=== PATIENT | female | born 1945 | race Caucasian/White ===

== ENCOUNTER 2020-08-03 08:43 | Outpatient (CLI) | payer OTHER, SELFPAY ==
--- NOTE | ~2020-08-03 | US_ITS ---
EXAMINATION: US art doppler w press MICHELL VICENTE EXAM DATE: 08/03/2020 12:38 INDICATION: Peripheral vascular disease. Nonhealing toe wound right foot. High blood pressure. TECHNIQUE: Segmental pressures and plethysmographic and Doppler waveforms of the brachial and lower e xtremity arteries were obtained. There is no prior study for comparison. FINDINGS: Right and left brachial artery pressures of 165 mm Hg and 178 mm Hg, respectively, are concordant (no rmal difference <= 30 mmHg). The right and left thigh-brachial pressure indices are 0.54, 0.52, resp ectively (normal > 1.2). RIGHT LEG: The ankle-brachial index (SRAVANTHI) is 0.35 (normal >= 0.9-1). The great toe-brachial index (TBI) is could not obtain (normal >= 0.65). The lower extremity ratios, segmental pressure gradients as follows; Proximal superficial femoral artery:- 0.54 (96 mmHg). Distal superficial femoral artery: ----- 0.52 (92 mmHg). Popliteal: 0.39 (69 mmHg). Dorsalis pedis: 0.26 (47 mmHg). Posterior tibial: 0.35 (63 mmHg). (Normal gradients <= 20-30 mmHg between adjacent levels on the same leg or the same levels on the two legs). Arterial waveforms are monophasic. LEFT LEG: The ankle-brachial index (SRAVANTHI) is 0.39 (normal >= 0.9-1). The great toe-brachial index (TBI) is could not obtain (normal >= 0.65). The lower extremity ratios, segmental pressure gradients as follows; Proximal superficial femoral artery:- 0.52 (93 mmHg). Distal superficial femoral artery: ----- 0.25 (44 mmHg). Popliteal: 0.33 (58 mmHg). Dorsalis pedis: 0.39 (69 mmHg). Posterior tibial: 0.39 (69 mmHg). (Normal gradients <= 20-30 mmHg between adjacent levels on the same leg or the same levels on the two legs). Arterial waveforms are monophasic. IMPRESSION: 1. Right ankle-brachial index 0.35, severely decreased. 2. Left ankle-brachial index 0.39, severely decreased. 3. Monophasic waveforms with poor inflow suspected probably from iliac arterial sclerosis, stenosis. Reviewed, dictated and finalized at location A. IMPRESSION: 1. Right ankle-brachial index 0.35, severely decreased. 2. Left ankle-brachial index 0.39, severely decreased. 3. Monophasic waveforms with poor inflow suspected probably from iliac arteria l sclerosis, stenosis.
== END 2020-08-03 08:44 | disposition home or self-care (01) ==
PROVIDERS: PCP Family Medicine; Visit Provider Podiatrist Foot & Ankle Surgery
DX: I73.9 Peripheral vascular disease, unspecified (principal)
CPT/HCPCS: 93923

== ENCOUNTER 2020-10-15 11:38 | Inpatient (IN) | payer OTHER, SELFPAY ==
[2020-10-15] VITALS (9 sets, daily range): BP systolic 109–129; BP diastolic 40–68; PULSE 98–112; RESP 17–22; TEMP 36.4–37; O2SAT 90–95; BMI 19.5
--- NOTE | ~2020-10-15 | CT_ITS ---
EXAMINATION: CT abdomen pelvis wo con DATE: 10/23/2020 15:08 INDICATION: Worsening abdominal pain. TECHNIQUE: Computed tomography (CT) of the abdomen and pelvis was performed without intravenous contr ast. Automated exposure control and iterative reconstruction technique were employed. The dose-length product was 500.04 mGy-cm. COMPARISON: CT abdomen and pelvis 10/15/2020 FINDINGS: The visualized portions of the lung bases demonstrate mucous plugging in right lower lobe. There are small pleural effusions, right worse than left. There are airspace opacities in right lower lobe, likely atelectasis. The heart size is normal. There are coronary artery calcifications. No per icardial effusion. The liver, gallbladder, spleen, pancreas, and adrenal glands are normal. Calcifica tions at the hilum of the kidneys are likely at least predominantly vascular. There is calcified athe rosclerosis of the aorta and many of the other arteries. Partially visualized are a right-sided axial -femoral bypass graft and a femorofemoral bypass graft. There is diffuse wall thickening of the colon , consistent with colitis. There are no dilated loops of bowel. There is trace pelvic ascites. There are no pathologically enlarged lymph nodes. There is internal fixation of proximal left femur. There are chronic burst fractures of the T10-L5 vertebral bodies. There is moderate lumbar spondylosis. IMPRESSION: 1. Pancolitis. 2. Small pleural effusions, left worse than right. 3. Mucous plugging in right lung lower lobe. Reviewed, dictated and finalized at location A. TY PATROL OFFICER
--- NOTE | ~2020-10-15 | XR_ITS ---
EXAMINATION: XR chest 1V portable EXAM DATE: 10/15/2020 12:07 INDICATION: Cough, nausea, diarrhea. TECHNIQUE: Portable AP frontal chest x-ray was obtained. Comparison is made to prior examination from 04/21/2016. FINDINGS: The lungs are clear. There are no pleural effusions. Cardiac silhouette is prominent but magnified on this AP technique. There is no pneumothorax suspected. The bones and soft tissues are unremarkable. IMPRESSION: No acute cardiopulmonary findings. Reviewed, dictated and finalized at location A. LOPMENT WRITER
--- NOTE | ~2020-10-15 | XR_ITS ---
XR abdomen obstructive series DATE: 10/19/2020 09:29 INDICATION: Generalized abdominal tenderness TECHNIQUE: Portable supine and upright AP views on 10/19/2020 at 0925 hours COMPARISON: 10/15/2020 CT abdomen pelvis FINDINGS: There are biconcave compression fracture deformities throughout the lower thoracic and lumb ar spine. Diffuse osteopenia. Compression screw and nail of proximal left femur. There is extensive atherosclerotic calcification of the abdominal aorta and iliac and femoral arterie s. Nonspecific bowel gas pattern without evidence of obstruction. No intraperitoneal free air is detecte d. IMPRESSION: Nonspecific bowel gas pattern; no evidence of obstruction or intraperitoneal free air Reviewed, dictated and finalized at Location A. Reviewed, dictated and finalized at location A. IQUER ZIGZAG IMPRESSION: Nonspecific bowel gas pattern; no evidence of obstruction or intrap eritoneal free air
--- NOTE | ~2020-10-15 | XR_ITS ---
XR chest 2V 10/16/2020 13:28 Indication: Hypoxia Procedure: AP and lateral views of the chest Comparison: Comparison to multiple prior studies sequentially, with oldest reviewed study dated 12/04/2013. Findings: Cardiomegaly. The lungs are hyperinflated which is consistent with, but not diagnostic of c hronic obstructive pulmonary disease. Right basilar infiltrates may represent atelectasis and/or pneu monia. There are multiple chronic thoracic compression fractures. No significant pleural effusion, ed wu or pneumothorax. No acute osseous abnormality. Impression: 1: Right basilar infiltrates may represent atelectasis and/or developing pneumonia. Reviewed, dictated and finalized at location A. CIATE MEDIA DIRECTOR Impression: 1: Right basilar infiltrates may represent atelectasis and/or developing pneumo eduarda.
--- NOTE | ~2020-10-15 | CT_ITS ---
EXAMINATION: CTA chest PE protocol DATE: 10/17/2020 13:38 INDICATION: Hypoxia. Tachycardia. TECHNIQUE: Computed tomography angiography (CTA) of the chest was performed with 100 mL Omnipaque-350 intravenous contrast timed to evaluate the pulmonary arteries. Coronal maximum intensity projection 3D-reconstructions were created by the technologist. Automated exposure control and iterative reconst ruction technique were employed. The dose-length product was 168.29 mGy-cm. COMPARISON: Chest 2 views 10/16/2020, CT abdomen and pelvis 10/15/2020 FINDINGS: Motion artifact is noted. There is mild scarring at the lung apices. There is mild emphysem a. There are small pleural effusions. There is mild atelectasis bilaterally. The heart size is normal . There are coronary artery calcifications. No pericardial effusion. There is no pulmonary embolus. T here is a patent right-sided axillofemoral bypass graft. There are calcifications at the linda of the kidneys, at least some of which are vascular. There are chronic fractures of most vertebral bodies. IMPRESSION: 1. No pulmonary embolus. 2. Small pleural effusions. 3. Mild emphysema. Reviewed, dictated and finalized at location A. T SPECIALIST
--- NOTE | ~2020-10-15 | US_ITS ---
EXAMINATION: US renal BI EXAM DATE: 10/16/2020 10:00 INDICATION: Left renal lesion on CT abd/pelvis. Bilateral nephrolithiasis. TECHNIQUE: Multiple grayscale and Doppler images of the kidneys were obtained (by a technologist who performed the scan) and subsequently reviewed. Correlation is made to CT from yesterday. FINDINGS: Right kidney: There is normal contour and echogenicity. It measures 9.4 x 5.2 x 4.9 centimeters. Th ere are no focal renal lesions identified. There is no hydronephrosis. Can't identify the kidney st ones. Left kidney: There is normal contour and echogenicity. It measures 12.0 x 4.9 x 4.9 centimeters. Th ere are no focal renal lesions identified. There is no hydronephrosis. Can't identify the kidney st ones. Bladder unremarkable. IMPRESSION: 1. Sonographically unremarkable kidneys, without evidence of underlying mass. Reviewed, dictated and finalized at location B. RMATION TECHNOLOGY MANAGER
--- NOTE | ~2020-10-15 | CT_ITS ---
EXAMINATION: CT abdomen pelvis w con EXAM DATE: 10/15/2020 13:13 INDICATION: Abdominal pain. TECHNIQUE: Spiral CT of the abdomen and pelvis was performed following intravenous injection of 100 m L Omnipaque 350. Axial, coronal and sagittal images were reviewed. The dose-length product (DLP) fo r this examination was 270.40 mGy-cm. The exposure was tailored according to patient size (auto mA e xposure control), and iterative reconstruction (ASIR) was used as additional dose reduction technique . There is no prior study for comparison. FINDINGS: There is severe scattered arteriosclerotic disease. There is a graft extending down the rig ht side of the thorax and abdomen to both common femoral arteries. The liver, spleen, adrenal glands and pancreas are unremarkable. Gallbladder is unremarkable. No biliary obstruction. Bilateral calyceal stones. There is small region of decreased enhancement in the left kidney superior pole, could be hemorrhagic cyst, pyelonephritis or less likely mass. Probable atrophic uterus. The bladder is unremarkable. There is no retroperitoneal or pelvic lymphadenopathy. The stomach and small bowel are unremarkable. Moderately edematous colonic wall throughout with flui d inside, appearance consistent with colitis. No pneumatosis or portal venous gas. Probable identific ation of a normal appendix. No free intraperitoneal gas. The heart is normal in size. There are no pericardial or pleural effusions. The lung bases are unremarkable. There are no osteoblastic or osteolytic lesions identified. Moderate chronic compression of all thoracolumbar vertebral bodies im aged. Left hip gamma nails. IMPRESSION: 1. Pancolitis. Probably infectious but given the extensive arteriosclerosis check lactate levels. 2. Small regions of decreased enhancement superior pole left kidney, differential diagnosis includin g hemorrhagic cyst, pyelonephritis, renal mass. Urinalysis. 3. Bilateral nephrolithiasis. 4. Moderate chronic compression fractures. Reviewed, dictated and finalized at location A. CONTROLLER IMPRESSION: 1. Pancolitis. Probably infectious but given the extensive arteriosclerosis ch ivanna lactate levels. 2. Small regions of decreased enhancement superior pole left kidney, different ial diagnosis including hemorrhagic cyst, pyelonephritis, renal mass. Urinalysi s. 3. Bilateral nephrolithiasis. 4. Moderate chronic compression fractures.
--- NOTE | ~2020-10-15 | XR_ITS ---
EXAMINATION: XR abdomen/kub 1V EXAM DATE: 10/22/2020 22:49 INDICATION: worsening stomach cramping TECHNIQUE: Frontal projection(s) of the abdomen for interpretation. Comparison is made to prior exami nation from 10/18/2020. FINDINGS: There is expected amount of colonic stool and gas. No small bowel dilation, nonobstructiv e bowel gas pattern. There are no suspicious calcifications identified. There is no organomegaly suspected. The bones are osteopenic. There are bony degenerative changes. Multiple chronic appearin g thoracolumbar compression fractures. There is left hip gamma nail. IMPRESSION: Unremarkable abdomen x-ray exam. Reviewed, dictated and finalized at location A. AD CUTTER
--- NOTE | 2020-10-15 12:00 | PC.NURSE ---
INFORMED PT OF NEED FOR URINE SPECIMEN. PT REFUSES. REFUSES STRAIGHT CATH AT THIS TIME.
[2020-10-15 12:06] LABS: Hematocrit 35.9 % (37.0-47.0); Hemoglobin 12.3 g/dL (12.0-15.0); Mean Corpuscular HGB Conc 34.3 g/dl (32-36); Mean Corpuscular Hemoglobin 32.5 pg (26-34); Mean Platelet Volume 10.8 fl (7.4-10.4); Platelet Count Result 219 k/mm3 (150-375); Red Blood Count 3.78 M/mm3 (4.2-5.4); Red Cell Distribution Width 13.6 % (11.5-14.5); White Blood Count 25.3 K/mm3 (4.5-10.0)
[2020-10-15 12:24] LABS: Sodium 133 mmol/L (137-145)
[2020-10-15 12:25] LABS: Anion Gap 9 mmol/L (8-16); Blood Urea Nitrogen 13 mg/dL (7-17); Calcium 8.4 mg/dL (8.4-10.2); Carbon Dioxide 32 mmol/L (22-30); Chloride 92 mmol/L (98-107); Estimated CRCL calculation 53 ml/min; Estimated Glomerular Filt Rate > 60; Glucose 123 mg/dL (65-105); Potassium 3.5 mmol/L (3.4-5.0)
[2020-10-15 12:26] LABS: Alanine Aminotransferase 18 U/L (4-35); Albumin Level 3.4 g/dL (3.5-5.1); Alkaline Phosphatase 149 U/L (38-126); Aspartate Amino Transferase 25 U/L (14-36); Bilirubin,Total 0.8 mg/dL (0.2-1.3)
[2020-10-15 12:27] LABS: Lactic Acid Reflex 1.7 mmol/L (0.7-2.1); Lipase 16 U/L (23-300)
--- NOTE | 2020-10-15 12:31 | ED.GENADULT ---
HPI - General Adult General Chief complaint: Nausea/Vomiting/Diarrhea Stated complaint: diarrhea for a couple weeks Time Seen by Provider: 10/15/20 12:15 Source: patient Mode of arrival: ambulatory Limitations: no limitations History of Present Illness HPI narrative: 75 years old white female who lives alone presents with diarrhea for the last 2 weeks associated with abdominal cramps. Patient reports watery stool 2-3 times a day. Patient denies any fever, chills, nausea, vomiting, similar symptoms, exposure to anybody known having COVID-19. Related Data Home Medications Medication Instructions Recorded Confirmed alendronate mg PO 10/15/20 amlodipine 10/15/20 hydrocodone-acetaminophen 10/15/20 10/15/20 rosuvastatin mg 10/15/20 Allergies Allergy/AdvReac Type Severity Reaction Status Date / Time diphenhydramine Allergy Intermediate SEVERE Verified 10/15/20 11:53 ITCHING codeine Allergy Unknown Unknown Verified 10/15/20 11:53 Penicillins Allergy Unknown Confusion Verified 10/15/20 11:53 Review of Systems Review of Systems: Narrative: CONSTITUTIONAL: Denies fever, chills, or sweats. EYES: Denies visual changes, redness, or discharge. ENT: Denies rhinorrhea, congestion, sore throat, or otalgia. CARDIOVASCULAR: Denies chest pain, palpitations, or edema. RESPIRATORY: Denies cough or dyspnea. GASTROINTESTINAL: Abdominal cramps with diarrhea GENITOURINARY: Denies dysuria or hematuria. SKIN: Denies rash or itching. MUSCULOSKELETAL: Denies back pain, joint pain, or myalgia. NEUROLOGIC: Denies headache, numbness, or weakness. PSYCHIATRIC: Denies anxiety or depression. PMFSH Family History Family History Other Family history of cardiovascular disease Social History Social History Smoking status: Never smoker Alcohol intake: current Gender identity (if verbalized by the patient): Female Exam Narrative: Exam Narrative: General appearance: Well-developed, well-nourished Skin: Normal color Head: Normocephalic, nontraumatic Eyes: Clear conjunctiva ENT: Oropharynx normal, ears normal, nose normal Neck: Supple, nontender Chest and respiratory: Airway patent, no respiratory distress, no accessory muscle use Heart: Regular rate/rhythm Abdomen: Diffusely tender, guarding, no rebound, quiet bowel sounds Vascular: Normal peripheral pulses, normal capillary refill. Musculoskeletal: Normal range of motion, nontender back Neurologic: Alert and oriented ?3, PROGRAMMER NUMERICAL CONTROL is normal as tested, no gross motor deficit Course Course Emergency Course: Stable Consultations Consultation #1: NANDINI Date: 10/15/20 Time: 13:57 Vital Signs Vital signs: Vital Signs Temperature 36.9 C 10/15/20 11:48 Pulse Rate 112 H 10/15/20 11:48 Respiratory Rate 17 10/15/20 11:48 Blood Pressure 127/60 10/15/20 11:48 Pulse Oximetry 95 10/15/20 11:48 Temperature 36.9 C 10/15/20 11:48 Pulse Rate 105 H 10/15/20 13:00 Respiratory Rate 20 10/15/20 13:00 Blood Pressure 124/50 L 10/15/20 13:00 Pulse Oximetry 95 10/15/20 13:00 Medical Decision Making [facility] Narrative Medical decision making narrative: Patient presents with diarrhea and abdominal cramps. Labs, IV fluids, CT abdomen and pelvis with IV contrast ordered. Further plan to follow Vital Signs Vital Signs: Vital Signs Temperature 36.9 C 10/15/20 11:48 Pulse Rate 112 H 10/15/20 11:48 Respiratory Rate 17 10/15/20 11:48 Blood Pressure 127/60 10/15/20 11:48 Pulse Oximetry 95 10/15/20 11:48 Temperature 36.9 C 10/15/20 11:48 Pulse Rate 105 H 10/15/20 13:0
[2020-10-15 12:42] LABS: Band Neutrophils Percent 6 % (0-6); Lymphocytes Absolute Manual 1.51 K/mm3 (1.1-4.5); Monocytes Absolute Manual 1.01 K/mm3 (0.1-0.90); Monocytes Percent Manual 4 % (3-9); Neutrophils Absolute Manual 22.77 K/mm3 (1.7-7.2); Neutrophils Percent Manual 84 % (46-73); Platelet Estimate Adequate (Adequate); Total Cells Counted 100
[2020-10-15] MEDS: SODIUM CHLORIDE 0.9% IV 1,000 ML 999 ML IV CONT (12:58)
--- NOTE | 2020-10-15 13:16 | PC.NURSE ---
PT STATES STILL UNABLE TO URINATE AT THIS TIME
[2020-10-15] MEDS: metroNIDAZOLE 500 MG/ISO 100ML 500 MG/100 ML BAG 100 MG IVPB (13:58)
--- NOTE | 2020-10-15 15:30 | PM.IMHP ---
H&P: HPI History of Present Illness Date/Time: 10/15/20 15:30 Chief complaint: Pancolitis, Diarrhea Narrative: Gregoria Vuong is a 75 year old female smoker with a history of hyperlipidemia was in her usual state of health until 2 weeks ago. She began having loose stools 2 to 3 times a day associated with abdominal cramping. This gradually worsened over the last couple of weeks. Today she had severe cramping and was incontinent of stool had to change her clothes and wash herself before she came to the emergency room. Her cramps or mainly upper abdominal without associated nausea or vomiting. There partially relieved by bowel movements. Initially were completely relieved by bowel movements. She has had decreased appetite eating only some eggs in gel over the past couple of weeks. Decreased fluid intake. Dizzy and lightheaded with the cramps prior to bowel movements. She denied recent travel or antibiotic use. No exposure to ill individuals. No nausea or emesis. No melena or hematochezia. She smokes about 6 cigarettes per day. She does not drink or use recreational drugs. No prior history of gastrointestinal issues. No recent intake of old or undercooked foods. Denied chest pain, shortness of breath, back pain, focal weakness or numbness, palpitations, rash, abnormal bleeding, dysuria or frequency. Review of Systems Review of Systems: All systems reviewed & are unremarkable except as noted in HPI and below PMFSH Past Medical History Medical History (Updated 10/15/20 @ 15:40 by Terry Woodward MD) H/O compression fracture of spine Hyperlipidemia Osteoporosis Peripheral arterial disease with history of revascularization Surgical History Surgical History (Updated 10/15/20 @ 15:51 by Terry Woodward MD) H/O carpal tunnel repair Right Hand History of open reduction and internal fixation (ORIF) procedure Left Tibia S/P vascular bypass LLE 08/2020 Family History Family History (Updated 10/15/20 @ 16:05 by Amaya Cai RN) Mother Heart attack Other Family history of cardiovascular disease Social History Social History (Updated 10/15/20 @ 15:52 by Terry Woodward MD) Years smoked: 55 Smoking status: Current every day smoker Tobacco type: cigarettes Additional smoking assessment comments: smoked 1/2 ppd for over 50 years Alcohol intake: former Alcohol use details: Does not currently drink Substance use: never Substance use type: does not use Living arrangements: alone Additional living arrangements comments: who resides in her own home with her cat Occupation/Education: retired Gender identity (if verbalized by the patient): Female Spiritual care concerns: No Meds Home Medications and Allergies Home Medications Medication Instructions Recorded Confirmed Type alendronate mg PO 10/15/20 History amlodipine 10/15/20 History hydrocodone-acetaminophen 10/15/20 10/15/20 History rosuvastatin mg 10/15/20 History Allergies Allergy/AdvReac Type Severity Reaction Status Date / Time diphenhydramine Allergy Intermediate SEVERE Verified 10/15/20 15:42 ITCHING codeine Allergy Unknown Confusion Verified 10/15/20 15:42 Penicillins Allergy Unknown Confusion Verified 10/15/20 15:42 Vital Signs Vital Signs - 24 hr 10/15/20 11:48 10/15/20 13:00 10/15/20 14:02 Temperature 98.4 F Pulse Rate 112 H 105 H 107 H Respiratory Rate 17 20 20 Blood Pressure 127/60 124/50 L 113/68 Pulse Oximetry 95 95 95 10/15/20 15:14 10/15/20 15:26 Temperature Pulse Rate 105 H 105 H Respiratory Rate 22 H 22 H Blood Pressure 119/60 119/60 Pulse Oximetry 92 93 Exam Narrative: Exam Narrative: HEENT: PERRL, sclerae nonicteric, pharyngeal mucosa pink and intact NECK: No JVD, adenopathy, or thyromegaly CHEST: Clear to auscultation. Normal effort. HEART: NL S1/S2, regular, no murmur ABDOMEN: BS+, soft, no mass, no bruits, DIFFUSE TEN
--- NOTE | 2020-10-15 15:49 | ADMGEN ---
This patient, Gregoria Vuong, was admitted to Medical Room 252-01. Patient/family oriented to hospital policies and general routines including ID bracelet, bed and alarms, visiting hours, pain management, procedures, bathroom and other care routines, personal items, smoking policy, room service/diet, and visiting hours. Information on how to activate the Rapid Response Team has been discussed. Patient/Family are encouraged to report perceived risks to care and to ask questions if they do not understand what they are told or what they should do. Report received from DIONNE Hyde.
[2020-10-15] MEDS: KCL 20 MEQ/D5/0.9% SOD CHL 1,000 ML 100 ML IV CONT (16:13)
[2020-10-15] MEDS: PROMETHAZINE HCL 25 MG/ML AMPUL 12.5 MG IV PUSH (18:42)
[2020-10-15] MEDS: metroNIDAZOLE 250MG/ISO 50 ML 250 MG/50 ML BAG 50 MG IVPB (18:43)
[2020-10-15] MEDS: metroNIDAZOLE 250MG/ISO 50 ML 250 MG/50 ML BAG 100 MG IVPB (23:45)
[2020-10-16] VITALS (9 sets, daily range): BP systolic 116–140; BP diastolic 43–60; PULSE 100–114; RESP 18–22; TEMP 36.4–37.3; O2SAT 85–98
[2020-10-16] MEDS: PROMETHAZINE HCL 25 MG/ML AMPUL 12.5 MG IV PUSH (02:30)
[2020-10-16 05:10] LABS: Basophils Absolute Auto 0.1 K/mm3 (0.0-0.1); Basophils Percent Auto 0.4 % (0.2-1.2); Eosinophils Absolute Auto 0.1 K/mm3 (0-0.3); Eosinophils Percent Auto 0.2 % (0-4.4); Hemoglobin 10.6 g/dL (12.0-15.0); Immature Granulocyte Absolute 0.17 K/mm3 (0.00-0.031); Immature Granulocyte Percent A 0.7 % (0-0.5); Lymphocytes Absolute Auto 0.45 K/mm3 (0.9-3.2); Lymphocytes Percent Auto 1.8 % (18.3-44.2); Mean Corpuscular HGB Conc 33.1 g/dl (32-36); Mean Corpuscular Hemoglobin 30.8 pg (26-34); Mean Platelet Volume 11.1 fl (7.4-10.4); Monocytes Absolute Auto 2.2 K/mm3 (0.1-0.6); Monocytes Percent Auto 8.8 % (2.6-8.5); Neutrophils Absolute Auto 22.1 K/mm3 (1.3-6.7); Neutrophils Percent Auto 88.1 % (45.5-73.1); Platelet Count Result 201 k/mm3 (150-375); Red Blood Count 3.44 M/mm3 (4.2-5.4); Red Cell Distribution Width 13.5 % (11.5-14.5)
[2020-10-16 05:13] LABS: Alanine Aminotransferase 12 U/L (4-35); Albumin Level 2.5 g/dL (3.5-5.1); Alkaline Phosphatase 114 U/L (38-126); Anion Gap 5 mmol/L (8-16); Aspartate Amino Transferase 17 U/L (14-36); Bilirubin,Total 0.6 mg/dL (0.2-1.3); Blood Urea Nitrogen 8 mg/dL (7-17); Calcium 7.4 mg/dL (8.4-10.2); Carbon Dioxide 29 mmol/L (22-30); Chloride 100 mmol/L (98-107); Estimated CRCL calculation 82 ml/min; Estimated Glomerular Filt Rate > 60; Glucose 153 mg/dL (65-105); Potassium 3.5 mmol/L (3.4-5.0); Sodium 134 mmol/L (137-145)
[2020-10-16] MEDS: KCL 20 MEQ/D5/0.9% SOD CHL 1,000 ML 100 ML IV CONT (05:52)
[2020-10-16] MEDS: metroNIDAZOLE 250MG/ISO 50 ML 250 MG/50 ML BAG 50 MG IVPB ×3 (05:52→17:15)
[2020-10-16 06:14] LABS: Large Platelets Present; Platelet Estimate Adequate (Adequate)
[2020-10-16 06:15] LABS: Atypical Lymphocytes Present
[2020-10-16] MEDS: CYANOCOBALAMIN 1,000 MCG TABLET 1000 MCG PO (08:28)
[2020-10-16] MEDS: ASCORBIC ACID 500 MG TABLET 1000 MG PO (08:28)
[2020-10-16] MEDS: ASPIRIN 81 MG CHEWABLE TABLET PO (08:28)
--- NOTE | 2020-10-16 10:22 | WPDGICN ---
Assessment and Plan Assessment and plan (1) Pancolitis: Code(s): K51.00 - Ulcerative (chronic) pancolitis without complications Status: Acute Assessment and Plan: Pancolitis identified by CT scan correlates with her diarrhea most likely infectious etiology. Plan is for stool cultures broad-spectrum antibiotic coverage if this fails to alleviate her symptoms a colonoscopy can be considered electively. We will follow with you. (2) Diarrhea: Qualifiers: Diarrhea type: unspecified type Qualified Code(s): R19.7 - Diarrhea, unspecified Code(s): R19.7 - Diarrhea, unspecified Status: Acute (3) Peripheral arterial disease with history of revascularization: Code(s): I73.9 - Peripheral vascular disease, unspecified; Z98.890 - Other specified postprocedural states Status: Acute GI Consult Note Consult date/time: 10/16/20 10:22 HPI: Gregoria Vuong is a 75 year old female Seen in evaluation at the request of the hospitalist service. Patient reports 1-2 week history of diarrhea stools. She reports loose stools 2 to 3 times a day that has persisted during this period of time. Because of abdominal cramping and incontinence of stool she present to the emergency room. A CT scan in the emergency room suggested pancolitis. For this reason she was admitted for IV fluids and further evaluation. Patient denies a known fever. She has had no bleeding. She denies weight loss. Patient denies any recent travel. She has not no known exposure to ill associates. Patient reports having had a a peripheral vascular surgery done on her right lower extremity several months ago. Review of Systems Review of Systems: All systems reviewed & are unremarkable except as noted in HPI and below PMFSH Past Medical History Medical History (Updated 10/15/20 @ 15:40 by Terry Woodward MD) H/O compression fracture of spine Hyperlipidemia Osteoporosis Peripheral arterial disease with history of revascularization Surgical History Surgical History (Updated 10/15/20 @ 15:51 by Terry Woodward MD) H/O carpal tunnel repair Right Hand History of open reduction and internal fixation (ORIF) procedure Left Tibia S/P vascular bypass LLE 08/2020 Family History Family History (Updated 10/15/20 @ 16:05 by Amaya Cai RN) Mother Heart attack Other Family history of cardiovascular disease Social History Social History (Updated 10/15/20 @ 15:52 by Terry Woodward MD) Years smoked: 55 Smoking status: Current every day smoker Tobacco type: cigarettes Additional smoking assessment comments: smoked 1/2 ppd for over 50 years Alcohol intake: former Alcohol use details: Does not currently drink Substance use: never Substance use type: does not use Living arrangements: alone Additional living arrangements comments: who resides in her own home with her cat Occupation/Education: retired Gender identity (if verbalized by the patient): Female Spiritual care concerns: No Meds Home Medications and Allergies Home Medications Medication Instructions Recorded Confirmed Type Aleve 220 mg PO BID 10/15/20 10/15/20 History Aspirin Childrens 81 mg PO DAILY 10/15/20 10/15/20 History Glucosamine 2,000 mg PO BID 10/15/20 10/15/20 History alendronate 70 mg PO WEEKLY 10/15/20 10/15/20 History amlodipine 10 mg PO DAILY 10/15/20 10/15/20 History ascorbate calcium (vitamin C) 1,200 mg PO DAILY 10/15/20 10/15/20 History ascorbic acid (vitamin C) 1 g PO DAILY 10/15/20 10/15/20 History estefania-mag-vit [id number] See Rx Instructions .ROUTE .COMPLEX 10/15/20 10/15/20 History [Estefania-Mag Zinc III] cetirizine 10 mg PO DAILY 10/15/20 10/15/20 History cyanocobalamin (vitamin B-12) 1,000 mcg PO DAILY 10/15/20 10/15/20 History [Vitamin B-12] guaifenesin 400 mg PO DAILY 10/15/20 10/15/20 History hydrocodone-acetaminophen 2 tablet PO Q4H PRN 10/15/20 10/15/20 Histor
--- NOTE | 2020-10-16 10:32 | PM.IMPN ---
Progress Note: A&P Assessment and Plan (1) Sepsis: Code(s): A41.9 - Sepsis, unspecified organism Status: Acute Assessment and Plan: Supported by leukocytosis, tachycardia, and tachypnea. The suspected source is pancolitis. Continue IV antibiotics. Blood cultures were obtained and are pending. Lactic acid is normal. Continue to monitor CBC daily, hemodynamics, and urine output. (2) Pancolitis: Code(s): K51.00 - Ulcerative (chronic) pancolitis without complications Status: Acute Assessment and Plan: She reports diarrhea, nausea, and vomiting for 4 weeks, worse in the past 4 days. Differential diagnosis includes infectious, ischemic, and inflammatory bowel disease. She did take clindamycin and cephalexin 06/2020 and 07/2020. Lactic acid is normal. She has no hx of similar episodes and no hx of IBD. Stool cultures were ordered and are pending. Nausea and vomiting have resolved. She has not had any further episodes of diarrhea today. Advance diet slowly as tolerated. Continue empiric broad-spectrum antibiotic therapy with IV levaquin and metronidazole. Stop IV fluids as she is tolerating PO intake well. Appreciate GI input. Colonoscopy may be considered outpatient should sx persist. WBC has improved minimally today but is still markedly elevated. She is afebrile. Await stool cultures. (3) Acute respiratory failure with hypoxia: Code(s): J96.01 - Acute respiratory failure with hypoxia Status: Acute Assessment and Plan: Etiology unclear. CXR was ordered last night as oxygen saturation dropped while sleeping and 1 liter pre nasal cannula applied. She was increased to 2 liters per nasal cannula today. CXR showed no acute process. Will check apnea link. Stop IV fluids. She reports a hx of chronic congestion, cough for 2 years. She also has pursed lip breathing at times. Expiration is prolonged with some rhonchi at the bases. She will benefit from outpatient pulmonary function testing. Will add albuterol PRN. Repeat CXR for today. Continue supplemental oxygen as needed to maintain oxygen saturation >90%. Wean as tolerated. I was able to wean her to room air during my visit. Monitor closely. (4) Peripheral arterial disease with history of revascularization: Code(s): I73.9 - Peripheral vascular disease, unspecified; Z98.890 - Other specified postprocedural states Status: Acute Assessment and Plan: Continue ASA and rosuvastatin. Continue outpatient follow-up with vascular surgery. (5) Dry mouth: Code(s): R68.2 - Dry mouth, unspecified Status: Acute Assessment and Plan: Continue biotene. (6) Hypertension: Code(s): I10 - Essential (primary) hypertension Status: Acute Assessment and Plan: Blood pressures are reasonable. Amlodipine is on hold for now. Resume when clinically appropriate. (7) Tobacco dependence: Code(s): F17.200 - Nicotine dependence, unspecified, uncomplicated Status: Acute Assessment and Plan: Continue to encourage smoking cessation. I spent 5 minutes counseling the patient on smoking cessation today including adverse cardiovascular outcomes and cancer. She declines the need for a nicotine patch. She is currently smoking 6 cigarettes per day. Additional Plan Wound care will be consulted for her right great toe wound. Subjective Date/time seen: 10/16/20 10:32 Mrs. Vuong is a 75 y.o. female with PMH significant for hyperlipidemia, osteoporosis, hypertension, and peripheral arterial disease s/p femoral to femoral bypass with vein graft 09/04/20 who is seen in follow-up for pancolitis. She reports no further nausea or vomiting today. She has not had any diarrhea yet. She is tolerating clear liquids. She reports chronic dry mouth and uses biotene at home. She denies chest pain and dyspnea. She denies calf pain and swelling. She reports no significant abdominal pain at this ti
[2020-10-16] MEDS: ROSUVASTATIN 10 MG TABLET PO (11:23)
[2020-10-16] MEDS: SALIVA SUBSTITUTE COMBO RINSE 237 ML BOTTLE 15 ML PO ×3 (11:23→21:28)
[2020-10-16] MEDS: NEOMYCIN/POLYMYXIN/BACITRACIN OINTMENT 15 GM TUBE 1 APPLIC TOPICAL (14:46)
[2020-10-16] MEDS: levoFLOXacin 500 MG/D5W 100 ML 500 MG/100 ML BAG 100 MG IVPB (14:46)
[2020-10-16] MEDS: ENOXAPARIN 40 MG/0.4 ML SYRINGE SUB-Q (21:28)
[2020-10-17] VITALS (8 sets, daily range): BP systolic 98–130; BP diastolic 42–64; PULSE 72–106; RESP 16–22; TEMP 35.9–37; O2SAT 93–97
[2020-10-17] MEDS: metroNIDAZOLE 250MG/ISO 50 ML 250 MG/50 ML BAG 100 MG IVPB ×2 (00:08→06:24)
[2020-10-17 05:55] LABS: Basophils Absolute Auto 0.1 K/mm3 (0.0-0.1); Basophils Percent Auto 0.4 % (0.2-1.2); Eosinophils Absolute Auto 0.1 K/mm3 (0-0.3); Eosinophils Percent Auto 0.6 % (0-4.4); Hematocrit 31.3 % (37.0-47.0); Hemoglobin 10.5 g/dL (12.0-15.0); Immature Granulocyte Absolute 0.11 K/mm3 (0.00-0.031); Immature Granulocyte Percent A 0.7 % (0-0.5); Lymphocytes Absolute Auto 0.62 K/mm3 (0.9-3.2); Lymphocytes Percent Auto 3.9 % (18.3-44.2); Mean Corpuscular HGB Conc 33.5 g/dl (32-36); Mean Corpuscular Hemoglobin 31.7 pg (26-34); Mean Corpuscular Volume 94.6 fl (80-100); Mean Platelet Volume 10.7 fl (7.4-10.4); Monocytes Absolute Auto 1.7 K/mm3 (0.1-0.6); Monocytes Percent Auto 10.6 % (2.6-8.5); Neutrophils Absolute Auto 13.5 K/mm3 (1.3-6.7); Neutrophils Percent Auto 83.8 % (45.5-73.1); Platelet Count Result 210 k/mm3 (150-375); Red Blood Count 3.31 M/mm3 (4.2-5.4); Red Cell Distribution Width 13.9 % (11.5-14.5); White Blood Count 16.1 K/mm3 (4.5-10.0)
[2020-10-17 06:18] LABS: Anion Gap 4 mmol/L (8-16); Blood Urea Nitrogen 7 mg/dL (7-17); Calcium 7.3 mg/dL (8.4-10.2); Carbon Dioxide 30 mmol/L (22-30); Chloride 99 mmol/L (98-107); Estimated CRCL calculation 67 ml/min; Estimated Glomerular Filt Rate > 60; Glucose 111 mg/dL (65-105); Potassium 3.4 mmol/L (3.4-5.0); Sodium 133 mmol/L (137-145)
[2020-10-17 07:40] LABS: CRP 31.1 mg/dL (<1.0)
[2020-10-17] MEDS: ASPIRIN 81 MG CHEWABLE TABLET PO (08:14)
[2020-10-17] MEDS: POTASSIUM CHLORIDE 20 MEQ TABLET PO (08:14)
[2020-10-17] MEDS: ASCORBIC ACID 500 MG TABLET 1000 MG PO (08:14)
[2020-10-17] MEDS: ROSUVASTATIN 10 MG TABLET PO (08:14)
[2020-10-17] MEDS: NEOMYCIN/POLYMYXIN/BACITRACIN OINTMENT 15 GM TUBE 1 APPLIC TOPICAL (08:15)
[2020-10-17] MEDS: SALIVA SUBSTITUTE COMBO RINSE 237 ML BOTTLE 15 ML PO ×4 (08:15→20:43)
[2020-10-17] MEDS: CYANOCOBALAMIN 1,000 MCG TABLET 1000 MCG PO (08:15)
--- NOTE | 2020-10-17 09:46 | PM.IMPN ---
Progress Note: A&P Assessment and Plan (1) Sepsis: Code(s): A41.9 - Sepsis, unspecified organism Status: Acute Assessment and Plan: Supported by leukocytosis, tachycardia, and tachypnea on admission -CT showing pancolitis and pt is having diarrhea which appears to be the cause -Suspect infx and/or Cdiff with her leukocytosis and does have abx hx -await cx but for now continue Levaquin, flagyl and oral vanc. Will narrow down depending on cultures -Blood cultures neg so far (2) Pancolitis: Code(s): K51.00 - Ulcerative (chronic) pancolitis without complications Status: Acute Assessment and Plan: As above -Will need colonoscopy outpt at least -await cultures -Differential diagnosis includes infectious, ischemic, and inflammatory bowel disease. -WBC and symptoms improving. (3) Acute respiratory failure with hypoxia: Code(s): J96.01 - Acute respiratory failure with hypoxia Status: Acute Assessment and Plan: Pt continues to require o2 -She is a long time smoker and could have chronic o2 needs which went undiagnosed -She is on abx which cover PNA -CXR shows atelectasis or developing PNA -Since pt had recent sx and has been tachycardic at times, will order CTA to assess for PE -Wean o2 as tolerated (4) Peripheral arterial disease with history of revascularization: Code(s): I73.9 - Peripheral vascular disease, unspecified; Z98.890 - Other specified postprocedural states Status: Acute Assessment and Plan: Continue ASA and rosuvastatin -Continue outpatient follow-up with vascular surgery (5) Dry mouth: Code(s): R68.2 - Dry mouth, unspecified Status: Acute Assessment and Plan: Continue biotene. (6) Hypertension: Code(s): I10 - Essential (primary) hypertension Status: Acute Assessment and Plan: Last bp 114/64 -Continue to hold norvasc since pt continues to run soft and is still having diarrhea (7) Tobacco dependence: Code(s): F17.200 - Nicotine dependence, unspecified, uncomplicated Status: Acute Assessment and Plan: Continue to encourage smoking cessation. I spent 5 minutes counseling the patient on smoking cessation today including adverse cardiovascular outcomes and cancer. She declines the need for a nicotine patch. She is currently smoking 6 cigarettes per day. Additional Plan Time Spent With Patient Time with patient: 25 - 35 minutes Subjective Date/time seen: 10/17/20 09:46 Interval history: Pt is a 75-year-old female here for colitis. Patient was seen today and states her diarrhea is better. She had to straight liquid bowel movements today but that has improved since admission. Her abdominal pain has improved but she still has pain on palpation. Right now she feels thirsty and a little nauseous. She has chronic back pain that was bothering her during physical therapy. She also has a chronic cough that has been unchanged for 2+ years that she attributes to smoking. She denies chest pain, shortness of breath, dyspnea on exertion or leg swelling Review of Systems Review of Systems: All systems reviewed & are unremarkable except as noted in HPI and below Exam Narrative: Exam Narrative: General: Well developed well nourished patient in NAD HEENT: normocephalic Neck: supple Neuro: Alert and oriented x4 CV:RRR Resp: Decreased breath sounds, bilaterally. No conversational dyspnea and wet cough noted on exam Abd: Soft, non distended. Pain to palpation in all areas. Positive bowel sounds Extremities: No swelling, erythema, or pain to palpation. Ulcer on the dorsal aspect of the right great toe which appears superficial and no infection suspected Skin: Groin incisions which are healing well without dehiscence, discharge or bleeding Objective Data Vital Signs Vital Signs: Vital Signs - 24 hr 10/16/20 11:42 10/16/20 12:00 10/16/20 15:5
--- NOTE | 2020-10-17 11:00 | WPDGIPROGNO ---
Progress Note: A&P Assessment and Plan (1) Pancolitis: Code(s): K51.00 - Ulcerative (chronic) pancolitis without complications Status: Acute (2) C. difficile colitis: Code(s): A04.72 - Enterocolitis due to Clostridium difficile, not specified as recurrent Status: Acute Assessment and Plan: Stool is positive for C difficile toxin. This is likely etiology for her pancolitis. Agree with oral vancomycin supplement this with intravenous metronidazole. Continue supportive care she will need IV fluids until diet as tolerated. Subjective Date/time seen: 10/17/20 11:00 Patient continues to have diarrhea. Review of Systems Review of Systems: All systems reviewed & are unremarkable except as noted in HPI and below Exam Narrative: Exam Narrative: Abdomen soft with mild diffuse tenderness. Bowel sounds are present. Objective Data Vital Signs Vital Signs: Vital Signs - 24 hr 10/16/20 11:42 10/16/20 12:00 10/16/20 15:58 Temperature 99.2 F Pulse Rate 108 H Respiratory Rate 18 Blood Pressure 129/60 Pulse Oximetry 85 L 94 94 10/16/20 16:00 10/16/20 21:39 10/17/20 02:00 Temperature 99 F 98.0 F 96.6 F L Pulse Rate 114 H 114 H 106 H Respiratory Rate 20 22 H 16 Blood Pressure 119/43 L 130/44 L 103/47 L Pulse Oximetry 97 97 97 10/17/20 05:45 10/17/20 08:27 10/17/20 10:00 Temperature 97.3 F L 98.0 F Pulse Rate 72 104 H Respiratory Rate 22 H 22 H Blood Pressure 114/64 130/53 L Pulse Oximetry 95 95 95 Intake/Output Intake/Output: Intake & Output 10/14/20 10/15/20 10/16/20 10/17/20 23:59 23:59 23:59 23:59 Intake Total 1670 2910 320 Output Total 800 100 Balance 1670 2110 220 Meds/Results Medications: Active Medications Generic Name Dose Route Start Last Admin Trade Name Freq PRN Reason Stop Dose Admin Albuterol 2.5 mg 10/16/20 11:06 Albuterol Sulfate Neb 2.5 Mg/0.5 Ml Inh INHALATION Q6HRT PRN Shortness Of Breath Alendronate Sodium 70 mg 10/21/20 06:30 Alendronate Sodium 70 Mg Tablet PO Sa@0630 [facility] Ascorbic Acid 1,000 mg 10/16/20 09:00 10/17/20 08:14 Ascorbic Acid 500 Mg Tablet PO 1,000 mg DAILY [facility] Administration Aspirin 81 mg 10/16/20 08:00 10/17/20 08:14 Aspirin 81 Mg Chewable Tablet PO 81 mg DAILY@0800 [facility] Administration Cyanocobalamin 1,000 mcg 10/16/20 09:00 10/17/20 08:15 Cyanocobalamin 1,000 Mcg Tablet PO 1,000 mcg DAILY [facility] Administration Enoxaparin Sodium 40 mg 10/16/20 21:00 10/16/20 21:28 Enoxaparin 40 Mg/0.4 Ml Syringe SUB-Q 40 mg HS [facility] Administration Miconazole Nitrate 1 applic 10/17/20 09:00 10/17/20 08:15 Miconazole 2% Antifungal Ointment 56 Gm TOPICAL 1 applic Q12HR [facility] Administration Neomycin/Polymyxin/Bacitracin 1 applic 10/16/20 09:00 10/17/20 08:15 Neomycin/Polymyxin/Bacitracin Ointment 15 Gm Tube TOPICAL 1 applic QAM [facility] Administration Promethazine HCl 12.5 mg 10/15/20 17:26 10/16/20 02:30 Promethazine Hcl 25 Mg/Ml Ampul IV PUSH 12.5 mg Q6H PRN Administration Nausea And Vomiting Rosuvastatin Calcium 10 mg 10/16/20 09:00 10/17/20 08:14 Rosuvastatin 10 Mg Tablet PO 10 mg QAM [facility] Administration Saliva Substitute 15 ml 10/16/20 13:00 10/17/20 08:15 Saliva Substitute Combo Rinse 237 Ml Bottle PO 15 ml QID [facility] Administration Vancomycin HCl 125 mg 10/17/20 12:00 Vancomycin Oral 125 Mg/2.5 Ml Syrup PO Q6HR [facility] Radiology Results: ITS Impressions Abdomen/Pelvis CT 10/15/20 13:17 IMPRESSION: 1. Pancolitis. Probably infectious but given the extensive arteriosclerosis check lactate levels. 2. Small regions of decreased enhancement superior pole left kidney, differential diagnosis including hemorrhagic cyst, pyelonephritis, renal mass. Urinalysis. 3. Bilateral nephrolithiasis. 4. Moderate chronic compression fractures. Renal Ultrasound 10/16/20 10:02 IMPRESSION: 1. S
[2020-10-17] MEDS: VANCOMYCIN ORAL 125 MG/2.5 ML SYRUP PO ×3 (12:38→23:59)
[2020-10-17] MEDS: ENOXAPARIN 40 MG/0.4 ML SYRINGE SUB-Q (20:42)
[2020-10-18] VITALS (7 sets, daily range): BP systolic 108–122; BP diastolic 45–53; PULSE 90–101; RESP 16–24; TEMP 36.1–38.2; O2SAT 91–96
[2020-10-18 05:38] LABS: Basophils Absolute Auto 0.1 K/mm3 (0.0-0.1); Basophils Percent Auto 0.5 % (0.2-1.2); Eosinophils Absolute Auto 0.1 K/mm3 (0-0.3); Eosinophils Percent Auto 1.4 % (0-4.4); Hematocrit 31.4 % (37.0-47.0); Hemoglobin 10.5 g/dL (12.0-15.0); Lymphocytes Absolute Auto 0.63 K/mm3 (0.9-3.2); Lymphocytes Percent Auto 6.3 % (18.3-44.2); Mean Corpuscular HGB Conc 33.4 g/dl (32-36); Mean Corpuscular Hemoglobin 31.3 pg (26-34); Mean Corpuscular Volume 93.7 fl (80-100); Mean Platelet Volume 10.3 fl (7.4-10.4); Monocytes Absolute Auto 1.6 K/mm3 (0.1-0.6); Monocytes Percent Auto 15.9 % (2.6-8.5); Neutrophils Absolute Auto 7.5 K/mm3 (1.3-6.7); Neutrophils Percent Auto 74.9 % (45.5-73.1); Platelet Count Result 217 k/mm3 (150-375); Red Blood Count 3.35 M/mm3 (4.2-5.4); Red Cell Distribution Width 14.2 % (11.5-14.5)
[2020-10-18] MEDS: VANCOMYCIN ORAL 125 MG/2.5 ML SYRUP PO ×3 (05:50→17:18)
[2020-10-18 05:53] LABS: Potassium 3.4 mmol/L (3.4-5.0)
[2020-10-18 05:59] LABS: Blood Urea Nitrogen 6 mg/dL (7-17)
[2020-10-18 06:00] LABS: Anion Gap 6 mmol/L (8-16); Calcium 7.3 mg/dL (8.4-10.2); Carbon Dioxide 29 mmol/L (22-30); Chloride 95 mmol/L (98-107); Estimated CRCL calculation 82 ml/min; Estimated Glomerular Filt Rate > 60; Glucose 112 mg/dL (65-105); Sodium 130 mmol/L (137-145)
[2020-10-18 06:12] LABS: CRP 25.8 mg/dL (<1.0)
[2020-10-18] MEDS: ROSUVASTATIN 10 MG TABLET PO (08:27)
[2020-10-18] MEDS: CYANOCOBALAMIN 1,000 MCG TABLET 1000 MCG PO (08:27)
[2020-10-18] MEDS: ASPIRIN 81 MG CHEWABLE TABLET PO (08:28)
[2020-10-18] MEDS: ASCORBIC ACID 500 MG TABLET 1000 MG PO (08:28)
[2020-10-18] MEDS: NEOMYCIN/POLYMYXIN/BACITRACIN OINTMENT 15 GM TUBE 1 APPLIC TOPICAL (08:29)
[2020-10-18] MEDS: SALIVA SUBSTITUTE COMBO RINSE 237 ML BOTTLE 15 ML PO ×4 (08:29→20:42)
--- NOTE | 2020-10-18 09:35 | PM.IMPN ---
Progress Note: A&P Assessment and Plan (1) C. difficile colitis: Code(s): A04.72 - Enterocolitis due to Clostridium difficile, not specified as recurrent Status: Acute Assessment and Plan: C diff culture positive -continue oral vancomycin -white blood cell count now normal -patient continues to have cramping and diarrhea -add bannitrol (2) Sepsis: Code(s): A41.9 - Sepsis, unspecified organism Status: Acute Assessment and Plan: Resolved,supported by leukocytosis, tachycardia, and tachypnea on admission -CT showing pancolitis and pt is having diarrhea which appears to be the cause -C diff positive -Levaquin and Flagyl discontinued. Continue oral vanc -Blood cultures neg so far (3) Pancolitis: Code(s): K51.00 - Ulcerative (chronic) pancolitis without complications Status: Acute Assessment and Plan: As above (4) Acute respiratory failure with hypoxia: Code(s): J96.01 - Acute respiratory failure with hypoxia Status: Acute Assessment and Plan: Pt continues to require o2 -She is a long time smoker and could have chronic o2 needs which went undiagnosed -CTA shows no pneumonia or PE -Wean o2 as tolerated (5) Peripheral arterial disease with history of revascularization: Code(s): I73.9 - Peripheral vascular disease, unspecified; Z98.890 - Other specified postprocedural states Status: Acute Assessment and Plan: Continue ASA and rosuvastatin -Continue outpatient follow-up with vascular surgery (6) Dry mouth: Code(s): R68.2 - Dry mouth, unspecified Status: Acute Assessment and Plan: Continue biotene. (7) Hypertension: Code(s): I10 - Essential (primary) hypertension Status: Acute Assessment and Plan: Last bp 117/49 -Continue to hold norvasc since pt continues to run soft and is still having diarrhea (8) Tobacco dependence: Code(s): F17.200 - Nicotine dependence, unspecified, uncomplicated Status: Acute Assessment and Plan: Continue to encourage smoking cessation. I spent 5 minutes counseling the patient on smoking cessation today including adverse cardiovascular outcomes and cancer. She declines the need for a nicotine patch. She is currently smoking 6 cigarettes per day. I explained to her she continues to smoke she may need oxygen for the rest of her life Additional Plan Subjective Date/time seen: 10/18/20 09:35 Interval history: Pt is a 75-year-old female here for colitis. Patient was seen today and states she is not doing very well today. She continues to have abdominal cramping that she rates an 8/10. She says this has been pretty constant since admission and not getting much better. She continues to have liquid diarrhea and has had about 4 bowel movements today. She feels nauseated and 50% of her meals. She denies cough, shortness of breath, chest pain, fevers, chills, or leg swelling Review of Systems Review of Systems: All systems reviewed & are unremarkable except as noted in HPI and below Exam Narrative: Exam Narrative: General: Well developed well nourished patient in NAD HEENT: normocephalic Neck: supple Neuro: Alert and oriented x4 CV:RRR Resp: Decreased breath sounds, bilaterally. No conversational dyspnea Abd: Soft, non distended. Pain to palpation in all areas. Positive bowel sounds Extremities: No swelling, erythema, or pain to palpation. Ulcer on the dorsal aspect of the right great toe which appears superficial and no infection suspected Skin: Groin incisions which are healing well without dehiscence, discharge or bleeding Objective Data Vital Signs Vital Signs: Vital Signs - 24 hr 10/17/20 10:00 10/17/20 14:00 10/17/20 17:20 Temperature 98.0 F 98.4 F 98.6 F Pulse Rate 104 H 95 96 Respiratory Rate 22 H 22 H 20 Blood Pressure 130/53 L 105/42 L 102/47 L Pulse Oximetry 95 95 93 1
[2020-10-18] MEDS: POTASSIUM CHLORIDE 20 MEQ TABLET PO (10:37)
--- NOTE | 2020-10-18 11:32 | WPDGIPROGNO ---
Progress Note: A&P Assessment and Plan (1) C. difficile colitis: Code(s): A04.72 - Enterocolitis due to Clostridium difficile, not specified as recurrent Status: Acute Assessment and Plan: Stool positive for C difficile toxin. This accounts for her diarrhea, sepsis and pancolitis on CT scan. Because of ongoing diarrhea oral vancomycin should continue for a full course. We will add Questran in hopes to contain the diarrhea. (2) Pancolitis: Code(s): K51.00 - Ulcerative (chronic) pancolitis without complications Status: Acute Subjective Date/time seen: 10/18/20 11:32 Patient continues to complain of ongoing diarrhea. No bleeding reported. Stool confirmed to have C difficile toxin. Review of Systems Review of Systems: All systems reviewed & are unremarkable except as noted in HPI and below Exam Narrative: Exam Narrative: Physical exam reveals abdomen to be soft nontender. No organomegaly. Stools positive for C diff toxin. Objective Data Vital Signs Vital Signs: Vital Signs - 24 hr 10/17/20 14:00 10/17/20 17:20 10/17/20 20:01 Temperature 98.4 F 98.6 F Pulse Rate 95 96 Respiratory Rate 22 H 20 Blood Pressure 105/42 L 102/47 L Pulse Oximetry 95 93 94 10/17/20 21:21 10/18/20 02:00 10/18/20 05:37 Temperature 97.0 F L 96.9 F L 97.7 F Pulse Rate 103 H 101 H 99 Respiratory Rate 20 20 16 Blood Pressure 98/43 L 110/45 L 117/49 L Pulse Oximetry 97 96 96 10/18/20 08:38 10/18/20 10:15 Temperature 99.2 F Pulse Rate 99 Respiratory Rate 24 H Blood Pressure 111/48 L Pulse Oximetry 96 94 Intake/Output Intake/Output: Intake & Output 10/15/20 10/16/20 10/17/20 10/18/20 23:59 23:59 23:59 23:59 Intake Total 1670 2910 1010 740 Output Total 800 250 300 Balance 1670 2110 760 440 Meds/Results Medications: Active Medications Generic Name Dose Route Start Last Admin Trade Name Freq PRN Reason Stop Dose Admin Albuterol 2.5 mg 10/16/20 11:06 Albuterol Sulfate Neb 2.5 Mg/0.5 Ml Inh INHALATION Q6HRT PRN Shortness Of Breath Alendronate Sodium 70 mg 10/21/20 06:30 Alendronate Sodium 70 Mg Tablet PO Sa@0630 [facility] Ascorbic Acid 1,000 mg 10/16/20 09:00 10/18/20 08:28 Ascorbic Acid 500 Mg Tablet PO 1,000 mg DAILY [facility] Administration Aspirin 81 mg 10/16/20 08:00 10/18/20 08:28 Aspirin 81 Mg Chewable Tablet PO 81 mg DAILY@0800 [facility] Administration Cyanocobalamin 1,000 mcg 10/16/20 09:00 10/18/20 08:27 Cyanocobalamin 1,000 Mcg Tablet PO 1,000 mcg DAILY [facility] Administration Enoxaparin Sodium 40 mg 10/16/20 21:00 10/17/20 20:42 Enoxaparin 40 Mg/0.4 Ml Syringe SUB-Q 40 mg HS [facility] Administration Miconazole Nitrate 1 applic 10/17/20 09:00 10/18/20 08:28 Miconazole 2% Antifungal Ointment 56 Gm TOPICAL 1 applic Q12HR [facility] Administration Neomycin/Polymyxin/Bacitracin 1 applic 10/16/20 09:00 10/18/20 08:29 Neomycin/Polymyxin/Bacitracin Ointment 15 Gm Tube TOPICAL 1 applic QAM [facility] Administration Promethazine HCl 12.5 mg 10/15/20 17:26 10/16/20 02:30 Promethazine Hcl 25 Mg/Ml Ampul IV PUSH 12.5 mg Q6H PRN Administration Nausea And Vomiting Rosuvastatin Calcium 10 mg 10/16/20 09:00 10/18/20 08:27 Rosuvastatin 10 Mg Tablet PO 10 mg QAM [facility] Administration Saliva Substitute 15 ml 10/16/20 13:00 10/18/20 08:29 Saliva Substitute Combo Rinse 237 Ml Bottle PO 15 ml QID [facility] Administration Vancomycin HCl 125 mg 10/17/20 12:00 10/18/20 05:50 Vancomycin Oral 125 Mg/2.5 Ml Syrup PO 125 mg Q6HR [facility] Administration Radiology Results: ITS Impressions Abdomen/Pelvis CT 10/15/20 13:17 IMPRESSION: 1. Pancolitis. Probably infectious but given the extensive arteriosclerosis check lactate levels. 2. Small regions of decreased enhancement superior pole left kidney, differential diagnosis including hemorrhagic cyst, pyelonephritis, renal mass. Urinalysis. 3. Bilat
[2020-10-18] MEDS: CHOLESTYRAMINE LIGHT 4 GM POWD.PACK PO (17:18)
[2020-10-18] MEDS: ENOXAPARIN 40 MG/0.4 ML SYRINGE SUB-Q (20:42)
[2020-10-19] VITALS (7 sets, daily range): BP systolic 96–122; BP diastolic 35–48; PULSE 84–99; RESP 15–24; TEMP 36.9–38.2; O2SAT 90–95
[2020-10-19] MEDS: VANCOMYCIN ORAL 125 MG/2.5 ML SYRUP PO ×4 (00:04→17:08)
[2020-10-19 06:06] LABS: Basophils Percent Auto 0.4 % (0.2-1.2); Eosinophils Absolute Auto 0.1 K/mm3 (0-0.3); Eosinophils Percent Auto 1.7 % (0-4.4); Hemoglobin 10.7 g/dL (12.0-15.0); Immature Granulocyte Absolute 0.06 K/mm3 (0.00-0.031); Immature Granulocyte Percent A 0.8 % (0-0.5); Lymphocytes Absolute Auto 0.82 K/mm3 (0.9-3.2); Lymphocytes Percent Auto 10.7 % (18.3-44.2); Mean Corpuscular HGB Conc 33.4 g/dl (32-36); Mean Corpuscular Volume 92.8 fl (80-100); Mean Platelet Volume 10.6 fl (7.4-10.4); Monocytes Absolute Auto 1.7 K/mm3 (0.1-0.6); Monocytes Percent Auto 22.4 % (2.6-8.5); Neutrophils Absolute Auto 4.9 K/mm3 (1.3-6.7); Platelet Count Result 219 k/mm3 (150-375); Red Blood Count 3.45 M/mm3 (4.2-5.4); Red Cell Distribution Width 14.1 % (11.5-14.5); White Blood Count 7.6 K/mm3 (4.5-10.0)
[2020-10-19 06:46] LABS: Hypochromasia 3+ (NORMAL); Platelet Estimate Adequate (Adequate); Stomatocytes 1+ (NORMAL)
[2020-10-19 06:47] LABS: Anion Gap 1 mmol/L (8-16); Blood Urea Nitrogen 5 mg/dL (7-17); CRP 20.7 mg/dL (<1.0); Calcium 7.4 mg/dL (8.4-10.2); Carbon Dioxide 34 mmol/L (22-30); Chloride 94 mmol/L (98-107); Estimated CRCL calculation 82 ml/min; Estimated Glomerular Filt Rate > 60; Glucose 100 mg/dL (65-105); Magnesium 2.2 mg/dL (1.6-2.3); Potassium 3.7 mmol/L (3.4-5.0); Sodium 129 mmol/L (137-145)
[2020-10-19] MEDS: ROSUVASTATIN 10 MG TABLET PO (08:23)
[2020-10-19] MEDS: CYANOCOBALAMIN 1,000 MCG TABLET 1000 MCG PO (08:23)
[2020-10-19] MEDS: metroNIDAZOLE 500 MG/ISO 100ML 500 MG/100 ML BAG 100 MG IVPB ×3 (08:23→17:08)
[2020-10-19] MEDS: ASCORBIC ACID 500 MG TABLET 1000 MG PO (08:23)
[2020-10-19] MEDS: ASPIRIN 81 MG CHEWABLE TABLET PO (08:23)
[2020-10-19] MEDS: SALIVA SUBSTITUTE COMBO RINSE 237 ML BOTTLE 15 ML PO ×4 (08:24→21:39)
[2020-10-19] MEDS: SODIUM CHLORIDE 0.9% IV 1,000 ML 75 ML IV CONT ×2 (08:24→22:14)
[2020-10-19] MEDS: NEOMYCIN/POLYMYXIN/BACITRACIN OINTMENT 15 GM TUBE 1 APPLIC TOPICAL (08:24)
--- NOTE | 2020-10-19 09:00 | PM.IMPN ---
Progress Note: A&P Assessment and Plan (1) C. difficile colitis: Code(s): A04.72 - Enterocolitis due to Clostridium difficile, not specified as recurrent Status: Acute Assessment and Plan: C diff culture positive -continue oral vancomycin and add flagyl due to recent fever -white blood cell count now normal and CRP improving -patient continues to have cramping and diarrhea -bannitrol added (2) Sepsis: Code(s): A41.9 - Sepsis, unspecified organism Status: Acute Assessment and Plan: Resolved,supported by leukocytosis, tachycardia, and tachypnea on admission -Pt had a fever overnight. Will obtain UA, abd xray and blood cx. -Flagyl added -CT showing pancolitis and pt is having diarrhea which appears to be the cause -C diff positive -Levaquin and Flagyl discontinued. Continue oral vanc -Blood cultures neg so far (3) Pancolitis: Code(s): K51.00 - Ulcerative (chronic) pancolitis without complications Status: Acute Assessment and Plan: As above (4) Acute respiratory failure with hypoxia: Code(s): J96.01 - Acute respiratory failure with hypoxia Status: Acute Assessment and Plan: Pt continues to require o2 -She is a long time smoker and could have chronic o2 needs which went undiagnosed -CTA shows no pneumonia or PE, COVID less likely -Wean o2 as tolerated (5) Peripheral arterial disease with history of revascularization: Code(s): I73.9 - Peripheral vascular disease, unspecified; Z98.890 - Other specified postprocedural states Status: Acute Assessment and Plan: Continue ASA and rosuvastatin -Continue outpatient follow-up with vascular surgery (6) Dry mouth: Code(s): R68.2 - Dry mouth, unspecified Status: Acute Assessment and Plan: Continue biotene. (7) Hypertension: Code(s): I10 - Essential (primary) hypertension Status: Acute Assessment and Plan: Last bp 106/43 -Continue to hold norvasc since pt continues to run soft and is still having diarrhea (8) Tobacco dependence: Code(s): F17.200 - Nicotine dependence, unspecified, uncomplicated Status: Acute Assessment and Plan: Continue to encourage smoking cessation. I spent 5 minutes counseling the patient on smoking cessation today including adverse cardiovascular outcomes and cancer. She declines the need for a nicotine patch. She is currently smoking 6 cigarettes per day. I explained to her she continues to smoke she may need oxygen for the rest of her life (9) Hyponatremia: Code(s): E87.1 - Hypo-osmolality and hyponatremia Status: Acute Assessment and Plan: 129 today -Worsening daily -Likely due to diarrhea, will restart fluids Additional Plan Subjective Date/time seen: 10/19/20 09:00 Interval history: Pt is a 75-year-old female here for colitis. Patient was seen today and states she wants to go home. She says she has had about 3 or 4 liquid bowel movements a day although the EMR shows around 7. The patient states her abdomen still hurts when she is having these bowel movements and when it is palpated. She has no blood or mucus in the stools. She denies shortness of breath, chest pain, leg swelling, nausea or vomiting. She states her appetite has decreased Exam Narrative: Exam Narrative: General: Well developed well nourished patient in NAD HEENT: normocephalic Neck: supple Neuro: Alert and oriented x4 CV:RRR Resp: Decreased breath sounds, bilaterally. No conversational dyspnea. 1L applied Abd: Soft, non distended. Pain to palpation in all areas. Positive bowel sounds Extremities: No swelling, erythema, or pain to palpation. Ulcer on the dorsal aspect of the right great toe which appears superficial and no infection suspected Skin: Groin incisions which are healing well without dehiscence, discharge or bleeding Objective Data Vital
[2020-10-19] MEDS: ACETAMINOPHEN 325 MG TABLET 650 MG PO ×2 (09:07→15:44)
[2020-10-19] MEDS: CHOLESTYRAMINE LIGHT 4 GM POWD.PACK PO ×2 (10:29→17:08)
[2020-10-19] MEDS: ENOXAPARIN 40 MG/0.4 ML SYRINGE SUB-Q (21:39)
[2020-10-19] MEDS: SODIUM CHLORIDE 0.9% IV 500 ML 999 ML IV CONT (22:08)
[2020-10-20] VITALS (10 sets, daily range): BP systolic 114–128; BP diastolic 37–80; PULSE 61–95; RESP 16–20; TEMP 36.3–37.6; O2SAT 85–94
[2020-10-20 00:21] LABS: Add Urine Microscopic? YES; Appearance Urine Clear (Clear); Bacteria Urine Trace /hpf; Bilirubin Urine Negative (Negative); Blood Urine Negative (Negative); Color Urine Yellow (Yellow); Glucose Urine UA Negative (Negative); Ketones Urine Negative (Negative); Leukocyte Esterase Ur Negative LEU/UL (Negative); Mucus Urine Rare /lpf; Nitrate Urine Negative (Negative); Protein Urine Negative (Negative); RBC Urine 0-2 /hpf (0-2); Specific Grav Ur 1.011 (1.001-1.035); Squamous Epithelial Cell Urine Few /hpf (Few); Urobilinogen Urine Negative mg/dL (<2.0)
[2020-10-20] MEDS: metroNIDAZOLE 500 MG/ISO 100ML 500 MG/100 ML BAG 100 MG IVPB ×5 (00:41→23:21)
[2020-10-20] MEDS: VANCOMYCIN ORAL 125 MG/2.5 ML SYRUP PO ×5 (00:41→23:21)
[2020-10-20 06:01] LABS: Basophils Absolute Auto 0.1 K/mm3 (0.0-0.1); Basophils Percent Auto 0.6 % (0.2-1.2); Eosinophils Absolute Auto 0.1 K/mm3 (0-0.3); Eosinophils Percent Auto 1.3 % (0-4.4); Hematocrit 32.6 % (37.0-47.0); Hemoglobin 10.8 g/dL (12.0-15.0); Immature Granulocyte Absolute 0.06 K/mm3 (0.00-0.031); Immature Granulocyte Percent A 0.8 % (0-0.5); Lymphocytes Absolute Auto 0.95 K/mm3 (0.9-3.2); Mean Corpuscular HGB Conc 33.1 g/dl (32-36); Mean Corpuscular Hemoglobin 31.2 pg (26-34); Mean Corpuscular Volume 94.2 fl (80-100); Mean Platelet Volume 10.4 fl (7.4-10.4); Monocytes Absolute Auto 1.3 K/mm3 (0.1-0.6); Monocytes Percent Auto 16.5 % (2.6-8.5); Neutrophils Absolute Auto 5.5 K/mm3 (1.3-6.7); Neutrophils Percent Auto 68.8 % (45.5-73.1); Platelet Count Result 200 k/mm3 (150-375); Red Blood Count 3.46 M/mm3 (4.2-5.4); Red Cell Distribution Width 14.1 % (11.5-14.5); White Blood Count 7.9 K/mm3 (4.5-10.0)
[2020-10-20 06:16] LABS: Anion Gap 3 mmol/L (8-16); Blood Urea Nitrogen 4 mg/dL (7-17); Calcium 7.5 mg/dL (8.4-10.2); Carbon Dioxide 33 mmol/L (22-30); Chloride 97 mmol/L (98-107); Estimated CRCL calculation 67 ml/min; Estimated Glomerular Filt Rate > 60; Glucose 94 mg/dL (65-105); Potassium 3.4 mmol/L (3.4-5.0); Sodium 133 mmol/L (137-145)
[2020-10-20 06:35] LABS: CRP 17.9 mg/dL (<1.0)
[2020-10-20] MEDS: ASCORBIC ACID 500 MG TABLET 1000 MG PO (08:24)
[2020-10-20] MEDS: POTASSIUM CHLORIDE 20 MEQ TABLET 40 MEQ PO (08:24)
[2020-10-20] MEDS: ASPIRIN 81 MG CHEWABLE TABLET PO (08:24)
[2020-10-20] MEDS: CYANOCOBALAMIN 1,000 MCG TABLET 1000 MCG PO (08:25)
[2020-10-20] MEDS: ROSUVASTATIN 10 MG TABLET PO (08:25)
[2020-10-20] MEDS: SALIVA SUBSTITUTE COMBO RINSE 237 ML BOTTLE 15 ML PO ×3 (08:25→21:12)
[2020-10-20] MEDS: NEOMYCIN/POLYMYXIN/BACITRACIN OINTMENT 15 GM TUBE 1 APPLIC TOPICAL (08:25)
--- NOTE | 2020-10-20 10:55 | PM.IMPN ---
Progress Note: A&P Assessment and Plan (1) C. difficile colitis: Code(s): A04.72 - Enterocolitis due to Clostridium difficile, not specified as recurrent Status: Acute Assessment and Plan: C diff culture positive -continue oral vancomycin and Flagyl added 10/19 since she had increasing fever. Fevers have been better since -white blood cell count now normal and CRP improving -patient continues to have cramping and diarrhea -continue bannitrol -repeat abd xray shows no obstruction or evidence of perf/megacolon -Other etiologies of fever seem less likely: PNA, COVID, UTI less likely -Await GI recommendations (2) Sepsis: Code(s): A41.9 - Sepsis, unspecified organism Status: Acute Assessment and Plan: Resolved,supported by leukocytosis, tachycardia, and tachypnea on admission -Pt had a fever overnight 10/19 and a mild one today as well -UA neg, repeat abd xray neg for acute pathology -Blood cx pending -CTA prior was negative for PNA, she has been social distancing and has no COVID contacts -Flagyl added 10/19 -CT showing pancolitis on admission -C diff positive -Blood cultures NGTD (3) Pancolitis: Code(s): K51.00 - Ulcerative (chronic) pancolitis without complications Status: Acute Assessment and Plan: As above (4) Acute respiratory failure with hypoxia: Code(s): J96.01 - Acute respiratory failure with hypoxia Status: Acute Assessment and Plan: Pt required o2 during this stay but she is off o2 for a trial this morning -She is a long time smoker and could have chronic o2 needs which went undiagnosed -CTA shows no pneumonia or PE, COVID less likely -may need home o2 eval at discharge (5) Peripheral arterial disease with history of revascularization: Code(s): I73.9 - Peripheral vascular disease, unspecified; Z98.890 - Other specified postprocedural states Status: Acute Assessment and Plan: Continue ASA and rosuvastatin -Continue outpatient follow-up with vascular surgery (6) Dry mouth: Code(s): R68.2 - Dry mouth, unspecified Status: Acute Assessment and Plan: Continue biotene. (7) Hypertension: Code(s): I10 - Essential (primary) hypertension Status: Acute Assessment and Plan: Last bp 120/42 -Continue to hold norvasc since pt continues to run soft and is still having diarrhea (8) Tobacco dependence: Code(s): F17.200 - Nicotine dependence, unspecified, uncomplicated Status: Acute Assessment and Plan: Continue to encourage smoking cessation. I spent 5 minutes counseling the patient on smoking cessation today including adverse cardiovascular outcomes and cancer. She declines the need for a nicotine patch. She is currently smoking 6 cigarettes per day. I explained to her she continues to smoke she may need oxygen for the rest of her life (9) Hyponatremia: Code(s): E87.1 - Hypo-osmolality and hyponatremia Status: Acute Assessment and Plan: improved today 133 -Fluids restarted yesterday with improvement in Na but pts appetite is better -Will d/c fluids at this time and monitor. Additional Plan Subjective Date/time seen: 10/20/20 10:55 Interval history: Pt is a 75-year-old female here for cdiff colits. Patient was seen today after occupational therapy and states she is tired and cold. She continues to have abdominal pain that she has had since her surgery. She has had 3-4 liquid bowel movements today already confirmed by OT. She is eating and drinking okay. She has not felt feverish today. She denies shortness of breath, chest pain, leg swelling, nausea or vomiting. She states her appetite has improved. She has been social distance thing and only been to the grocery store twice since her surgery Exam Narrative: Exam Narrative: General: Well developed well nourished patient in [facility] HEENT: nor
--- NOTE | 2020-10-20 17:53 | PC.NURSE ---
Pt unable to be weaned. At 1420 pt was found to be at 86% on room air. 1L resumed at that time. The pts daughter informed me later on a phone call that she had had a home oxygen eval previously and was advised to use oxygen at home. The patient had refused previously.
[2020-10-20] MEDS: ENOXAPARIN 40 MG/0.4 ML SYRINGE SUB-Q (21:13)
[2020-10-21] VITALS (7 sets, daily range): BP systolic 104–138; BP diastolic 44–66; PULSE 58–96; RESP 16–24; TEMP 36.3–37.2; O2SAT 92–93
[2020-10-21] MEDS: VANCOMYCIN ORAL 125 MG/2.5 ML SYRUP PO ×3 (05:50→17:45)
[2020-10-21] MEDS: metroNIDAZOLE 500 MG/ISO 100ML 500 MG/100 ML BAG 100 MG IVPB ×3 (05:50→17:45)
[2020-10-21] MEDS: ALENDRONATE SODIUM 70 MG TABLET PO (05:51)
[2020-10-21 07:16] LABS: Hematocrit 32.7 % (37.0-47.0); Hemoglobin 11.2 g/dL (12.0-15.0); Mean Corpuscular HGB Conc 34.3 g/dl (32-36); Mean Corpuscular Hemoglobin 31.2 pg (26-34); Mean Corpuscular Volume 91.1 fl (80-100); Mean Platelet Volume 10.2 fl (7.4-10.4); Platelet Count Result 230 k/mm3 (150-375); Red Blood Count 3.59 M/mm3 (4.2-5.4); White Blood Count 5.7 K/mm3 (4.5-10.0)
[2020-10-21] MEDS: CYANOCOBALAMIN 1,000 MCG TABLET 1000 MCG PO (08:59)
[2020-10-21] MEDS: ROSUVASTATIN 10 MG TABLET PO (09:00)
[2020-10-21] MEDS: ASPIRIN 81 MG CHEWABLE TABLET PO (09:00)
[2020-10-21] MEDS: ASCORBIC ACID 500 MG TABLET 1000 MG PO (09:00)
[2020-10-21] MEDS: SALIVA SUBSTITUTE COMBO RINSE 237 ML BOTTLE 15 ML PO ×4 (09:00→20:18)
[2020-10-21] MEDS: NEOMYCIN/POLYMYXIN/BACITRACIN OINTMENT 15 GM TUBE 1 APPLIC TOPICAL (09:00)
[2020-10-21] MEDS: CHOLESTYRAMINE LIGHT 4 GM POWD.PACK PO ×2 (10:46→17:45)
--- NOTE | 2020-10-21 10:59 | PM.IMPN ---
Progress Note: A&P Assessment and Plan (1) C. difficile colitis: Code(s): A04.72 - Enterocolitis due to Clostridium difficile, not specified as recurrent Status: Acute Assessment and Plan: C diff culture positive -continue oral vancomycin and Flagyl added 10/19 since she had increasing fever. Fevers have been better since -white blood cell count now normal and CRP improving -patient continues to have cramping and diarrhea. EMR states she had 6 yesterday and already has had 6 today -May be able to discharge in 1-2 days if diarrhea improves -continue bannitrol -repeat abd xray 10/19 shows no obstruction or evidence of perf/megacolon -Other etiologies of fever seem less likely: PNA, COVID, UTI less likely -Await GI recommendations (2) Sepsis: Code(s): A41.9 - Sepsis, unspecified organism Status: Acute Assessment and Plan: Resolved,supported by leukocytosis, tachycardia, and tachypnea on admission -no fevers since 10/19 -UA neg, repeat abd xray neg for acute pathology -Blood cx NGTD -CTA prior was negative for PNA, she has been social distancing and has no COVID contacts -Flagyl added 10/19 -CT showing pancolitis on admission -C diff positive (3) Pancolitis: Code(s): K51.00 - Ulcerative (chronic) pancolitis without complications Status: Acute Assessment and Plan: As above (4) Acute respiratory failure with hypoxia: Code(s): J96.01 - Acute respiratory failure with hypoxia Status: Acute Assessment and Plan: Pt required o2 during this stay -Pt had hypoxia 10/20 and is back on 1L -She is a long time smoker and could have chronic o2 needs which went undiagnosed -CTA shows no pneumonia or PE, COVID less likely -may need home o2 eval at discharge, will likely need o2 at home (5) Peripheral arterial disease with history of revascularization: Code(s): I73.9 - Peripheral vascular disease, unspecified; Z98.890 - Other specified postprocedural states Status: Acute Assessment and Plan: Continue ASA and rosuvastatin -Continue outpatient follow-up with vascular surgery (6) Dry mouth: Code(s): R68.2 - Dry mouth, unspecified Status: Acute Assessment and Plan: Continue biotene. (7) Hypertension: Code(s): I10 - Essential (primary) hypertension Status: Acute Assessment and Plan: Last bp 117/52 -Continue to hold norvasc since pt continues to run soft and is still having diarrhea (8) Tobacco dependence: Code(s): F17.200 - Nicotine dependence, unspecified, uncomplicated Status: Acute Assessment and Plan: Continue to encourage smoking cessation. I spent 5 minutes counseling the patient on smoking cessation today including adverse cardiovascular outcomes and cancer. She declines the need for a nicotine patch. She is currently smoking 6 cigarettes per day. I explained to her she continues to smoke she may need oxygen for the rest of her life (9) Hyponatremia: Code(s): E87.1 - Hypo-osmolality and hyponatremia Status: Acute Assessment and Plan: improved today 132 -Improved with fluids during this stay Additional Plan Subjective Date/time seen: 10/21/20 10:59 Interval history: Pt is a 75-year-old female here for cdiff colits. Pt seen today and is still having multiple BMs and significant stomach cramps during this time. She had incontinence during my exam of liquid diarrhea. At that time she was having indigestion and coughing up phlegm. She does not feel SOB or having CP. She is eating and drinking okay. Exam Narrative: Exam Narrative: General: Well developed well nourished patient in NAD HEENT: normocephalic Neck: supple Neuro: Alert and oriented x4 CV:RRR Resp: Decreased breath sounds, bilaterally. No conversational dyspnea. Slight crackles at the bases Abd: Soft, non distended. Pain to palpation in
[2020-10-21 11:00] LABS: Alanine Aminotransferase 13 U/L (4-35); Albumin Level 2.3 g/dL (3.5-5.1); Alkaline Phosphatase 111 U/L (38-126); Anion Gap 4 mmol/L (8-16); Aspartate Amino Transferase 22 U/L (14-36); Bilirubin,Total 0.5 mg/dL (0.2-1.3); Blood Urea Nitrogen 3 mg/dL (7-17); CRP 12.9 mg/dL (<1.0); Calcium 7.7 mg/dL (8.4-10.2); Carbon Dioxide 32 mmol/L (22-30); Chloride 96 mmol/L (98-107); Estimated CRCL calculation 82 ml/min; Estimated Glomerular Filt Rate > 60; Glucose 93 mg/dL (65-105); Magnesium 1.9 mg/dL (1.6-2.3); Potassium 3.8 mmol/L (3.4-5.0); Sodium 132 mmol/L (137-145)
--- NOTE | 2020-10-21 11:23 | PCPTNOTE ---
Patient refused treatment this session due to not feeling well enough. Patient refused to do any exercises even just bed exercises this date due to not feeling well.
[2020-10-21] MEDS: CALCIUM CARBONATE (TUMS) 500 MG (200 MG ELEMENTAL) PO (11:24)
[2020-10-21] MEDS: PANTOPRAZOLE SODIUM IV 40 MG VIAL IV PUSH (11:24)
[2020-10-21 12:09] LABS: Lactate Dehydrogenase < 200 U/L (313-618)
[2020-10-21] MEDS: ENOXAPARIN 40 MG/0.4 ML SYRINGE SUB-Q (20:18)
[2020-10-22] VITALS (7 sets, daily range): BP systolic 109–127; BP diastolic 45–58; PULSE 82–92; RESP 16–20; TEMP 36.4–37.2; O2SAT 90–94
[2020-10-22] MEDS: metroNIDAZOLE 500 MG/ISO 100ML 500 MG/100 ML BAG 100 MG IVPB ×4 (00:07→18:11)
[2020-10-22] MEDS: VANCOMYCIN ORAL 125 MG/2.5 ML SYRUP PO ×4 (00:07→18:12)
[2020-10-22] MEDS: ACETAMINOPHEN 325 MG TABLET 650 MG PO ×2 (00:52→11:50)
[2020-10-22 06:07] LABS: Basophils Percent Auto 0.7 % (0.2-1.2); Eosinophils Absolute Auto 0.1 K/mm3 (0-0.3); Eosinophils Percent Auto 2.7 % (0-4.4); Hematocrit 34.4 % (37.0-47.0); Hemoglobin 11.4 g/dL (12.0-15.0); Immature Granulocyte Absolute 0.03 K/mm3 (0.00-0.031); Immature Granulocyte Percent A 0.7 % (0-0.5); Lymphocytes Absolute Auto 0.85 K/mm3 (0.9-3.2); Lymphocytes Percent Auto 19.3 % (18.3-44.2); Mean Corpuscular HGB Conc 33.1 g/dl (32-36); Mean Corpuscular Hemoglobin 30.9 pg (26-34); Mean Corpuscular Volume 93.2 fl (80-100); Mean Platelet Volume 9.8 fl (7.4-10.4); Monocytes Absolute Auto 0.8 K/mm3 (0.1-0.6); Monocytes Percent Auto 18.4 % (2.6-8.5); Neutrophils Absolute Auto 2.6 K/mm3 (1.3-6.7); Neutrophils Percent Auto 58.2 % (45.5-73.1); Platelet Count Result 266 k/mm3 (150-375); Red Blood Count 3.69 M/mm3 (4.2-5.4); White Blood Count 4.4 K/mm3 (4.5-10.0)
[2020-10-22 06:43] LABS: Anion Gap -1 mmol/L (8-16); Blood Urea Nitrogen 5 mg/dL (7-17); CRP 7.6 mg/dL (<1.0); Calcium 7.7 mg/dL (8.4-10.2); Carbon Dioxide 35 mmol/L (22-30); Chloride 97 mmol/L (98-107); Estimated CRCL calculation 82 ml/min; Estimated Glomerular Filt Rate > 60; Glucose 100 mg/dL (65-105); Potassium 3.6 mmol/L (3.4-5.0); Sodium 131 mmol/L (137-145)
[2020-10-22] MEDS: CYANOCOBALAMIN 1,000 MCG TABLET 1000 MCG PO (09:08)
[2020-10-22] MEDS: ASCORBIC ACID 500 MG TABLET 1000 MG PO (09:08)
[2020-10-22] MEDS: CHOLESTYRAMINE LIGHT 4 GM POWD.PACK PO ×2 (09:08→18:11)
[2020-10-22] MEDS: SALIVA SUBSTITUTE COMBO RINSE 237 ML BOTTLE 15 ML PO ×3 (09:08→21:55)
[2020-10-22] MEDS: ROSUVASTATIN 10 MG TABLET PO (09:08)
[2020-10-22] MEDS: NEOMYCIN/POLYMYXIN/BACITRACIN OINTMENT 15 GM TUBE 1 APPLIC TOPICAL (09:08)
[2020-10-22] MEDS: ASPIRIN 81 MG CHEWABLE TABLET PO (09:08)
--- NOTE | 2020-10-22 10:58 | PM.IMPN ---
Progress Note: A&P Assessment and Plan (1) C. difficile colitis: Code(s): A04.72 - Enterocolitis due to Clostridium difficile, not specified as recurrent Status: Acute Assessment and Plan: C diff culture positive -patient is finally improving little today. If she continues to improve, may discharge in 1-2 days -continue oral vancomycin and Flagyl added 10/19 since she had increasing fever. Fevers have been better since -white blood cell count now normal and CRP improving -She had 11BMs yesterday but today is better -continue bannitrol, RN spoke to her about the importance of this -repeat abd xray 10/19 shows no obstruction or evidence of perf/megacolon. no other clinical evidence of worsening -Other etiologies of fever seem less likely: PNA, COVID, UTI less likely -Await GI recommendations (2) Sepsis: Code(s): A41.9 - Sepsis, unspecified organism Status: Acute Assessment and Plan: Resolved,supported by leukocytosis, tachycardia, and tachypnea on admission -no fevers since 10/19 -UA neg, repeat abd xray neg for acute pathology -Blood cx NGTD -CTA prior was negative for PNA, she has been social distancing and has no COVID contacts -Flagyl added 10/19 -CT showing pancolitis on admission -C diff positive (3) Pancolitis: Code(s): K51.00 - Ulcerative (chronic) pancolitis without complications Status: Acute Assessment and Plan: As above (4) Acute respiratory failure with hypoxia: Code(s): J96.01 - Acute respiratory failure with hypoxia Status: Acute Assessment and Plan: Pt required o2 during this stay -Pt had hypoxia 10/20 and is back on 1L -She is a long time smoker and could have chronic o2 needs which went undiagnosed -CTA shows no pneumonia or PE, COVID less likely -Will order home o2 eval. she will likely need o2 at home (5) Peripheral arterial disease with history of revascularization: Code(s): I73.9 - Peripheral vascular disease, unspecified; Z98.890 - Other specified postprocedural states Status: Acute Assessment and Plan: Continue ASA and rosuvastatin -Continue outpatient follow-up with vascular surgery (6) Dry mouth: Code(s): R68.2 - Dry mouth, unspecified Status: Acute Assessment and Plan: Continue biotene. (7) Hypertension: Code(s): I10 - Essential (primary) hypertension Status: Acute Assessment and Plan: Last bp 127/51 -Continue to hold norvasc since pt continues to run soft and is still having diarrhea (8) Tobacco dependence: Code(s): F17.200 - Nicotine dependence, unspecified, uncomplicated Status: Acute Assessment and Plan: Continue to encourage smoking cessation. I spent 5 minutes counseling the patient on smoking cessation today including adverse cardiovascular outcomes and cancer. She declines the need for a nicotine patch. She is currently smoking 6 cigarettes per day. I explained to her she continues to smoke she may need oxygen for the rest of her life (9) Hyponatremia: Code(s): E87.1 - Hypo-osmolality and hyponatremia Status: Acute Assessment and Plan: 131 today -Improved with fluids during this stay Additional Plan Subjective Date/time seen: 10/22/20 10:58 Interval history: Pt is a 75-year-old female here for cdiff colits. Pt seen today in feels a bit better when compared to yesterday. She said yesterday was awful with about 11 liquid bowel movements. Today she thinks it is somewhat solid. It was brought to my attention that she has not been taking the banitrol. She does not feel SOB or having CP. She is eating and drinking okay. Exam Narrative: Exam Narrative: General: Well developed well nourished patient in NAD HEENT: normocephalic Neck: supple Neuro: Alert and oriented x4 CV:RRR Resp: Decreased breath sounds, bilaterally. No conversational dyspnea.
[2020-10-22] MEDS: ENOXAPARIN 40 MG/0.4 ML SYRINGE SUB-Q (21:55)
[2020-10-23] VITALS (7 sets, daily range): BP systolic 105–139; BP diastolic 48–63; PULSE 80–90; RESP 16–18; TEMP 36.2–36.5; O2SAT 90–97
[2020-10-23] MEDS: metroNIDAZOLE 500 MG/ISO 100ML 500 MG/100 ML BAG 100 MG IVPB ×4 (00:41→18:23)
[2020-10-23] MEDS: VANCOMYCIN ORAL 125 MG/2.5 ML SYRUP PO ×2 (00:41→05:53)
[2020-10-23 05:48] LABS: Hematocrit 35.2 % (37.0-47.0); Hemoglobin 11.6 g/dL (12.0-15.0); Mean Corpuscular Hemoglobin 30.9 pg (26-34); Mean Corpuscular Volume 93.6 fl (80-100); Mean Platelet Volume 9.8 fl (7.4-10.4); Platelet Count Result 310 k/mm3 (150-375); Red Blood Count 3.76 M/mm3 (4.2-5.4); Red Cell Distribution Width 14.1 % (11.5-14.5); White Blood Count 5.7 K/mm3 (4.5-10.0)
[2020-10-23 05:56] LABS: Anion Gap 2 mmol/L (8-16); Blood Urea Nitrogen 3 mg/dL (7-17); CRP 3.9 mg/dL (<1.0); Calcium 7.5 mg/dL (8.4-10.2); Carbon Dioxide 33 mmol/L (22-30); Chloride 97 mmol/L (98-107); Estimated CRCL calculation 82 ml/min; Estimated Glomerular Filt Rate > 60; Glucose 115 mg/dL (65-105); Magnesium 1.9 mg/dL (1.6-2.3); Potassium 3.7 mmol/L (3.4-5.0); Sodium 132 mmol/L (137-145)
[2020-10-23] MEDS: ASCORBIC ACID 500 MG TABLET 1000 MG PO (08:55)
[2020-10-23] MEDS: CYANOCOBALAMIN 1,000 MCG TABLET 1000 MCG PO (08:55)
[2020-10-23] MEDS: ASPIRIN 81 MG CHEWABLE TABLET PO (08:55)
[2020-10-23] MEDS: ROSUVASTATIN 10 MG TABLET PO (08:55)
[2020-10-23] MEDS: SALIVA SUBSTITUTE COMBO RINSE 237 ML BOTTLE 15 ML PO ×4 (08:56→20:31)
[2020-10-23] MEDS: NEOMYCIN/POLYMYXIN/BACITRACIN OINTMENT 15 GM TUBE 1 APPLIC TOPICAL (08:56)
--- NOTE | 2020-10-23 10:07 | WPDGIPROGNO ---
Progress Note: A&P Assessment and Plan (1) C. difficile colitis: Code(s): A04.72 - Enterocolitis due to Clostridium difficile, not specified as recurrent Status: Acute Assessment and Plan: Patient has colitis by CT scan. C difficile toxin positive by stool. Patient now on oral vancomycin with IV Flagyl supplementation. Plan is to continue with Questran. May try Lomotil to firm up her stools somewhat. Try to stop any extra unnecessary medications. Increase diet and activity if at all possible. (2) Pancolitis: Code(s): K51.00 - Ulcerative (chronic) pancolitis without complications Status: Acute Subjective Date/time seen: 10/23/20 10:07 Patient continues to have rather significant frequent bowel movements. No bleeding noted. Stools are described as loose somewhat watery. Patient denies abdominal pain. Complains of some rectal discomfort. Review of Systems Review of Systems: All systems reviewed & are unremarkable except as noted in HPI and below Exam Narrative: Exam Narrative: Physical exam patient is alert comfortable at rest. She is anicteric. Afebrile. Apparently had a low-grade temperature several days ago. Abdominal exam reveals bowel sounds to be present soft nontender with no organomegaly. Rectal exam mildly irritated. Objective Data Vital Signs Vital Signs: Vital Signs - 24 hr 10/22/20 14:00 10/22/20 18:00 10/22/20 22:18 Temperature 97.5 F L 97.8 F 97.5 F L Pulse Rate 85 85 92 Respiratory Rate 16 16 20 Blood Pressure 109/58 L 119/45 L 125/53 L Pulse Oximetry 93 93 94 10/23/20 02:00 10/23/20 06:16 10/23/20 08:00 Temperature 97.7 F 97.6 F 97.2 F L Pulse Rate 90 89 84 Respiratory Rate 16 16 18 Blood Pressure 105/62 137/57 L 139/63 Pulse Oximetry 92 90 94 10/23/20 09:05 Temperature Pulse Rate Respiratory Rate Blood Pressure Pulse Oximetry 93 Intake/Output Intake/Output: Intake & Output 10/20/20 10/21/20 10/22/20 10/23/20 23:59 23:59 23:59 23:59 Intake Total 2420 1320 1420 980 Output Total 700 1250 500 300 Balance 1720 70 920 680 Meds/Results Medications: Active Medications Generic Name Dose Route Start Last Admin Trade Name Freq PRN Reason Stop Dose Admin Acetaminophen 650 mg 10/19/20 06:52 10/22/20 11:50 Acetaminophen 325 Mg Tablet PO 650 mg Q4H PRN Administration Headache or fever Albuterol 2.5 mg 10/16/20 11:06 Albuterol Sulfate Neb 2.5 Mg/0.5 Ml Inh INHALATION Q6HRT PRN Shortness Of Breath Alendronate Sodium 70 mg 10/21/20 06:30 10/21/20 05:51 Alendronate Sodium 70 Mg Tablet PO 70 mg Sa@0630 AMAURY Administration Ascorbic Acid 1,000 mg 10/16/20 09:00 10/23/20 08:55 Ascorbic Acid 500 Mg Tablet PO 1,000 mg DAILY AMAURY Administration Aspirin 81 mg 10/16/20 08:00 10/23/20 08:55 Aspirin 81 Mg Chewable Tablet PO 81 mg DAILY@0800 AMAURY Administration Calcium Carbonate 200 mg 10/21/20 10:28 10/21/20 11:24 Calcium Carbonate (Tums) 500 Mg (200 Mg Elemental) PO 200 mg Q6H PRN Administration Indigestion Cholestyramine Resin 4 gm 10/18/20 18:00 10/22/20 18:11 Cholestyramine Light 4 Gm Powd.Pack PO 4 gm BID@1000,1800 AMAURY Administration Cyanocobalamin 1,000 mcg 10/16/20 09:00 10/23/20 08:55 Cyanocobalamin 1,000 Mcg Tablet PO 1,000 mcg DAILY AMAURY Administration Enoxaparin Sodium 40 mg 10/16/20 21:00 10/22/20 21:55 Enoxaparin 40 Mg/0.4 Ml Syringe SUB-Q 40 mg HS AMAURY Administration Metronidazole 500 mg in 100 mls @ 100 mls/hr 10/19/20 06:55 10/23/20 06:53 Flagyl 500 Mg/Iso Soln 100 Ml IVPB Infused Q6HR AMAURY Infusion Miconazole Nitrate 1 applic 10/17/20 09:00 10/23/20 08:55 Miconazole 2% Antifungal Ointment 56 Gm TOPICAL 1 applic Q12HR AMAURY Administration Neomycin/Polymyxin/Bacitracin 1 applic 10/16/20 09:00 10/23/20 08:56 Neomycin/Polymyxin/Bacitracin Ointment 15 Gm Tube TOPICAL 1 applic QAM AMAURY Adm
[2020-10-23] MEDS: ACETAMINOPHEN 325 MG TABLET 650 MG PO ×2 (11:02→16:26)
[2020-10-23] MEDS: CHOLESTYRAMINE LIGHT 4 GM POWD.PACK PO (11:03)
--- NOTE | 2020-10-23 11:36 | PCOTNOTE ---
Attempted therapy session with patient, but patient refused, stating her stomach was hurting her too much and stated that her nurse was aware.
--- NOTE | 2020-10-23 12:37 | PM.IMPN ---
Progress Note: A&P Assessment and Plan (1) C. difficile colitis: Code(s): A04.72 - Enterocolitis due to Clostridium difficile, not specified as recurrent Status: Acute Assessment and Plan: C diff culture positive -patient had been improving but today her pain is worse than it has been her entire stay -x-ray was done overnight which did not show any abnormalities. Because of her worsening pain, I am going to order CT of the abdomen pelvis -I have spoken with Dr. Jamil who is going to see her later today -I am hoping she can discharge soon, her stools are now on the softer side rather than liquid but she had 10 bowel movements yesterday -continue oral vancomycin and Flagyl added 10/19 since she had increasing fever. Fevers have been better since -white blood cell count now normal and CRP improving -continue bannitrol (2) Sepsis: Code(s): A41.9 - Sepsis, unspecified organism Status: Acute Assessment and Plan: Resolved,supported by leukocytosis, tachycardia, and tachypnea on admission 12/26 to [facility] [place] -no fevers since 10/19 -UA neg, repeat abd xray neg for acute pathology -Blood cx NGTD -CTA prior was negative for PNA, she has been social distancing and has no COVID contacts -Flagyl added 10/19 -CT showing pancolitis on admission, repeating one today (3) Pancolitis: Code(s): K51.00 - Ulcerative (chronic) pancolitis without complications Status: Acute Assessment and Plan: As above (4) Acute respiratory failure with hypoxia: Code(s): J96.01 - Acute respiratory failure with hypoxia Status: Acute Assessment and Plan: Pt required o2 during this stay -Pt had hypoxia 10/20 and is back on 1L -She is a long time smoker and could have chronic o2 needs which went undiagnosed -CTA shows no pneumonia or PE, COVID less likely -home o2 eval pending, will likely need it at discharge -Pt was told she must quit smoking (5) Peripheral arterial disease with history of revascularization: Code(s): I73.9 - Peripheral vascular disease, unspecified; Z98.890 - Other specified postprocedural states Status: Acute Assessment and Plan: Continue ASA and rosuvastatin -Continue outpatient follow-up with vascular surgery. wounds clean and dry without signs of infection (6) Dry mouth: Code(s): R68.2 - Dry mouth, unspecified Status: Acute Assessment and Plan: Continue biotene. (7) Hypertension: Code(s): I10 - Essential (primary) hypertension Status: Acute Assessment and Plan: Last bp 121/48 -Continue to hold norvasc since pt continues to run soft and is still having diarrhea (8) Tobacco dependence: Code(s): F17.200 - Nicotine dependence, unspecified, uncomplicated Status: Acute Assessment and Plan: Continue to encourage smoking cessation. I spent 5 minutes counseling the patient on smoking cessation today including adverse cardiovascular outcomes and cancer. She declines the need for a nicotine patch. She is currently smoking 6 cigarettes per day. I explained to her she continues to smoke she may need oxygen for the rest of her life (9) Hyponatremia: Code(s): E87.1 - Hypo-osmolality and hyponatremia Status: Acute Assessment and Plan: 132 today -Improved with fluids during this stay Additional Plan Subjective Date/time seen: 10/23/20 12:37 Interval history: Pt is a 75-year-old female here for cdiff colits. Patient was seen today and was in significant pain. She says that this is the most pain she has been in since this all started. It used to be only when she had bowel movements but now it is pretty continuous. She describes it as a crampy pain diffusely through her abdomen. She says it is worse when she has bowel movements. She thinks her bowel movements have become soft instead of straight liquid and have improved. She i
--- NOTE | 2020-10-23 14:40 | PCNWS ---
Weekly nutritional screen. Patient is tolerating current diet order of low fiber diet with adequate intake. Nursing reports some stomach cramping today. Diarrhea noted-Banatrol Plus TID is being provided to help with stool bulking. No weight loss reported. No nutritional needs at this time.
[2020-10-23] MEDS: FUROSEMIDE INJ 40 MG/4 ML VIAL 20 MG IV PUSH (16:26)
[2020-10-23] MEDS: ENOXAPARIN 40 MG/0.4 ML SYRINGE SUB-Q (20:31)
[2020-10-24] VITALS (11 sets, daily range): BP systolic 112–140; BP diastolic 50–65; PULSE 71–96; RESP 16–22; TEMP 36.2–36.6; O2SAT 91–99
[2020-10-24] MEDS: metroNIDAZOLE 500 MG/ISO 100ML 500 MG/100 ML BAG 100 MG IVPB ×4 (00:08→17:11)
[2020-10-24 05:49] LABS: Basophils Percent Auto 0.5 % (0.2-1.2); Eosinophils Absolute Auto 0.1 K/mm3 (0-0.3); Eosinophils Percent Auto 1.7 % (0-4.4); Hematocrit 36.2 % (37.0-47.0); Hemoglobin 11.8 g/dL (12.0-15.0); Immature Granulocyte Absolute 0.05 K/mm3 (0.00-0.031); Immature Granulocyte Percent A 0.8 % (0-0.5); Lymphocytes Absolute Auto 1.01 K/mm3 (0.9-3.2); Lymphocytes Percent Auto 15.5 % (18.3-44.2); Mean Corpuscular HGB Conc 32.6 g/dl (32-36); Mean Corpuscular Hemoglobin 30.8 pg (26-34); Mean Corpuscular Volume 94.5 fl (80-100); Mean Platelet Volume 9.5 fl (7.4-10.4); Monocytes Absolute Auto 0.7 K/mm3 (0.1-0.6); Monocytes Percent Auto 10.9 % (2.6-8.5); Neutrophils Absolute Auto 4.6 K/mm3 (1.3-6.7); Neutrophils Percent Auto 70.6 % (45.5-73.1); Platelet Count Result 359 k/mm3 (150-375); Red Blood Count 3.83 M/mm3 (4.2-5.4); Red Cell Distribution Width 14.1 % (11.5-14.5); White Blood Count 6.5 K/mm3 (4.5-10.0)
[2020-10-24 06:37] LABS: Alanine Aminotransferase 11 U/L (4-35); Albumin Level 2.3 g/dL (3.5-5.1); Alkaline Phosphatase 89 U/L (38-126); Anion Gap 0 mmol/L (8-16); Aspartate Amino Transferase 28 U/L (14-36); Bilirubin,Total 0.3 mg/dL (0.2-1.3); Blood Urea Nitrogen 4 mg/dL (7-17); Calcium 7.6 mg/dL (8.4-10.2); Carbon Dioxide 36 mmol/L (22-30); Chloride 97 mmol/L (98-107); Estimated CRCL calculation 82 ml/min; Estimated Glomerular Filt Rate > 60; Glucose 101 mg/dL (65-105); Potassium 3.6 mmol/L (3.4-5.0); Sodium 133 mmol/L (137-145)
[2020-10-24 07:47] LABS: CRP 2.7 mg/dL (<1.0)
[2020-10-24] MEDS: ASPIRIN 81 MG CHEWABLE TABLET PO (08:20)
[2020-10-24] MEDS: ASCORBIC ACID 500 MG TABLET 1000 MG PO (08:20)
[2020-10-24] MEDS: ROSUVASTATIN 10 MG TABLET PO (08:20)
[2020-10-24] MEDS: CYANOCOBALAMIN 1,000 MCG TABLET 1000 MCG PO (08:20)
[2020-10-24] MEDS: SALIVA SUBSTITUTE COMBO RINSE 237 ML BOTTLE 15 ML PO ×4 (08:21→21:51)
[2020-10-24] MEDS: NEOMYCIN/POLYMYXIN/BACITRACIN OINTMENT 15 GM TUBE 1 APPLIC TOPICAL (08:22)
--- NOTE | 2020-10-24 09:04 | WPDGIPROGNO ---
Progress Note: A&P Assessment and Plan (1) C. difficile colitis: Code(s): A04.72 - Enterocolitis due to Clostridium difficile, not specified as recurrent Status: Acute Assessment and Plan: Patient with C difficile colitis. CT scan suggest pancolitis. Plan is continue oral vancomycin. Will add Lomotil so that she is more functional. Try to increase activity. Consider discharge when stools more controlled, no abdominal pain, and tolerating diet. (2) Pancolitis: Code(s): K51.00 - Ulcerative (chronic) pancolitis without complications Status: Acute Subjective Date/time seen: 10/24/20 09:04 Patient reports that abdominal pain is less today. She really also reports diarrhea has lessened she has more substance to her stools. She is anxious to go home. Currently tolerating diet. Exam Narrative: Exam Narrative: Physical exam reveals patient to be alert comfortable at rest. Vital signs are stable. HEENT exam unremarkable. She is anicteric. Lungs are clear. Heart without murmur. Abdomen bowel sounds present soft no localized tenderness today. Objective Data Vital Signs Vital Signs: Vital Signs - 24 hr 10/23/20 09:05 10/23/20 11:59 10/23/20 16:00 Temperature 97.2 F L 97.2 F L Pulse Rate 84 80 Respiratory Rate 18 18 Blood Pressure 121/48 L 129/57 L Pulse Oximetry 93 95 94 10/23/20 20:00 10/24/20 00:00 10/24/20 04:00 Temperature 97.4 F L 97.4 F L 97.4 F L Pulse Rate 81 83 85 Respiratory Rate 18 20 22 H Blood Pressure 135/54 L 132/50 L 112/62 Pulse Oximetry 97 99 95 10/24/20 08:00 Temperature 97.2 F L Pulse Rate 86 Respiratory Rate 18 Blood Pressure 114/65 Pulse Oximetry 94 Intake/Output Intake/Output: Intake & Output 10/21/20 10/22/20 10/23/20 10/24/20 23:59 23:59 23:59 23:59 Intake Total 1320 1420 2400 540 Output Total 1250 500 800 500 Balance 70 920 1600 40 Meds/Results Medications: Active Medications Generic Name Dose Route Start Last Admin Trade Name Freq PRN Reason Stop Dose Admin Acetaminophen 650 mg 10/19/20 06:52 10/23/20 16:26 Acetaminophen 325 Mg Tablet PO 650 mg Q4H PRN Administration Headache or fever Albuterol 2.5 mg 10/16/20 11:06 Albuterol Sulfate Neb 2.5 Mg/0.5 Ml Inh INHALATION Q6HRT PRN Shortness Of Breath Alendronate Sodium 70 mg 10/21/20 06:30 10/21/20 05:51 Alendronate Sodium 70 Mg Tablet PO 70 mg Sa@0630 AMAURY Administration Ascorbic Acid 1,000 mg 10/16/20 09:00 10/24/20 08:20 Ascorbic Acid 500 Mg Tablet PO 1,000 mg DAILY AMAURY Administration Aspirin 81 mg 10/16/20 08:00 10/24/20 08:20 Aspirin 81 Mg Chewable Tablet PO 81 mg DAILY@0800 [facility] Administration Calcium Carbonate 200 mg 10/21/20 10:28 10/21/20 11:24 Calcium Carbonate (Tums) 500 Mg (200 Mg Elemental) PO 200 mg Q6H PRN Administration Indigestion Cholestyramine Resin 4 gm 10/18/20 18:00 10/23/20 16:14 Cholestyramine Light 4 Gm Powd.Pack PO Not Given BID@1000,1800 [facility] Cyanocobalamin 1,000 mcg 10/16/20 09:00 10/24/20 08:20 Cyanocobalamin 1,000 Mcg Tablet PO 1,000 mcg DAILY [facility] Administration Diphenoxylate HCl/Atropine 1 tablet 10/23/20 10:10 Diphenoxylate/Atropine (*Crx) 2.5 Mg Tablet PO TID PRN Diarrhea Enoxaparin Sodium 40 mg 10/16/20 21:00 10/23/20 20:31 Enoxaparin 40 Mg/0.4 Ml Syringe SUB-Q 40 mg HS [facility] Administration Guaifenesin 1,200 mg 10/24/20 09:00 Guaifenesin 12 Hr 600 Mg Tabcr PO Q12HR [facility] Metronidazole 500 mg in 100 mls @ 100 mls/hr 10/19/20 06:55 10/24/20 07:15 Flagyl 500 Mg/Iso Soln 100 Ml IVPB Infused Q6HR [facility] Infusion Miconazole Nitrate 1 applic 10/17/20 09:00 10/24/20 08:21 Miconazole 2% Antifungal Ointment 56 Gm TOPICAL 1 applic Q12HR [facility] Administration Neomycin/Polymyxin/Bacitracin 1 applic 10/16/20 09:00 10/24/20 08:22 Neomycin/Polymyxin/Bacitracin Ointment 15 Gm Tube TOPICAL 1
[2020-10-24] MEDS: guaiFENesin 12 HR 600 MG TABCR 1200 MG PO ×2 (09:50→21:48)
[2020-10-24] MEDS: ACETAMINOPHEN 325 MG TABLET 650 MG PO (09:50)
[2020-10-24] MEDS: CHOLESTYRAMINE LIGHT 4 GM POWD.PACK PO ×2 (09:52→17:12)
--- NOTE | 2020-10-24 10:23 | HOMEO2EVAL ---
Home Oxygen Evaluation RC: Home Oxygen (O2) Evaluation Start: 10/24/20 09:00 Freq: ONCE Status: Active Protocol: RPE Activity Type Activity Date Activity User E-Sign Co-Sign Detail Recorded Client Recorded Date Recorded By Document 10/24/20 09:40 STANISLAV [email or web address] 10/24/20 10:23 STANISLAV Document 10/24/20 09:45 STANISLAV [id number] 10/24/20 10:23 STANISLAV Document 10/24/20 09:55 STANISLAV [id number] 10/24/20 10:23 STANISLAV 10/24/20 10/24/20 10/24/20 09:40 09:45 09:55 Home O2 Evaluation Test Phase Resting Exercise Resting Oxygen Delivery Room Air Room Air Room Air Pulse Oximetry (90-100 %) 93 91 93 Pulse Rate (60-100 beats/min) 72 96 78 Activity Tolerance Poor Home Oxygen Evaluation Comments PT STOOD UP AT THE SIDE OF BED WITH FULL ASSITANCE, VERY WEAK, UNABLE TO AMBULATE Treatment Charges O2 Evaluation
--- NOTE | 2020-10-24 10:24 | PCRCNOTE ---
HOME O2 EVAL DONE, PT VERY WEAK, UNABLE TO AMBULATE, TOOK FULL ASSISTANCE MOVE INTO A STANDING POSITION AT THE SIDE OF BED. NO HOME O2 NEEDED AT THIS TIME.
--- NOTE | 2020-10-24 11:26 | PM.IMPN ---
Progress Note: A&P Assessment and Plan (1) C. difficile colitis: Code(s): A04.72 - Enterocolitis due to Clostridium difficile, not specified as recurrent Status: Acute Assessment and Plan: C. diff culture was positive. She had pain yesterday and CT abd/pelvis was repeated and demonstrates pancolitis. Dr. Jamil with GI is following and input is appreciated. Continue PO vancomycin (initiated 10/17) and flagyl (initiated 10/19 given persistent fever). She is improving overall. Bowels are more formed and frequency has decreased. WBC has normalized and continues to improve. Continue bannitrol. (2) Sepsis: Code(s): A41.9 - Sepsis, unspecified organism Status: Acute Assessment and Plan: Resolved. Supported by leukocytosis, tachycardia, and tachypnea on admission secondary to C. diff colitis. She is on PO vancomycin and IV flagyl was added 10/19 given persistent fevers. She has been afebrile since 10/19. Final blood cultures demonstrate no growth. (3) Pancolitis: Code(s): K51.00 - Ulcerative (chronic) pancolitis without complications Status: Acute Assessment and Plan: As above. (4) Acute respiratory failure with hypoxia: Code(s): J96.01 - Acute respiratory failure with hypoxia Status: Acute Assessment and Plan: Pt required supplemental oxygen during this stay. She remains on 1 liter per nasal cannula. She is a long time smoker and could have chronic oxygen needs which went undiagnosed. Smoking cessation has been encouraged. She will benefit from outpatient pulmonary function testing and follow-up with pulmonology. Albuterol is available PRN. CTA chest was negative for pulmonary embolism. She has evidence of mucous plugging and I suspect underlying COPD. Add mucinex and continue chest physiotherapy. (5) Peripheral arterial disease with history of revascularization: Code(s): I73.9 - Peripheral vascular disease, unspecified; Z98.890 - Other specified postprocedural states Status: Acute Assessment and Plan: Continue ASA and rosuvastatin. Continue outpatient follow-up with vascular surgery. Wounds are clean and dry without signs of infection. (6) Dry mouth: Code(s): R68.2 - Dry mouth, unspecified Status: Acute Assessment and Plan: Continue biotene. (7) Hypertension: Code(s): I10 - Essential (primary) hypertension Status: Acute Assessment and Plan: Blood pressures were reviewed and are reasonably controlled with some soft readings. Amlodipine is held given soft BP readings and persistent diarrhea. (8) Tobacco dependence: Code(s): F17.200 - Nicotine dependence, unspecified, uncomplicated Status: Acute Assessment and Plan: Continue to encourage smoking cessation. Adverse cardiovascular outcomes and cancer associated with tobacco use were discussed. She declines the need for a nicotine patch. She is currently smoking 6 cigarettes per day. I explained to her she continues to smoke she may need oxygen for the rest of her life (9) Hyponatremia: Code(s): E87.1 - Hypo-osmolality and hyponatremia Status: Acute Assessment and Plan: Appears chronic. Sodium is 133 today. Likely pre-renal as hyponatremia improved with fluids during this stay. Subjective Date/time seen: 10/24/20 11:26 Mrs. Vuong is a 75 y.o. female with PMH significant for hyperlipidemia, osteoporosis, hypertension, and peripheral arterial disease s/p femoral to femoral bypass with vein graft 09/04/20 who is seen in follow-up for pancolitis secondary to C. diff. She had abdominal pain yesterday which has resolved today. She feels much better overall. She notes several bowel movements today but bowel frequency has slowed significantly. Bowels are more formed with no further loose/watery stools. She notes abdominal cramping associated only with bowel movements now. She
[2020-10-24] MEDS: ENOXAPARIN 40 MG/0.4 ML SYRINGE SUB-Q (21:48)
[2020-10-25] VITALS (8 sets, daily range): BP systolic 104–122; BP diastolic 21–77; PULSE 82–104; RESP 20; TEMP 36.2–36.9; O2SAT 93–94
[2020-10-25] MEDS: metroNIDAZOLE 500 MG/ISO 100ML 500 MG/100 ML BAG 100 MG IVPB ×2 (01:01→06:04)
[2020-10-25 05:49] LABS: Basophils Absolute Auto 0.1 K/mm3 (0.0-0.1); Basophils Percent Auto 0.9 % (0.2-1.2); Eosinophils Absolute Auto 0.1 K/mm3 (0-0.3); Eosinophils Percent Auto 1.5 % (0-4.4); Hemoglobin 10.7 g/dL (12.0-15.0); Immature Granulocyte Absolute 0.04 K/mm3 (0.00-0.031); Immature Granulocyte Percent A 0.7 % (0-0.5); Lymphocytes Absolute Auto 1.09 K/mm3 (0.9-3.2); Lymphocytes Percent Auto 20.4 % (18.3-44.2); Mean Corpuscular HGB Conc 33.4 g/dl (32-36); Mean Corpuscular Hemoglobin 30.7 pg (26-34); Mean Corpuscular Volume 91.7 fl (80-100); Mean Platelet Volume 9.5 fl (7.4-10.4); Monocytes Absolute Auto 0.7 K/mm3 (0.1-0.6); Monocytes Percent Auto 12.5 % (2.6-8.5); Neutrophils Absolute Auto 3.4 K/mm3 (1.3-6.7); Platelet Count Result 376 k/mm3 (150-375); Red Blood Count 3.49 M/mm3 (4.2-5.4); Red Cell Distribution Width 14.2 % (11.5-14.5); White Blood Count 5.4 K/mm3 (4.5-10.0)
[2020-10-25 06:09] LABS: Anion Gap 1 mmol/L (8-16); Blood Urea Nitrogen 4 mg/dL (7-17); Calcium 7.4 mg/dL (8.4-10.2); Carbon Dioxide 33 mmol/L (22-30); Chloride 98 mmol/L (98-107); Estimated CRCL calculation 82 ml/min; Estimated Glomerular Filt Rate > 60; Glucose 99 mg/dL (65-105); Potassium 3.7 mmol/L (3.4-5.0); Sodium 132 mmol/L (137-145)
[2020-10-25 08:04] LABS: Atypical Lymphocytes Present; Platelet Estimate Adequate (Adequate)
--- NOTE | 2020-10-25 08:44 | WPDGIPROGNO ---
Progress Note: A&P Assessment and Plan (1) C. difficile colitis: Code(s): A04.72 - Enterocolitis due to Clostridium difficile, not specified as recurrent Status: Acute Assessment and Plan: C difficile colitis improving clinically. Diarrhea has lessened. Plan to discontinue IV Flagyl. Continue vancomycin for 10-14 day course. Questran supplementation may help with her diarrhea. Decreased Lomotil in make p.r.n. only. Hopefully discharge if diet tolerated. (2) Diarrhea: Qualifiers: Diarrhea type: unspecified type Qualified Code(s): R19.7 - Diarrhea, unspecified Code(s): R19.7 - Diarrhea, unspecified Status: Acute Subjective Date/time seen: 10/25/20 08:44 Patient alert more comfortable this morning. She states her bowel habits have substance. She reports much less frequent stools. She denies abdominal pain. Review of Systems Review of Systems: All systems reviewed & are unremarkable except as noted in HPI and below Exam Narrative: Exam Narrative: Physical exam reveals patient be alert and comfortable at rest. She is anicteric. Afebrile. Vital signs stable. Lungs are clear. Abdomen bowel sounds present soft nontender with no organomegaly. Objective Data Vital Signs Vital Signs: Vital Signs - 24 hr 10/24/20 09:40 10/24/20 09:45 10/24/20 09:55 Temperature Pulse Rate 72 96 78 Respiratory Rate Blood Pressure Pulse Oximetry 93 91 93 10/24/20 11:30 10/24/20 12:00 10/24/20 16:00 Temperature 97.3 F L 97.8 F Pulse Rate 94 89 Respiratory Rate 16 18 Blood Pressure 128/61 120/54 L Pulse Oximetry 93 96 94 10/24/20 20:00 10/25/20 02:10 10/25/20 04:00 Temperature 97.5 F L 97.5 F L 97.1 F L Pulse Rate 71 100 89 Respiratory Rate 20 20 20 Blood Pressure 140/56 L 118/68 120/21 L Pulse Oximetry 92 94 94 10/25/20 05:27 Temperature 97.1 F L Pulse Rate 89 Respiratory Rate 20 Blood Pressure 120/21 L Pulse Oximetry 94 Intake/Output Intake/Output: Intake & Output 10/22/20 10/23/20 10/24/20 10/25/20 23:59 23:59 23:59 23:59 Intake Total 1420 2400 1400 740 Output Total 500 800 675 350 Balance 920 1600 725 390 Meds/Results Medications: Active Medications Generic Name Dose Route Start Last Admin Trade Name Freq PRN Reason Stop Dose Admin Acetaminophen 650 mg 10/19/20 06:52 10/24/20 09:50 Acetaminophen 325 Mg Tablet PO 650 mg Q4H PRN Administration Headache or fever Albuterol 2.5 mg 10/16/20 11:06 Albuterol Sulfate Neb 2.5 Mg/0.5 Ml Inh INHALATION Q6HRT PRN Shortness Of Breath Alendronate Sodium 70 mg 10/21/20 06:30 10/21/20 05:51 Alendronate Sodium 70 Mg Tablet PO 70 mg Sa@0630 AMAURY Administration Ascorbic Acid 1,000 mg 10/16/20 09:00 10/24/20 08:20 Ascorbic Acid 500 Mg Tablet PO 1,000 mg DAILY AMAURY Administration Aspirin 81 mg 10/16/20 08:00 10/24/20 08:20 Aspirin 81 Mg Chewable Tablet PO 81 mg DAILY@0800 AMAURY Administration Calcium Carbonate 200 mg 10/21/20 10:28 10/21/20 11:24 Calcium Carbonate (Tums) 500 Mg (200 Mg Elemental) PO 200 mg Q6H PRN Administration Indigestion Cholestyramine Resin 4 gm 10/18/20 18:00 10/24/20 17:12 Cholestyramine Light 4 Gm Powd.Pack PO 4 gm BID@1000,1800 AMAURY Administration Cyanocobalamin 1,000 mcg 10/16/20 09:00 10/24/20 08:20 Cyanocobalamin 1,000 Mcg Tablet PO 1,000 mcg DAILY AMAURY Administration Diphenoxylate HCl/Atropine 1 tablet 10/23/20 10:10 Diphenoxylate/Atropine (*Crx) 2.5 Mg Tablet PO TID PRN Diarrhea Enoxaparin Sodium 40 mg 10/16/20 21:00 10/24/20 21:48 Enoxaparin 40 Mg/0.4 Ml Syringe SUB-Q 40 mg HS AMAURY Administration Guaifenesin 1,200 mg 10/24/20 09:00 10/24/20 21:48 Guaifenesin 12 Hr 600 Mg Tabcr PO 1,200 mg Q12HR AMAURY Administration Metronidazole 500 mg in 100 mls @ 100 mls/hr 10/19/20 06:55 10/25/20 07:04 Flagyl 500 Mg/Iso Soln 100 Ml IVPB
[2020-10-25] MEDS: ASPIRIN 81 MG CHEWABLE TABLET PO (09:13)
[2020-10-25] MEDS: ASCORBIC ACID 500 MG TABLET 1000 MG PO (09:13)
[2020-10-25] MEDS: ROSUVASTATIN 10 MG TABLET PO (09:13)
[2020-10-25] MEDS: CHOLESTYRAMINE LIGHT 4 GM POWD.PACK PO (09:13)
[2020-10-25] MEDS: guaiFENesin 12 HR 600 MG TABCR 1200 MG PO (09:14)
[2020-10-25] MEDS: NEOMYCIN/POLYMYXIN/BACITRACIN OINTMENT 15 GM TUBE 1 APPLIC TOPICAL (09:14)
[2020-10-25] MEDS: SALIVA SUBSTITUTE COMBO RINSE 237 ML BOTTLE 15 ML PO ×2 (09:14→12:21)
[2020-10-25] MEDS: CYANOCOBALAMIN 1,000 MCG TABLET 1000 MCG PO (09:14)
--- NOTE | 2020-10-25 13:20 | PM.DS ---
DS: Admitting Diagnosis Admitting Diagnosis Admitting Diagnosis: Pancolitis, Diarrhea DS: Discharge Diagnosis Discharge Diagnosis (1) C. difficile colitis: Code(s): A04.72 - Enterocolitis due to Clostridium difficile, not specified as recurrent Status: Acute Assessment and Plan: Discharge Summary (Date of service 10/25/20): Mrs. Vuong is a 75 y.o. female with PMH significant for hyperlipidemia, osteoporosis, hypertension, and peripheral arterial disease s/p femoral to femoral bypass with vein graft 09/04/20 who presented to the emergency department 10/15/20 for the evaluation of watery diarrhea and abdominal cramping for [address] abd/pelvis demonstrated pancolitis. C. diff culture was positive. GI was consulted. She was treated with PO vancomycin and IV flagyl was added given fevers despite PO vancomycin. She improved significantly and was afebrile after 10/19/20.. Her stool frequency decreased and stools were more formed. Her abdominal pain subsided and she felt much better overall. She did require oxygen during her hospital stay but she was weaned to room air and did not qualify for home oxygen at discharge. Chest CTA demonstrated no PE but did show mucous plugging and it is likely she has underlying COPD. She was given albuterol PRN and advised to follow-up with her PCP and possibly pulmonology with formal PFTs outpatient. She felt much better and requested to go home. GI recommended she continue PO vancomycin for 14 more days. She was discharged in hemodynamically stable condition on the afternoon of 10/25/20. (2) Sepsis: Code(s): A41.9 - Sepsis, unspecified organism Status: Acute Assessment and Plan: Resolved. Supported by leukocytosis, tachycardia, and tachypnea on admission secondary to C. diff colitis. She was treated with PO vancomycin and IV flagyl. She was afebrile since 10/19. Final blood cultures demonstrated no growth. (3) Pancolitis: Code(s): K51.00 - Ulcerative (chronic) pancolitis without complications Status: Acute Assessment and Plan: As above. (4) Acute respiratory failure with hypoxia: Code(s): J96.01 - Acute respiratory failure with hypoxia Status: Resolved Assessment and Plan: Pt required supplemental oxygen during this stay but was weaned to room air and did not require oxygen on home oxygen evaluation by respiratory therapy. She is a long time smoker and likely has underlying COPD. Smoking cessation was encouraged. She will benefit from outpatient pulmonary function testing and follow-up with pulmonology. CTA chest was negative for pulmonary embolism but did show mucous plugging. She improved significantly with mucinex and chest physiotherapy. She was given albuterol at discharge and encouraged to follow-up with her PCP and establish care with pulmonology. (5) Peripheral arterial disease with history of revascularization: Code(s): I73.9 - Peripheral vascular disease, unspecified; Z98.890 - Other specified postprocedural states Status: Chronic Assessment and Plan: ASA and rosuvastatin were continued. She was encouraged to maintain outpatient follow-up with vascular surgery. Wounds were clean, dry, and healing without signs of infection. (6) Dry mouth: Code(s): R68.2 - Dry mouth, unspecified Status: Chronic Assessment and Plan: Biotene was given. (7) Hypertension: Code(s): I10 - Essential (primary) hypertension Status: Chronic Assessment and Plan: Blood pressures were reviewed and are reasonably controlled. Amlodipine was discontinued as BP was well-controlled without it. (8) Tobacco dependence: Code(s): F17.200 - Nicotine dependence, unspecified, uncomplicated Status: Chronic Assessment and Plan: Smoking cessation was encouraged. Adverse cardiovascular outcomes and cancer associated with tobacco use were discussed. (9) H
--- NOTE | 2020-10-25 13:59 | PCRCNOTE ---
HOME O2 EVAL REPEATED TODAY PER REQUEST OF PA, NO REQUIREMENTS.
--- NOTE | 2020-10-25 14:10 | PC.NURSE ---
Per Dr. Loulou silver for patient to get discharged today and no follow up unless the patient continues to have problems.
== END 2020-10-25 15:26 | disposition home health service (06) | DRG 871 ==
LOC: ANHED 13:56 → ANH2MED 15:54
PROVIDERS: Internal Medicine; Physician Assistant; Admitting Provider Family Medicine; Emergency Provider Emergency Medicine; PCP Family Medicine; Visit Provider Physician Assistant
DX: A41.9 Sepsis, unspecified organism; J96.01 Acute respiratory failure with hypoxia; A04.72 Enterocolitis due to Clostridium difficile, not specified as recurrent; K51.00 Ulcerative (chronic) pancolitis without complications; E87.1 Hypo-osmolality and hyponatremia; I73.9 Peripheral vascular disease, unspecified; J44.9 Chronic obstructive pulmonary disease, unspecified; R68.2 Dry mouth, unspecified; F17.210 Nicotine dependence, cigarettes, uncomplicated; I10 Essential (primary) hypertension; E78.5 Hyperlipidemia, unspecified; M81.0 Age-related osteoporosis without current pathological fracture; Z23 Encounter for immunization; Z79.82 Long term (current) use of aspirin; Z79.899 Other long term (current) drug therapy; Z88.0 Allergy status to penicillin; Z88.8 Allergy status to other drugs, medicaments and biological substances; Z98.890 Other specified postprocedural states
CPT/HCPCS: 36415; 71045; 71046; 71275; 74018; 74019; 74176; 74177; 76775; 80048; 80053; 80076; 81001; 82728; 83605; 83615; 83690; 83735; 85025; 85027; 86140; 87015; 87040; 87045; 87046; 87269; 87272; 87324; 87427; 89055; 90471; 90653; 94618; 94667; 94668; 96361; 96374; 97110; 97116; 97161; 97165; 97530; 97535; 99285; A9270; C9113; G0008; J0131; J1650; J1940; J1956; J2550; J3480; J7030; Q9967

== ENCOUNTER 2020-10-30 13:14 | Outpatient (NON) | payer OTHER, SELFPAY ==
[2020-10-30 13:45] LABS: Hematocrit 36.2 % (37.0-47.0); Hemoglobin 11.7 g/dL (12.0-15.0); Mean Corpuscular HGB Conc 32.3 g/dl (32-36); Mean Corpuscular Volume 95.8 fl (80-100); Mean Platelet Volume 9.4 fl (7.4-10.4); Platelet Count Result 508 k/mm3 (150-375); Red Blood Count 3.78 M/mm3 (4.2-5.4); Red Cell Distribution Width 15.4 % (11.5-14.5); White Blood Count 6.4 K/mm3 (4.5-10.0)
[2020-10-30 14:04] LABS: Alanine Aminotransferase 28 U/L (4-35); Alkaline Phosphatase 94 U/L (38-126); Aspartate Amino Transferase 54 U/L (14-36); Bilirubin,Total 0.3 mg/dL (0.2-1.3); Blood Urea Nitrogen 8 mg/dL (7-17); Calcium 8.6 mg/dL (8.4-10.2); Carbon Dioxide > 40 mmol/L (22-30); Chloride 97 mmol/L (98-107); Estimated Glomerular Filt Rate > 60; Glucose 91 mg/dL (65-105); Potassium 3.5 mmol/L (3.4-5.0); Sodium 137 mmol/L (137-145)
== END 2020-10-30 13:15 ==
PROVIDERS: PCP Family Medicine; Visit Provider Family Medicine
DX: K51.00 Ulcerative (chronic) pancolitis without complications (principal); J96.01 Acute respiratory failure with hypoxia; A04.72 Enterocolitis due to Clostridium difficile, not specified as recurrent
CPT/HCPCS: 80053; 85027

== ENCOUNTER → 2021-07-13 10:04 | Outpatient (CLI) | payer OTHER, SELFPAY ==
--- NOTE | ~2021-07-13 | MM_ITS ---
EXAMINATION: MM screening [facility] BI w maureen HISTORY: Screening mammogram TECHNIQUE: Craniocaudal and mediolateral oblique 3-D tomosynthesis images were obtained and synthetic 2-D images were generated. CAD analysis was submitted and interpreted. COMPARISON: 01/15/2018, 07/07/2017 BREAST PARENCHYMAL COMPOSITION: There are scattered areas of fibroglandular density. FINDINGS: There is no evidence of suspicious mass, calcification, or architectural distortion to sugg est malignancy in either breast. There has been no suspicious interval change. IMPRESSION: 1. No mammographic evidence of malignancy. 2. Recommend routine screening mammography in one year. BI-RADS Category 1: Negative Reviewed, dictated and finalized at location A.
== END ==
PROVIDERS: PCP Physician Assistant; Visit Provider Physician Assistant
DX: Z12.31 Encounter for screening mammogram for malignant neoplasm of breast (principal)
CPT/HCPCS: 77063; 77067

== ENCOUNTER → 2022-07-15 09:58 | Outpatient (CLI) | payer OTHER, SELFPAY ==
--- NOTE | ~2022-07-15 | DEXA_ITS ---
Bone Density Report Name: ARCHIE SWANSON Age: 77 Sex: Female Ethnicity: White Date of : 1945 Indication: postmenopausal osteoporosis; monitoring treatment; height loss; prior fracture; Referring Provider: CORIE, DAVIS Martinez Study: Bone densitometry was performed. Exam Date: July 15, 2022 Accession number: [id number] Bone Density: Region BMD T-score Z-score Classification AP Spine (L1-L4) 0.915 -1.2 1.3 Osteopenia Femoral Neck (Right) 0.464 -3.5 -1.3 Osteoporosis Total Hip (Right) 0.459 -4.0 -2.1 Osteoporosis World Health Organization criteria for BMD impression classify patients as: Normal (T-score at or above -1.0), Osteopenia (T-score between -1.0 and -2.5), or Osteoporosis (T-score at or below -2.5). 10-year Fracture Risk: FRAX not reported because: Some T-score for Spine Total or Hip Total or Femoral Neck at or below -2.5 Treated for osteoporosis Previous Exams: Region Exam Age BMD T-score BMD Change BMD Change Date g/cm2 vs Baseline vs Previous AP Spine(L1-L4) 07/15/2022 77 0.915 -1.2 0.144* 0.042* 09/14/2014 69 0.873 -1.6 0.102* 0.102* 09/30/2011 66 0.771 -2.5 Total Hip(Right) 07/15/2022 77 0.459 -4.0 -0.069* -0.106* 09/14/2014 69 0.566 -3.1 0.037* 0.037* 09/30/2011 66 0.529 -3.4 *Denotes significance at 95% confidence level, LSC for AP Spine = 0.022 g/cm2, LSC for Total Hip = 0.027 g/cm2 Clinical Information Provided by Patient: Has had a low trauma fracture Smokes Is being treated for osteoporosis Has used the following medications: Fosamax (i.e. alendronate), Vitamin D, Calcium Patient maximum height was 64 Menopause Age: 51 Drinks caffeinated beverages Onset of menses at age 13 Number of children 4 Impression: The patient has established osteoporosis, based on the Right Total Hip T-score and the existence of a prior fracture. The patient has risk factors, including: smoking, previous fracture. The BMD for the Total Hip(Right) decreased, changing by -0.106 since the last DXA exam. Discussion: SIGNIFICANT BONE LOSS OBSERVED. Adherence to therapy (including calcium and vitamin D intake) should be assessed. If compliance is not a factor, review management and exclusion of secondary causes of bone loss. It is important to ask patients whether they are taking their medications and to encourage continued and appropriate compliance with their osteoporosis therapies to reduce fracture risk. It is also important to review their r
== END ==
PROVIDERS: PCP Physician Assistant; Visit Provider Physician Assistant
DX: M81.0 Age-related osteoporosis without current pathological fracture (principal); M85.88 Other specified disorders of bone density and structure, other site
CPT/HCPCS: 77080

== ENCOUNTER 2023-07-01 11:42 | Emergency (ER) | payer OTHER, SELFPAY ==
--- NOTE | ~2023-07-01 | CT_ITS ---
EXAMINATION: CT abdomen pelvis w con DATE: 07/01/2023 14:18 INDICATION: Nausea and vomiting. TECHNIQUE: Computed tomography (CT) of the abdomen and pelvis was performed with 100 mL Omnipaque 350 intravenous contrast. Automated exposure control and iterative reconstruction technique were employe d. The dose-length product was 161.52 mGy-cm. COMPARISON: CT abdomen and pelvis 10/23/2020 FINDINGS: The visualized portions of the lung bases demonstrate mild emphysema. No pleural effusion. The heart size is normal. There are coronary artery calcifications. No pericardial effusion. The live r, gallbladder, spleen, pancreas, and adrenal glands are normal. There is an 11 mm hemorrhagic cyst i n right kidney. There is cortical thinning of left kidney. There are no dilated loops of bowel. The a ppendix is normal. There are no pathologically enlarged lymph nodes. There is no ascites. There is ca lcified atherosclerosis of the aorta and many of the other arteries. There is total occlusion of the [place] external iliac arteries. There is a patent femorofemoral bypass graft. There is a patent right ax-fem bypass graft with fluid around the graft. There is moderate stenosis of celiac axis. There is total occlusion of proximal superior mesenteric artery. The ovarian veins are enlarged, consistent w ith pelvic venous insufficiency. There is instrumentation of proximal left femur. There is chronic he ight loss of all included vertebral bodies. IMPRESSION: 1. Arterial occlusive disease. 2. Pelvic venous insufficiency. Reviewed, dictated and finalized at location A.
[2023-07-01 11:45] VITALS: BP 123/53; PULSE 96; RESP 18; TEMP 36.7; O2SAT 98
[2023-07-01 12:04] LABS: Basophils Percent Auto 0.6 % (0.2-1.2); Eosinophils Absolute Auto 0.2 K/mm3 (0-0.3); Eosinophils Percent Auto 3.1 % (0-4.4); Hematocrit 37.2 % (37.0-47.0); Hemoglobin 11.8 g/dL (12.0-15.0); Immature Granulocyte Absolute 0.01 K/mm3 (0.00-0.031); Immature Granulocyte Percent A 0.1 % (0-0.5); Lymphocytes Absolute Auto 1.51 K/mm3 (0.9-3.2); Lymphocytes Percent Auto 21.2 % (18.3-44.2); Mean Corpuscular HGB Conc 31.7 g/dl (32-36); Mean Corpuscular Hemoglobin 29.4 pg (26-34); Mean Corpuscular Volume 92.8 fl (80-100); Monocytes Absolute Auto 0.8 K/mm3 (0.1-0.6); Monocytes Percent Auto 10.7 % (2.6-8.5); Neutrophils Absolute Auto 4.6 K/mm3 (1.3-6.7); Neutrophils Percent Auto 64.3 % (45.5-73.1); Platelet Count Result 188 k/mm3 (150-375); Red Blood Count 4.01 M/mm3 (4.2-5.4); Red Cell Distribution Width 14.6 % (11.5-14.5); White Blood Count 7.1 K/mm3 (4.5-10.0)
[2023-07-01 12:17] LABS: Alanine Aminotransferase 15 U/L (6-35); Albumin Level 4.5 g/dL (3.5-5.1); Alkaline Phosphatase 76 U/L (38-126); Anion Gap 9 mmol/L (8-16); Aspartate Amino Transferase 25 U/L (14-36); Bilirubin,Total 0.6 mg/dL (0.2-1.3); Blood Urea Nitrogen 13 mg/dL (7-17); Calcium 9.3 mg/dL (8.4-10.2); Carbon Dioxide 28 mmol/L (22-30); Chloride 99 mmol/L (98-107); Estimated CRCL calculation 50 ml/min; Estimated Glomerular Filt Rate > 60; Glucose 102 mg/dL (65-110); Lipase 56 U/L (23-300); Potassium 3.6 mmol/L (3.4-5.0); Sodium 136 mmol/L (137-145)
[2023-07-01 13:26] VITALS: BP 155/60; PULSE 94
[2023-07-01 13:27] VITALS: BP 150/63; PULSE 91
[2023-07-01 13:28] VITALS: BP 134/64; PULSE 92
[2023-07-01 14:02] LABS: Appearance Urine Cloudy (Clear); Bacteria Urine 2+ /hpf; Bilirubin Urine Negative (Negative); Blood Urine Negative (Negative); Color Urine Dark Yellow (Yellow); Glucose Urine UA Negative (Negative); Hyaline Casts Urine Present /lpf; Ketones Urine 1+ mg/dL (Negative); Leukocyte Esterase Ur 2+ LEU/UL (Negative); Need Manual Microscopic Reviewed; Nitrate Urine Negative (Negative); Non Pathogenic Casts >20; Protein Urine 2+ mg/dL (Negative); RBC Urine 0-2 /hpf (0-2); Specific Grav Ur 1.024 (1.001-1.035); Squamous Epithelial Cell Urine Moderate /hpf (Few); WBC Urine 21-50 /hpf
[2023-07-01 14:03] LABS: Add Urine Microscopic? YES
--- NOTE | 2023-07-01 14:51 | PC.NURSE ---
Pt daughter, Neelima, called for update. Verbal consent obtained from pt. She can be reached at [phone].
--- NOTE | 2023-07-01 15:11 | ED.GENADULT ---
HPI - General Adult General Chief complaint: Nausea/Vomiting/Diarrhea Stated complaint: belching Time Seen by Provider: 07/01/23 12:26 History of Present Illness HPI narrative: Gregoria Vuong is a 78 y/o female who presents with reports of continued hiccups after eating and sometime regurgitation after eating for the past 2-3 weeks. She called her PCP and was changed from Nexium to Pantoprazole. Today is the third day of the new medication but she reports she is still having hiccups after eating. Denies abdominal pain/ last BM was today and normal/ no vomiting. Denies fever/chills. Related Data Home Medications Medication Instructions Recorded Confirmed Aleve 220 mg PO BID 10/15/20 03/04/23 Aspirin Childrens 81 mg PO DAILY 10/15/20 03/04/23 Glucosamine 2,000 mg PO BID 10/15/20 03/04/23 estefania-mag-vit [id number] See Rx Instructions .Route .COMPLEX 10/15/20 03/04/23 oral suspension cetirizine 10 mg PO DAILY 10/15/20 03/04/23 cyanocobalamin (vitamin B-12) 1,000 mcg PO DAILY 10/15/20 03/04/23 1,000 mcg tablet (Vitamin B-12) guaifenesin 400 mg PO DAILY 10/15/20 03/04/23 Allergies Allergy/AdvReac Type Severity Reaction Status Date / Time diphenhydramine Allergy Intermediate SEVERE Verified 08/20/22 09:39 ITCHING codeine Allergy Unknown Confusion Verified 08/20/22 09:39 Penicillins Allergy Unknown Confusion Verified 08/20/22 09:39 Review of Systems Review of Systems: CONSTITUTIONAL: Denies fever, chills, or sweats. EYES: Denies visual changes, redness, or discharge. ENT: Denies rhinorrhea, congestion, sore throat, or otalgia. CARDIOVASCULAR: Denies chest pain, palpitations, or edema. RESPIRATORY: Denies cough or dyspnea. GASTROINTESTINAL: Denies abdominal pain, nausea, vomiting, or diarrhea. GENITOURINARY: Denies dysuria or hematuria. SKIN: Denies rash or itching. MUSCULOSKELETAL: Denies back pain, joint pain, or myalgia. NEUROLOGIC: Denies headache, numbness, dizziness, or weakness. PSYCHIATRIC: Denies anxiety or depression. [facility] Past Medical History Medical History Acute respiratory failure with hypoxia C. difficile colitis H/O compression fracture of spine Hyperlipidemia Hypertension Osteoporosis Pancolitis Peripheral arterial disease with history of revascularization Pleural effusion Surgical History Surgical History H/O carpal tunnel repair Right Hand History of open reduction and internal fixation (ORIF) procedure Left Tibia History of vascular surgery Right leg bypass surgery 09/12 Family History Family History Mother Heart attack Other Family history of cardiovascular disease Social History Social History Years smoked: 55 Smoking status: Current every day smoker Tobacco type: cigarettes Additional smoking assessment comments: smoked 1/2 ppd for over 50 years Alcohol intake: former Alcohol use details: Does not currently drink Substance use: never Substance use type: does not use Living arrangements: alone Additional living arrangements comments: who resides in her own home with her cat Occupation/Education: retired Gender identity (if verbalized by the patient): Female Spiritual care concerns: No Exam Narrative: GENERAL: Well-appearing, well-nourished, and in no acute distress. HEAD: Normocephalic, atraumatic. EYES: PERRLA and EOMI. ENT: Nares clear, no rhinorrhea or epistaxis. Mucous membranes moist. Oropharynx without tonsillar hypertrophy exudate or other lesions. NECK: Supple. No adenopathy or masses. No carotid bruits or JVD CHEST: Clear to auscultation. No respiratory distress. No wheezes rales or rhonchi HEART: Regular rate and rhythm. No murmur heard. Normal peripheral pulses. ABDOMEN: Soft, nontender, nondisten
[2023-07-01 15:16] VITALS: BP 156/57; PULSE 94; RESP 18; O2SAT 96
[2023-07-01] MEDS: BELLADONNA ALK/PHENOB ELIX 10 ML, MAG HYDROX/ALUMINUM HYD/SIMETH 30 ML, LIDOCAINE HCL 2... PO (16:15)
--- NOTE | 2023-07-01 16:30 | PC.NURSE ---
Neelima, pt daughter, called for transportation after discharge.
== END 2023-07-01 17:15 | disposition home or self-care (01) ==
PROVIDERS: Emergency Medicine; Emergency Provider Nurse Practitioner Family; PCP Family Medicine Adolescent Medicine
DX: K21.9 Gastro-esophageal reflux disease without esophagitis (principal); N30.00 Acute cystitis without hematuria; I73.9 Peripheral vascular disease, unspecified; I10 Essential (primary) hypertension; E78.5 Hyperlipidemia, unspecified; M81.0 Age-related osteoporosis without current pathological fracture; F17.210 Nicotine dependence, cigarettes, uncomplicated; Z79.82 Long term (current) use of aspirin; I87.2 Venous insufficiency (chronic) (peripheral); I70.0 Atherosclerosis of aorta; I74.5 Embolism and thrombosis of iliac artery; K55.069 Acute infarction of intestine, part and extent unspecified
CPT/HCPCS: 36415; 74177; 80053; 81001; 83690; 85025; 87086; 99284; A9270; Q9967

== ENCOUNTER 2023-07-10 15:05 | Emergency (ER) | payer OTHER, SELFPAY ==
[2023-07-10 15:06] VITALS: BP 142/63; RESP 16; TEMP 36.8; O2SAT 94
--- NOTE | 2023-07-10 16:42 | ECG_ITS ---
Measurements Intervals [place] Rate: 90 P: 76 TX: 183 QRS: 9 QRSD: 153 T: 112 QT: 403 QTc: 495 Interpretive Statements SINUS RHYTHM LEFT BUNDLE BRANCH BLOCK [120+ ms QRS DURATION, 80+ ms Q/S IN V1/V2, 85+ ms R IN I/aVL/V5/V6] ABNORMAL ECG NO PREVIOUS ECG AVAILABLE FOR COMPARISON Electronically Signed On 07-11-2023 15:50:18 CDT by Mina Juarez M.D.
[2023-07-10 17:12] VITALS: BP 150/64; BP 154/57; BP 161/56; PULSE 101; PULSE 93; PULSE 95
[2023-07-10 17:12] LABS: Basophils Percent Auto 0.3 % (0.2-1.2); Eosinophils Absolute Auto 0.1 K/mm3 (0-0.3); Eosinophils Percent Auto 0.9 % (0-4.4); Hematocrit 35.2 % (37.0-47.0); Immature Granulocyte Absolute 0.03 K/mm3 (0.00-0.031); Immature Granulocyte Percent A 0.3 % (0-0.5); Lymphocytes Absolute Auto 0.95 K/mm3 (0.9-3.2); Mean Corpuscular HGB Conc 31.3 g/dl (32-36); Mean Corpuscular Hemoglobin 28.6 pg (26-34); Mean Corpuscular Volume 91.4 fl (80-100); Mean Platelet Volume 11.1 fl (7.4-10.4); Monocytes Absolute Auto 0.9 K/mm3 (0.1-0.6); Monocytes Percent Auto 10.2 % (2.6-8.5); Neutrophils Absolute Auto 6.6 K/mm3 (1.3-6.7); Neutrophils Percent Auto 77.3 % (45.5-73.1); Platelet Count Result 203 k/mm3 (150-375); Red Blood Count 3.85 M/mm3 (4.2-5.4); Red Cell Distribution Width 14.6 % (11.5-14.5); White Blood Count 8.6 K/mm3 (4.5-10.0)
[2023-07-10 17:22] LABS: Alanine Aminotransferase 16 U/L (6-35); Albumin Level 4.3 g/dL (3.5-5.1); Alkaline Phosphatase 69 U/L (38-126); Anion Gap 6 mmol/L (8-16); Aspartate Amino Transferase 27 U/L (14-36); Bilirubin,Total 0.4 mg/dL (0.2-1.3); Blood Urea Nitrogen 12 mg/dL (7-17); Carbon Dioxide 32 mmol/L (22-30); Chloride 99 mmol/L (98-107); Estimated Glomerular Filt Rate > 60; Glucose 116 mg/dL (65-110); Potassium 3.3 mmol/L (3.4-5.0); Sodium 137 mmol/L (137-145)
--- NOTE | 2023-07-10 17:22 | ED.GENADULT ---
HPI - General Adult General Chief complaint: Unspecified Stated complaint: NEW MED REACTION Time Seen by Provider: 07/10/23 16:19 Source: patient and RN notes reviewed Mode of arrival: ambulatory Limitations: no limitations History of Present Illness HPI narrative: This is a 78 year old female with history of chronic pain and osteoporosis who presents for evaluation of medication reaction. Patient states last week she was evaluated in ER for increased belching. She was evaluated by her PCP for symptoms and nausea. She was started on Reglan 10 mg with meals and bedtime 2 days ago. She reports anxiety, restlessness and difficulty sleeping since starting the medication. She report today she dizzy after taking the medication. She denies chest pain or shortness of breath. She reports her nausea has resolved. She states her symptoms have resolved now. Related Data Home Medications Medication Instructions Recorded Confirmed Aleve 220 mg PO BID 10/15/20 07/08/23 Aspirin Childrens 81 mg PO DAILY 10/15/20 07/08/23 Glucosamine 2,000 mg PO BID 10/15/20 07/08/23 cetirizine 10 mg PO DAILY 10/15/20 07/08/23 cyanocobalamin (vitamin B-12) 1,000 mcg PO DAILY 10/15/20 07/08/23 1,000 mcg tablet (Vitamin B-12) guaifenesin 400 mg PO DAILY 10/15/20 07/08/23 acetaminophen 500 mg tablet 500 mg PO Q6H PRN 07/08/23 07/08/23 (Acetaminophen Pain Relief) ascorbic acid (vitamin C) 1,000 mg 1 g PO DAILY 07/08/23 07/08/23 tablet calcium carbonate 168 mg calcium 168 mg PO TID 07/08/23 07/08/23 (420 mg) chewable tablet (Antacid Extra-Strength) calcium carbonate 600 mg calcium 600 mg PO DAILY 07/08/23 07/08/23 (1,500 mg) tablet (Calcium) ibuprofen 200 mg tablet (IBU-200) 200 mg PO Q6H PRN 07/08/23 07/08/23 magnesium 250 mg tablet 250 mg PO DAILY 07/08/23 07/08/23 Allergies Allergy/AdvReac Type Severity Reaction Status Date / Time diphenhydramine Allergy Intermediate SEVERE Verified 07/10/23 16:53 ITCHING codeine Allergy Unknown Confusion Verified 08/17/23 16:53 Penicillins Allergy Unknown Confusion Verified 07/10/23 16:53 Review of Systems Review of Systems: All systems reviewed & are unremarkable except as noted in HPI and below PMFSH Past Medical History Medical History Acute respiratory failure with hypoxia C. difficile colitis H/O compression fracture of spine Hyperlipidemia Hypertension Osteoporosis Pancolitis Peripheral arterial disease with history of revascularization Pleural effusion Surgical History Surgical History H/O carpal tunnel repair Right Hand History of open reduction and internal fixation (ORIF) procedure Left [place] History of vascular surgery Right leg bypass surgery 09/12 Family History Family History Mother Heart attack Other Family history of cardiovascular disease Social History Social History (Updated 07/08/23 @ 10:58 by Jean Spring MA) Years smoked: 55 Smoking status: Current every day smoker Tobacco type: cigarettes Additional smoking assessment comments: smoked 1/2 ppd for over 50 years Alcohol intake: former Alcohol use details: Does not currently drink Substance use: never Substance use type: does not use Lack of Food: Never True Difficulty Paying Gas/Electric Bills: No Difficulty Paying for Meds: No Living arrangements: alone Additional living arrangements comments: who resides in her own home with her cat Occupation/Education: retired Gender identity (if verbalized by the patient): Female Spiritual care concerns: No Exam Narrative: GENERAL: Well-appearing, well-nourished, and in no acute distress. HEAD: Normocephalic, atraumatic EYES: PERRLA and EOMI, conjunctiva clear without discharge NOSE: Nares clear, no rhinorrhea or epistaxis THROAT:Mucous membranes mo
== END 2023-07-10 18:03 | disposition home or self-care (01) ==
PROVIDERS: Emergency Provider General Practice; PCP Family Medicine Adolescent Medicine
DX: T45.0X5A Adverse effect of antiallergic and antiemetic drugs, initial encounter (principal); E78.5 Hyperlipidemia, unspecified; I10 Essential (primary) hypertension; F17.210 Nicotine dependence, cigarettes, uncomplicated
CPT/HCPCS: 36415; 80053; 85025; 93005; 99283

== ENCOUNTER 2023-07-17 09:20 | Emergency (ER) | payer OTHER, SELFPAY ==
[2023-07-17 09:33] VITALS: BP 143/61; PULSE 77; RESP 18; TEMP 36.6; O2SAT 99
[2023-07-17 09:58] LABS: Basophils Percent Auto 0.3 % (0.2-1.2); Eosinophils Absolute Auto 0.1 K/mm3 (0-0.3); Eosinophils Percent Auto 0.9 % (0-4.4); Hematocrit 34.9 % (37.0-47.0); Hemoglobin 11.1 g/dL (12.0-15.0); Immature Granulocyte Absolute 0.02 K/mm3 (0.00-0.031); Immature Granulocyte Percent A 0.2 % (0-0.5); Lymphocytes Absolute Auto 1.17 K/mm3 (0.9-3.2); Lymphocytes Percent Auto 13.2 % (18.3-44.2); Mean Corpuscular HGB Conc 31.8 g/dl (32-36); Mean Corpuscular Hemoglobin 28.5 pg (26-34); Mean Corpuscular Volume 89.5 fl (80-100); Mean Platelet Volume 11.2 fl (7.4-10.4); Monocytes Absolute Auto 1.1 K/mm3 (0.1-0.6); Neutrophils Absolute Auto 6.5 K/mm3 (1.3-6.7); Neutrophils Percent Auto 73.4 % (45.5-73.1); Platelet Count Result 203 k/mm3 (150-375); Red Cell Distribution Width 14.7 % (11.5-14.5); White Blood Count 8.9 K/mm3 (4.5-10.0)
[2023-07-17 10:10] LABS: Alanine Aminotransferase 17 U/L (6-35); Albumin Level 4.3 g/dL (3.5-5.1); Alkaline Phosphatase 76 U/L (38-126); Anion Gap 7 mmol/L (8-16); Aspartate Amino Transferase 23 U/L (14-36); Bilirubin,Total 0.7 mg/dL (0.2-1.3); Blood Urea Nitrogen 12 mg/dL (7-17); Calcium 8.9 mg/dL (8.4-10.2); Carbon Dioxide 30 mmol/L (22-30); Chloride 97 mmol/L (98-107); Estimated Glomerular Filt Rate > 60; Glucose 108 mg/dL (65-110); Lipase 61 U/L (23-300); Potassium 3.3 mmol/L (3.4-5.0); Sodium 134 mmol/L (137-145)
--- NOTE | 2023-07-17 10:27 | ED.GENADULT ---
HPI - General Adult General Chief complaint: Nausea/Vomiting/Diarrhea <Kristian Garcia PA-C - Last Filed: 07/17/23 18:29> Stated complaint: N/V <Kristian Garcia PA-C - Last Filed: 07/17/23 18:29> Time Seen by Provider: 07/17/23 09:54 <Kristian Garcia PA-C - Last Filed: 07/17/23 18:29> Source: patient <BROOK Brannon Last Filed: 07/17/23 18:29> Mode of arrival: ambulatory <Kristian Garcia PA-C - Last Filed: 07/17/23 18:29> Limitations: no limitations <Kristian Garcia PA-C - Last Filed: 07/17/23 18:29> History of Present Illness HPI narrative: This is a 78-year-old female with PMH of COPD, HTN, HLD who presents to the ED with chief complaint of GERD symptoms ongoing for the past 4 weeks. Patient states that she has had on and off vomiting that comes with eating certain foods. She states that she tried to eat some sweet pastries yesterday and had multiple episodes of reflux like vomiting. She states that she was given a prescription for PPI and has been taking this and feels like this helps with the acid related pain. She was also given a prescription for Zofran as needed but states that she has not taken this because she is scared of the side effects. She states today she is asymptomatic but is afraid of vomiting if she eats the wrong foods. Denies chest pain, shortness of breath, LOC, problems with bowel movements, urinary symptoms. Per chart review UA culture from 2 weeks ago shows no growth. <BROOK Brannon Last Filed: 07/17/23 18:29> Related Data Home medications: Home Medications Medication Instructions Recorded Confirmed Aleve 220 mg PO BID 10/15/20 07/08/23 Aspirin Childrens 81 mg PO DAILY 10/15/20 07/08/23 Glucosamine 2,000 mg PO BID 10/15/20 07/08/23 cetirizine 10 mg PO DAILY 10/15/20 07/08/23 cyanocobalamin (vitamin B-12) 1,000 mcg PO DAILY 10/15/20 07/08/23 1,000 mcg tablet (Vitamin B-12) guaifenesin 400 mg PO DAILY 10/15/20 07/08/23 acetaminophen 500 mg tablet 500 mg PO Q6H PRN 07/08/23 07/08/23 (Acetaminophen Pain Relief) ascorbic acid (vitamin C) 1,000 mg 1 g PO DAILY 07/08/23 07/08/23 tablet calcium carbonate 168 mg calcium 168 mg PO TID 07/08/23 07/08/23 (420 mg) chewable tablet (Antacid Extra-Strength) calcium carbonate 600 mg calcium 600 mg PO DAILY 07/08/23 07/08/23 (1,500 mg) tablet (Calcium) ibuprofen 200 mg tablet (IBU-200) 200 mg PO Q6H PRN 07/08/23 07/08/23 magnesium 250 mg tablet 250 mg PO DAILY 07/08/23 07/08/23 <Kristian Garcia PA-C - Last Filed: 07/17/23 18:29> Allergies/adverse reactions: Allergies Allergy/AdvReac Type Severity Reaction Status Date / Time diphenhydramine Allergy Intermediate SEVERE Verified 07/10/23 16:53 ITCHING codeine Allergy Unknown Confusion Verified 07/10/23 16:53 Penicillins Allergy Unknown Confusion Verified 07/10/23 16:53 <Kristian Garcia PA-C - Last Filed: 07/17/23 18:29> Review of Systems Review of Systems: All systems as dictated in HPI <Kristian Garcia PA-C - Last Filed: 07/17/23 18:29> [facility] Past Medical History Medical History: Medical History Acute respiratory failure with hypoxia C. difficile colitis H/O compression fracture of spine Hyperlipidemia Hypertension Osteoporosis Pancolitis Peripheral arterial disease with history of revascularization Pleural effusion <Kristian Garcia PA-C - Last Filed: 07/17/23 18:29> Surgical History Surgical History: Surgical History H/O carpal tunnel repair Right Hand History of open reduction and internal fixation (ORIF) procedure Left Tibia History of vascular surgery Right leg bypass surgery 09/12 <Kristian Garcia PA-C - Last Filed: 07/17/23 18:29> Family History Family History: Family History Mother Heart attack Other Family history o
[2023-07-17] MEDS: POTASSIUM CHLORIDE 20 MEQ PACKET (FOR LIQUID) PO (11:04)
[2023-07-17 13:13] VITALS: BP 111/96; PULSE 77; RESP 20; O2SAT 94
== END 2023-07-17 13:15 | disposition home or self-care (01) ==
PROVIDERS: Student in an Organized Health Care Education/Training Program; Emergency Provider Physician Assistant; PCP Family Medicine Adolescent Medicine
DX: K21.9 Gastro-esophageal reflux disease without esophagitis (principal); J44.9 Chronic obstructive pulmonary disease, unspecified; I10 Essential (primary) hypertension; I73.9 Peripheral vascular disease, unspecified; E78.5 Hyperlipidemia, unspecified; M81.0 Age-related osteoporosis without current pathological fracture; F17.210 Nicotine dependence, cigarettes, uncomplicated
CPT/HCPCS: 36415; 80053; 83690; 85025; 99283; A9270

== ENCOUNTER 2023-08-11 12:48 | Emergency (ER) | payer OTHER, SELFPAY ==
[2023-08-11] VITALS (7 sets, daily range): BP systolic 92–158; BP diastolic 57–66; PULSE 90–97; RESP 16–20; TEMP 36.4; O2SAT 94–97
--- NOTE | ~2023-08-11 | XR_ITS ---
EXAMINATION: XR chest 1V portable INDICATION: Chest pain and hypertension TECHNIQUE: Portable AP chest at 1325 hours COMPARISON: 10/16/2020 FINDINGS: There are airspace opacities in the left midlung zone. No pleural effusion or pneumothorax. The cardiomediastinal silhouette is stable. IMPRESSION: 1. Airspace opacities of the left midlung zone, consistent with atelectasis versus pneumonia. Reviewed, dictated and finalized at location B. IMPRESSION: 1. Airspace opacities of the left midlung zone, consistent with atelectasis stone amelia pneumonia.
--- NOTE | 2023-08-11 13:00 | ECG_ITS ---
Measurements Intervals [place] Rate: 98 P: 82 ND: 192 QRS: 72 QRSD: 142 T: 119 QT: 381 QTc: 487 Interpretive Statements SINUS RHYTHM LEFT BUNDLE BRANCH BLOCK BASELINE ARTIFACT- I, II, AVR, AVL, V1-V2 ABNORMAL ECG COMPARED TO ECG 07/10/2023 16:54:23 NO SIGNIFICANT CHANGES Electronically Signed On 08-11-2023 13:15:40 CDT by [place] Alfredo D.O.
--- NOTE | 2023-08-11 13:01 | ED.CHESTPAIN ---
HPI - Chest Pain General Chief Complaint: Chest Pain Stated Complaint: STEMI Time Seen by Provider: 08/11/23 12:56 History of Present Illness HPI narrative: Patient is a 78-year-old female with a history of hypertension, GERD, tobacco use, hyperlipidemia presenting initially as a STEMI alert. Patient states that she was feeling well this morning and she met some friends at a restaurant. States that she began feeling nauseated so she stopped eating and then she had an episode of emesis. She went to the restroom and had several more episodes of emesis followed by a sensation of lightheadedness. She went back out and told her friends that she needed to go home but they told her no and called an ambulance. Prehospital EKG with a left bundle and elevations in the precordial so STEMI alert was called. On arrival, patient is alert and oriented. She denies any pain at this time. States that she actually feels much better. Denies shortness of breath, chest pain, palpitations, back pain. No numbness or weakness. No fevers or chills, cough, leg swelling. States that she has had a lot of indigestion symptoms lately and has been losing weight so her PCP recently recommended she see a GI doctor. Related Data Home Medications Medication Instructions Recorded Confirmed Aleve 220 mg PO BID 10/15/20 07/08/23 Aspirin Childrens 81 mg PO DAILY 10/15/20 07/08/23 Glucosamine 2,000 mg PO BID 10/15/20 07/08/23 cetirizine 10 mg PO DAILY 10/15/20 07/08/23 cyanocobalamin (vitamin B-12) 1,000 mcg PO DAILY 10/15/20 07/08/23 1,000 mcg tablet (Vitamin B-12) acetaminophen 500 mg tablet 500 mg PO Q6H PRN 07/08/23 07/08/23 (Acetaminophen Pain Relief) ascorbic acid (vitamin C) 1,000 mg 1 g PO DAILY 07/08/23 07/08/23 tablet calcium carbonate 168 mg calcium 168 mg PO TID 07/08/23 07/08/23 (420 mg) chewable tablet (Antacid Extra-Strength) calcium carbonate 600 mg calcium 600 mg PO DAILY 07/08/23 07/08/23 (1,500 mg) tablet (Calcium) ibuprofen 200 mg tablet (IBU-200) 200 mg PO Q6H PRN 07/08/23 07/08/23 magnesium 250 mg tablet 250 mg PO DAILY 07/08/23 07/08/23 Allergies Allergy/AdvReac Type Severity Reaction Status Date / Time diphenhydramine Allergy Intermediate SEVERE Verified 08/11/23 13:09 ITCHING codeine Allergy Unknown Confusion Verified 08/11/23 13:09 Penicillins Allergy Unknown Confusion Verified 08/11/23 13:09 Review of Systems Review of Systems: All systems reviewed & are unremarkable except as noted in HPI and below PMFSH Past Medical History Medical History Acute respiratory failure with hypoxia C. difficile colitis H/O compression fracture of spine Hyperlipidemia Hypertension Osteoporosis Pancolitis Peripheral arterial disease with history of revascularization Pleural effusion Surgical History Surgical History H/O carpal tunnel repair Right Hand History of open reduction and internal fixation (ORIF) procedure Left [place] History of vascular surgery Right leg bypass surgery 09/12 Family History Family History Mother Heart attack Other Family history of cardiovascular disease Social History Social History Years smoked: 55 Smoking status: Current every day smoker Tobacco type: cigarettes Additional smoking assessment comments: smoked 1/2 ppd for over 50 years Alcohol intake: former Alcohol use details: Does not currently drink Substance use: never Substance use type: does not use Lack of Food: Never True Difficulty Paying Gas/Electric Bills: No Difficulty Paying for Meds: No Living arrangements: alone Additional living arrangements comments: who resides in her own home with her cat Occupation/Education: retired Gender identity (if verbalized by the
[2023-08-11 13:21] LABS: Basophils Percent Auto 0.4 % (0.2-1.2); Eosinophils Absolute Auto 0.2 K/mm3 (0-0.3); Eosinophils Percent Auto 1.8 % (0-4.4); Hematocrit 37.4 % (37.0-47.0); Hemoglobin 11.5 g/dL (12.0-15.0); Immature Granulocyte Absolute 0.01 K/mm3 (0.00-0.031); Immature Granulocyte Percent A 0.1 % (0-0.5); Lymphocytes Absolute Auto 1.19 K/mm3 (0.9-3.2); Lymphocytes Percent Auto 14.4 % (18.3-44.2); Mean Corpuscular HGB Conc 30.7 g/dl (32-36); Mean Corpuscular Hemoglobin 27.4 pg (26-34); Mean Corpuscular Volume 89.3 fl (80-100); Monocytes Absolute Auto 0.8 K/mm3 (0.1-0.6); Monocytes Percent Auto 9.9 % (2.6-8.5); Neutrophils Absolute Auto 6.1 K/mm3 (1.3-6.7); Neutrophils Percent Auto 73.4 % (45.5-73.1); Platelet Count Result 226 k/mm3 (150-375); Red Blood Count 4.19 M/mm3 (4.2-5.4); Red Cell Distribution Width 14.9 % (11.5-14.5); White Blood Count 8.3 K/mm3 (4.5-10.0)
[2023-08-11 13:32] LABS: Prothrombin Time 13.7 Seconds (11.1-14.7)
[2023-08-11 13:33] LABS: Alanine Aminotransferase 14 U/L (6-35); Albumin Level 4.5 g/dL (3.5-5.1); Alkaline Phosphatase 77 U/L (38-126); Anion Gap 7 mmol/L (8-16); Aspartate Amino Transferase 24 U/L (14-36); Bilirubin,Total 0.5 mg/dL (0.2-1.3); Blood Urea Nitrogen 14 mg/dL (7-17); Calcium 9.2 mg/dL (8.4-10.2); Carbon Dioxide 29 mmol/L (22-30); Chloride 99 mmol/L (98-107); Estimated CRCL calculation 46 ml/min; Estimated Glomerular Filt Rate > 60; Glucose 140 mg/dL (65-110); Lipase 75 U/L (23-300); Partial Thromboplastin Time 26.5 SECONDS (22.3-36.8); Potassium 3.5 mmol/L (3.4-5.0); Sodium 135 mmol/L (137-145)
[2023-08-11 13:44] LABS: Troponin I < 0.012 ng/mL (0.000-0.034)
[2023-08-11] MEDS: SODIUM CHLORIDE 0.9% IV 1,000 ML 999 ML IV CONT (13:47)
[2023-08-11] MEDS: FAMOTIDINE 20 MG/2 ML VIAL IV PUSH (13:47)
[2023-08-11 16:49] LABS: Troponin I < 0.012 ng/mL (0.000-0.034)
== END 2023-08-11 18:16 | disposition home or self-care (01) ==
PROVIDERS: Emergency Provider Emergency Medicine; PCP Family Medicine Adolescent Medicine
DX: R11.10 Vomiting, unspecified (principal); R42 Dizziness and giddiness; R14.2 Eructation; E78.5 Hyperlipidemia, unspecified; I10 Essential (primary) hypertension; I73.9 Peripheral vascular disease, unspecified; M81.0 Age-related osteoporosis without current pathological fracture; K21.9 Gastro-esophageal reflux disease without esophagitis; F17.210 Nicotine dependence, cigarettes, uncomplicated; Z79.82 Long term (current) use of aspirin; I44.7 Left bundle-branch block, unspecified
CPT/HCPCS: 36415; 71045; 80053; 83690; 83735; 84484; 85025; 85610; 85730; 93005; 96361; 96374; 99284; J7030

== ENCOUNTER 2023-09-30 02:54 | Day surgery (SDC) | payer OTHER, SELFPAY ==
[2023-09-18 12:49] VITALS: BMI 17.0
--- NOTE | 2023-09-26 11:04 | SUR.PREOP ---
Patient called regarding upcoming procedure. Reviewed preop instructions, appointment times, and procedure prep.
[2023-09-30 09:24] VITALS: BP 123/62; PULSE 97; RESP 18; TEMP 36.3; O2SAT 95
[2023-09-30] MEDS: LACTATED RINGERS 1,000 ML 150 ML IV CONT (09:35)
--- NOTE | 2023-09-30 09:44 | PM.HPGS ---
History of Present Illness History of Present Illness Consent: Risks, benefits, and alternatives have been discussed and questions answered. Patient agrees to proceed with procedure. Chief complaint: Abnormal weight loss,nausea,Abdom.Distension, Narrative: Gregoria Vuong is a 78 year old female Patient presents for neoplasia screening colonoscopy. She has a history of colon polyps Most recently by exam 5 years ago.. Additionally complains of belching. She reports 15-20 lb weight loss over recent months. Plan for screening colonoscopy an EGD. Patient denies any bleeding. She does have frequent belching with occasional vomiting. Review of Systems Review of Systems: Review of systems noncontributory. [facility] Past Medical History Medical History (Updated 08/19/23 @ 14:29 by Keisah Marcelo, EDMAR) Abdominal bloating Acute respiratory failure with hypoxia C. 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 Osteoporosis Pancolitis Peripheral arterial disease with history of revascularization Pleural effusion Stenosis of celiac artery Surgical History Surgical History H/O carpal tunnel repair Right Hand History of open reduction and internal fixation (ORIF) procedure Left [place] History of vascular surgery Right leg bypass surgery 09/12 Family History Family History Mother Heart attack Other Family history of cardiovascular disease Social History Social History Years smoked: 55 Smoking status: Current every day smoker Tobacco type: cigarettes Additional smoking assessment comments: smoked 1/2 ppd for over 50 years Alcohol intake: former Alcohol use details: Does not currently drink Substance use: never Substance use type: does not use Lack of Food: Never True Difficulty Paying Gas/Electric Bills: No Difficulty Paying for Meds: No Living arrangements: alone Additional living arrangements comments: who resides in her own home with her cat Occupation/Education: retired Gender identity (if verbalized by the patient): Female Spiritual care concerns: No Meds Home Medications and Allergies Home Medications Medication Instructions Recorded Confirmed Type Aleve 220 mg PO BID 10/15/20 09/18/23 History Aspirin Childrens 81 mg PO DAILY 10/15/20 09/18/23 History Glucosamine 2,000 mg PO BID 10/15/20 09/18/23 History cetirizine 10 mg PO DAILY 10/15/20 09/18/23 History cyanocobalamin (vitamin B-12) 1,000 mcg PO DAILY 10/15/20 09/18/23 History 1,000 mcg tablet (Vitamin B-12) amlodipine 10 mg tablet 10 mg PO DAILY #90 tabs 04/08/23 09/18/23 Rx rosuvastatin 10 mg tablet 10 mg PO DAILY #90 tabs 04/08/23 09/18/23 Rx acetaminophen 500 mg tablet 500 mg PO Q6H PRN Pain 07/08/23 09/18/23 History (Acetaminophen Pain Relief) ascorbic acid (vitamin C) 1,000 mg 1 g PO DAILY 07/08/23 09/18/23 History tablet calcium carbonate 168 mg calcium 168 mg PO TID 07/08/23 09/18/23 History (420 mg) chewable tablet (Antacid Extra-Strength) calcium carbonate 600 mg calcium 600 mg PO DAILY 07/08/23 09/18/23 History (1,500 mg) tablet (Calcium) magnesium 250 mg tablet 250 mg PO DAILY 07/08/23 09/18/23 History ondansetron 4 mg disintegrating 4 mg PO Q6H PRN nausea and 07/10/23 09/18/23 Rx tablet vomiting #14 tabs fluticasone 250 mcg-salmeterol 50 1 inh inhalation BID #180 ea 07/20/23 09/18/23 Rx mcg/dose blistr powdr for inhalation hydrocodone 5 mg-acetaminophen 325 1 tablet PO QID PRN pain #28 tabs 08/04/23 09/18/23 Rx mg tablet lorazepam 0.5 mg tablet 0.5 mg PO BID #60 tabs 08/07/23 09/18/23 Rx pantoprazole 40 mg tablet,delayed 40 mg PO BID #60 tabs 08/19/23
--- NOTE | 2023-09-30 10:07 | WPDANESEPPF ---
Anes - Initial Pre Proc Eval Procedure: Operation Date: 09/30/23 10:15 Proposed Procedures p Esophagogastroduodenoscopy & Colonoscopy - Ryan Jamil MD Date/Time: 09/30/23 10:07 Surgeon: Ryan Jamil MD Pre Op Diagnosis: Abnormal weight loss,nausea,Abdom.Distension, Patient Data Age: 78 Gender: F Height: 1.63 m Weight: 42.6 kg Last Vital Signs Temp 97.3 F L 09/30/23 09:24 Pulse 97 09/30/23 09:24 Resp 18 09/30/23 09:24 BP 123/62 09/30/23 09:24 Pulse Ox 95 09/30/23 09:24 O2 Del Method Room Air 09/30/23 09:24 Allergies Allergy/AdvReac Type Severity Reaction Status Date / Time diphenhydramine Allergy Intermediate SEVERE Verified 09/30/23 09:21 ITCHING codeine AdvReac Unknown Confusion Verified 09/30/23 09:21 Penicillins AdvReac Unknown Confusion Verified 09/30/23 09:21 Home Medications Medication Instructions Recorded Confirmed Type Aleve 220 mg PO BID 10/15/20 09/18/23 History Aspirin Childrens 81 mg PO DAILY 10/15/20 09/18/23 History Glucosamine 2,000 mg PO BID 10/15/20 09/18/23 History cetirizine 10 mg PO DAILY 10/15/20 09/18/23 History cyanocobalamin (vitamin B-12) 1,000 mcg PO DAILY 10/15/20 09/18/23 History 1,000 mcg tablet (Vitamin B-12) amlodipine 10 mg tablet 10 mg PO DAILY #90 tabs 04/08/23 09/18/23 Rx rosuvastatin 10 mg tablet 10 mg PO DAILY #90 tabs 04/08/23 09/18/23 Rx acetaminophen 500 mg tablet 500 mg PO Q6H PRN Pain 07/08/23 09/18/23 History (Acetaminophen Pain Relief) ascorbic acid (vitamin C) 1,000 mg 1 g PO DAILY 07/08/23 09/18/23 History tablet calcium carbonate 168 mg calcium 168 mg PO TID 07/08/23 09/18/23 History (420 mg) chewable tablet (Antacid Extra-Strength) calcium carbonate 600 mg calcium 600 mg PO DAILY 07/08/23 09/18/23 History (1,500 mg) tablet (Calcium) magnesium 250 mg tablet 250 mg PO DAILY 07/08/23 09/18/23 History ondansetron 4 mg disintegrating 4 mg PO Q6H PRN nausea and 07/10/23 09/18/23 Rx tablet vomiting #14 tabs fluticasone 250 mcg-salmeterol 50 1 inh inhalation BID #180 ea 07/20/23 09/18/23 Rx mcg/dose blistr powdr for inhalation hydrocodone 5 mg-acetaminophen 325 1 tablet PO QID PRN pain #28 tabs 08/04/23 09/18/23 Rx mg tablet lorazepam 0.5 mg tablet 0.5 mg PO BID #60 tabs 08/07/23 09/18/23 Rx pantoprazole 40 mg tablet,delayed 40 mg PO BID #60 tabs 08/19/23 09/18/23 Rx release Patient hx anesthesia problems: none Family hx anesthesia problems: none Results Review: All pre-operative results and documents have been reviewed as part of the pre-operative evaluation. [facility] Past Medical History Medical History (Updated 08/19/23 @ 14:29 by Keisha Marcelo, EDMAR) Abdominal bloating Acute respiratory failure with hypoxia C. 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 Osteoporosis Pancolitis Peripheral arterial disease with history of revascularization Pleural effusion Stenosis of celiac artery Surgical History Surgical History H/O carpal tunnel repair Right Hand History of open reduction and internal fixation (ORIF) procedure Left [place] History of vascular surgery Right leg bypass surgery 09/12 Family History Family History Mother Heart attack Other Family history of cardiovascular disease Social History Social History Years smoked: 55 Smoking status: Current every day smoker Tobacco type: cigarettes Additional smoking assessment comments: smoked 1/2 ppd for over 50 years Alcohol intake: former Alcohol use details: Does not currently drink Substance use: never Substance use type: does not use Lack of Food: Never True Difficulty Paying Gas/El
--- NOTE | 2023-09-30 11:01 | SUR.OPER ---
EGD start 1104 end 1106, Colonoscopy start 1113
[2023-09-30 11:31] VITALS: BP 132/58; PULSE 86; RESP 23; O2SAT 93
[2023-09-30 11:41] VITALS: BP 150/65; PULSE 76; RESP 23; O2SAT 97
[2023-09-30 11:51] VITALS: BP 162/71; PULSE 77; RESP 22; O2SAT 98
== END 2023-09-30 12:03 | disposition home or self-care (01) ==
PROVIDERS: PCP Family Medicine Adolescent Medicine; Visit Provider Internal Medicine Gastroenterology
PROC: 0DJ08ZZ Inspection of Upper Intestinal Tract, Via Natural or Artificial Opening Endoscopic (ICD-10-PCS; CPT 43235; principal; 2023-09-30 10:15)
DX: Z12.11 Encounter for screening for malignant neoplasm of colon (principal); K64.8 Other hemorrhoids; Z86.010 Personal history of colon polyps; I10 Essential (primary) hypertension; E78.5 Hyperlipidemia, unspecified; I73.9 Peripheral vascular disease, unspecified; F17.210 Nicotine dependence, cigarettes, uncomplicated
CPT/HCPCS: G0105; 87081; J2704; J7120

== ENCOUNTER 2025-05-13 09:55 | Emergency (ER) | payer OTHER, SELFPAY ==
[2025-05-13] VITALS (21 sets, daily range): BP systolic 92–128; BP diastolic 45–68; PULSE 78–93; RESP 15–23; TEMP 36.6; O2SAT 75–100
--- NOTE | ~2025-05-13 | CT_ITS ---
EXAMINATION: CTA chest PE abdomen pel DATE: 05/13/2025 12:54 INDICATION: Lung mass. Elevated d-dimer. TECHNIQUE: Computed tomography (CT) pulmonary angiogram of the chest was performed with 100 mL Omnipa que-350 intravenous contrast. Additional 3D reconstructions utilizing coronal maximum intensity proje ction (MIP) were performed. CT of the abdomen and pelvis was performed with intravenous contrast util izing the same contrast bolus following a short delay. Automated exposure control and iterative recon struction technique were employed. The dose-length product was 284.08 mGy-cm. COMPARISON: Carotid CT angiogram dated 05/13/2025, CT abdomen and pelvis dated 07/01/[address] d ated 10/17/2020 FINDINGS: Chest: No pulmonary embolism. There is a 6.2 x 5.8 x 4.3 cm paramediastinal mass in the anteromedial left up per lobe which occludes the anterior segmental left upper lobar pulmonary artery and bronchus. There is extensive contact between the mass in the mediastinum along the left side of the aortic arch and t he main pulmonary artery without definitive mediastinal invasion. There is a second 6.2 x 4.3 x 6.4 c m paravertebral mass in the left lower lobe with likely transpleural extension to involve the pleural space along side a small left pleural effusion as well as the paravertebral subpleural fat with the mass surrounding a couple posterior intercostal arteries between T5 and T8. Small region of periphera l consolidation with air bronchograms at the posterior apical segment of the right upper lobe with co nfiguration more suggestive of atelectasis or pneumonia than malignancy. Approximately 1 cm nodule wi th spiculated margins in the medial right upper lobe abutting the lateral wall of the distal trachea. No right-sided pleural effusion. Heart size is normal. Atherosclerotic coronary artery calcification s. No pericardial effusion. Thoracic aorta is normal in caliber with no dissection. No pathologically enlarged mediastinal or hilar lymphadenopathy. Multiple chronic compression fractures throughout the thoracic spine. Contrast within patent right axillary to right femoral and bifemoral bypass grafts. There is a small subcutaneous seroma surrounding the lower thoracic to upper pelvic portion of the by pass graft which measures up to 2.6 x 1.8 cm maximal transaxial dimensions. Abdomen/pelvis: 7.2 x 6.1 cm hypoenhancing mass with peripheral localized intrahepatic biliary ductal dilation the la teral segment of the left hepatic lobe. The mass could be either primary hepatocellular carcinoma, cl inical carcinoma or metastatic. No other hepatic lesions identified. Gallbladder, spleen, pancreas an d bilateral adrenal glands are normal. 1.3 cm cyst at the upper pole the right kidney. Excreted contr ast in the bilateral renal collecting systems, ureters and normal-appearing bladder related to the ea rlier carotid CT angiogram. No bowel obstruction or abnormal bowel wall thickening. Age-appropriate a trophy of the uterus and adnexa. No free intraperitoneal gas or fluid. No pathologically enlarged abd ominal or pelvic lymphadenopathy. There is prominent calcified atherosclerosis of the aorta and many of the other arteries. There is a severe 75% stenosis at the infrarenal abdominal aorta. Old healed i ntertrochanteric fracture the proximal femur with antegrade intramedullary heather and femoral neck dynam ic compression screw fixation. Additional old healed fracture of the right pubic body. Chronic compre ssion fractures throughout the lumbar spine. IMPRESSION: 1. Large masses at the left upper and lower lobes, the latter with extrapleural invasion of the parav ertebral subpleural fat and with likely malignant small left pleural effusion. These masses could be either primary or metastatic. 2. Additional large mass in the left hepatic lobe with peripheral intrahepatic biliary ductal dilatio n which could similarly be primary hepatocellular carcinoma versus cholangiocarcinoma or metastatic. If this has not been previously worked up would consider ultrasound guided biopsy of the liver mass. 3. Mild emphysema. 4. Cardiomegaly. 5. Extensive atherosclerotic disease with severe stenosis of the infrarenal abdominal aorta and paten t right axillary to femoral and bifemoral bypass grafts. Reviewed, dictated and finalized at location A. IMPRESSION: 1. Large masses at the left upper and lower lobes, the latter with extrapleural invasion of the paravertebral subpleural fat and with likely malignant small l eft pleural effusion. These masses could be either primary or metastatic. 2. Additional large mass in the left hepatic lobe with peripheral intrahepatic biliary ductal dilation which could similarly be primary hepatocellular carcino ma versus cholangiocarcinoma or metastatic. If this has not been previously wor ked up would consider ultrasound guided biopsy of the liver mass. 3. Mild emphysema. 4. Cardiomegaly. 5. Extensive atherosclerotic disease with severe stenosis of the infrarenal abd ominal aorta and patent right axillary to femoral and bifemoral bypass grafts.
--- NOTE | ~2025-05-13 | XR_ITS ---
Portable chest x-ray Comparison: 08/11/2023 Clinical History: Neurologic deficit Findings: There is COPD pattern of the lungs. There is extensive left upper lobe consolidation versu s possibly mass. Right lung clear. Cardiomediastinal silhouette is stable. Bones and soft tissues ar e unremarkable. Impression: Probable extensive left upper lobe pneumonia versus possibly mass. Consider chest CT for further eval uation. COPD. Reviewed, dictated and finalized at location . Impression: Probable extensive left upper lobe pneumonia versus possibly mass. Consider [facility] CT for further evaluation. COPD.
--- NOTE | ~2025-05-13 | CT_ITS ---
CTA brain carotid Ordering provider: Kat Benton MD History: . L arm/face weakness, LNK yesterday . Comparison: None. Technique: CT angiogram head and neck was performed following timed intravenous injection of contrast . Thin slice axial images and reformatted coronal images were obtained. Three dimensional reformatted images of the brain were also obtained using a [employer] workstation. Radiation reduction technique ut ilized. The dose-length product was 1698.58 mGy-cm. 85 mL Omnipaque 350 was given IV. FINDINGS: HEAD: --ANTERIOR AND MIDDLE CEREBRAL ARTERIES AND BRANCHES: Normal caliber and contour. --INTERNAL CAROTID ARTERIES: Mild atheromatous disease but no significant stenosis. No occlusion. --BASILAR ARTERY AND BRANCHES: Normal caliber and contour. No atheromatous disease. --POSTERIOR CEREBRAL ARTERIES: Normal caliber and contour --POSTERIOR COMMUNICATING ARTERIES: The right is demonstrated and continues as the right posterior ce rebral artery. The left is not visualized which is probably related to congenital absence or small si ze. --ANEURYSM: None visualized. --BRAIN: Mild brain atrophy with deep white matter ischemic changes. Hypodensity seen in the subcorti estefania area of the right parietal lobe which may subacute or old infarct. --BONES AND SUPERFICIAL SOFT TISSUES: Normal. --PARANASAL SINUSES AND MASTOIDS: Well aerated. NECK: --RIGHT CERVICAL CAROTID SYSTEM: Mild atheromatous disease of the carotid bulb and proximal internal carotid artery without significant stenosis. Percent stenosis per NASCET criteria is 60%. No carotid dissection. Otherwise, no significant atheromatous disease or stenosis of the cervical carotid system . --LEFT CERVICAL CAROTID SYSTEM: Slight narrowing at the origin of the left common carotid artery is n oted. Mild atheromatous disease of the carotid bulb and proximal internal carotid artery without sign ificant stenosis. Percent stenosis per NASCET criteria is 30%. No carotid dissection. Otherwise, no significant atheromatous disease or stenosis of the cervical carotid system. --VERTEBRAL ARTERIES: The right vertebral artery is tiny in caliber with nonvisualization proximally. . Slight narrowing of the left vertebral artery is seen about 20%. Normal caliber and contour. --VISUALIZED AORTIC ARCH AND BRANCHING VESSELS: Mild atheromatous disease but no significant stenosis . A mass is seen in the prevascular area in the left upper lobe which measures 5.9 x 4.2 cm. Another mass is seen in the left lower lobe posteriorly lobe which is pleural-based and measures 4 x 6.1 cm. The posterior mass is adjacent to the aorta. The anterior mass is adjacent to the aortic arch, ascend ing aorta and pulmonary arteries. Minimal left pleural effusion is seen. Follicle opacification the right upper lobe is noted which is suggestive of atelectasis versus pneumonia. --SOFT TISSUES: Grossly enlarged thyroid gland suggestive of a mass is seen measuring 4.2 x 5.2 cm. L eft posterior triangular lymph nodes with necrosis is seen measuring 2.5 x 2.5 cm. The left jugular vein is not demonstrated. --CERVICAL SPINE: Age appropriate degenerative changes. IMPRESSION: 1. Large Left lobe of the thyroid mass. Small nodule in the right lobe. 2. Multiple masses in the left lung. CT chest is advised. 3. Minimal left pleural effusion. 4. Lymphadenopathy in the left side of the neck with multiple necrotic lymph nodes. Mild to moderate narrowing in the cavernous carotid arteries otherwise, Normal CTA head. 5. CTA neck. Percent stenosis per NASCET criteria is 60% on the right and 30% on the left. 6. Small caliber of the right vertebral artery with nonvisualization of the proximal right vertebral artery. Reviewed, dictated and finalized at location A. IMPRESSION: 1. Large Left lobe of the thyroid mass. Small nodule in the right lobe. 2. Multiple masses in the left lung. CT chest is advised. 3. Minimal left pleural effusion. 4. Lymphadenopathy in the left side of the neck with multiple necrotic lymph n odes. Mild to moderate narrowing in the cavernous carotid arteries otherwise, Normal CTA head. 5. CTA neck. Percent stenosis per NASCET criteria is 60% on the right and 30% on the left. 6. Small caliber of the right vertebral artery with nonvisualization of the pr oximal right vertebral artery.
--- NOTE | 2025-05-13 10:03 | ECG_ITS ---
Test Date: 2025-05-13 10:15:10 Measurements Intervals [place] Rate: 95 P: 19 LA: 156 QRS: 1 QRSD: 82 T: -41 QT: 349 QTc: 440 Interpretive Statements SINUS RHYTHM NONSPECIFIC ST & T-WAVE ABNORMALITY- INF/LAT LEADS BASELINE ARTIFACT- I, II, AVR, AVL, AVF, V1, V3-V6 BORDERLINE ECG No previous ECG available for comparison Electronically Signed On 05-13-2025 10:47:38 CDT by [place] Alfredo D.O.
[2025-05-13 10:12] LABS: Glucose Point of Care 110 mg/dl (65-105)
[2025-05-13] MEDS: IPRATROPIUM 0.5 MG/ALBUTEROL SULFATE 2.5 MG AMPUL.NEB 3 ML INHALATION ×2 (10:29→14:12)
[2025-05-13 10:34] LABS: Basophils Absolute Auto 0.1 K/mm3 (0.0-0.1); Basophils Percent Auto 0.4 % (0.2-1.2); Eosinophils Percent Auto 0.4 % (0-4.4); Hematocrit 34.1 % (37.0-47.0); Hemoglobin 9.5 g/dL (12.0-15.0); Immature Granulocyte Absolute 0.07 K/mm3 (0.00-0.031); Immature Granulocyte Percent A 0.6 % (0-0.5); Lymphocytes Absolute Auto 0.69 K/mm3 (0.9-3.2); Lymphocytes Percent Auto 6.1 % (18.3-44.2); Mean Corpuscular HGB Conc 27.9 g/dl (32-36); Mean Corpuscular Hemoglobin 22.1 pg (26-34); Mean Corpuscular Volume 79.3 fl (80-100); Mean Platelet Volume 9.2 fl (7.4-10.4); Monocytes Absolute Auto 0.9 K/mm3 (0.1-0.6); Monocytes Percent Auto 7.7 % (2.6-8.5); Neutrophils Absolute Auto 9.5 K/mm3 (1.3-6.7); Neutrophils Percent Auto 84.8 % (45.5-73.1); Platelet Count Result 302 k/mm3 (150-375); Red Cell Distribution Width 20.6 % (11.5-14.5); White Blood Count 11.2 K/mm3 (4.5-10.0)
[2025-05-13 10:39] LABS: Alanine Aminotransferase 23 U/L (6-35); Albumin Level 3.5 g/dL (3.5-5.1); Alkaline Phosphatase 325 U/L (38-126); Anion Gap 7 mmol/L (4-12); Aspartate Amino Transferase 35 U/L (14-36); Bilirubin,Total 0.4 mg/dL (0.2-1.3); Blood Urea Nitrogen 7 mg/dL (7-17); Calcium 8.9 mg/dL (8.4-10.2); Carbon Dioxide 32 mmol/L (22-30); Chloride 103 mmol/L (98-107); Estimated CRCL calculation 44 ml/min; Estimated Glomerular Filt Rate > 60; Glucose 120 mg/dL (65-110); Potassium 4.1 mmol/L (3.4-5.0); Sodium 142 mmol/L (137-145); Total Protein 7.5 g/dL (6.3-8.2)
[2025-05-13 10:52] LABS: INR 1.2; Prothrombin Time 15.2 Seconds (11.1-14.7)
[2025-05-13 10:53] LABS: Partial Thromboplastin Time 30.3 Seconds (22.3-36.8)
[2025-05-13 10:55] LABS: Troponin I 0.052 ng/mL (0.000-0.034)
[2025-05-13 10:57] LABS: Anisocytosis 1+; Hypochromasia 1+; Ovalocytes 1+; Platelet Estimate Adequate (Adequate); Schistocytes None Seen
[2025-05-13 11:50] LABS: D Dimer 5.47 ug/mL (<0.48)
[2025-05-13] MEDS: SODIUM CHLORIDE 0.9% IV 1,000 ML 999 ML IV CONT (12:05)
[2025-05-13] MEDS: AZITHROMYCIN 250 MG TABLET 500 MG PO (12:06)
[2025-05-13 12:26] LABS: Lactic Acid Reflex 1.5 mmol/L (0.7-2.0)
--- NOTE | 2025-05-13 13:26 | ED_ITS ---
HPI - Neuro Symptoms/Deficit General Chief Complaint: Neuro Symptoms/Deficit Stated Complaint: CAN'T LIFT ARM, WEAKNESS/ UNKNOWN LKW Time Seen by Provider: 05/13/25 10:06 History of Present Illness HPI Narrative: Patient woke up this morning and found that she cannot move her left arm. She does have a history of COPD and she is supposed to be on oxygen but does not like using it because she is still smoking. Related Data Home Medications ?Medication ?Instructions ?Recorded ?Confirmed ?Last Taken ?Type Aleve 220 mg PO BID 10/15/20 03/22/24 09/28/23 History Aspirin Childrens 81 mg PO DAILY 10/15/20 03/22/24 09/28/23 History Glucosamine 2,000 mg PO BID 10/15/20 03/22/24 09/28/23 History cetirizine 10 mg PO DAILY 10/15/20 03/22/24 09/28/23 History cyanocobalamin (vitamin B-12) 1,000 mcg PO DAILY 10/15/20 03/22/24 09/28/23 History 1,000 mcg tablet (Vitamin B-12) acetaminophen 500 mg tablet 500 mg PO Q6H PRN Pain 07/08/23 03/22/24 09/28/23 History (Acetaminophen Pain Relief) ascorbic acid (vitamin C) 1,000 mg 1 g PO DAILY 07/08/23 03/22/24 09/28/23 History tablet calcium carbonate (Antacid 168 mg PO TID 07/08/23 03/22/24 09/28/23 History Extra-Strength) calcium carbonate (Calcium 600) 600 mg PO DAILY 07/08/23 03/22/24 09/28/23 History magnesium 250 mg tablet 250 mg PO DAILY 07/08/23 03/22/24 09/28/23 History Allergies Allergy/AdvReac Type Severity Reaction Status Date / Time diphenhydramine Allergy Intermediate SEVERE Verified 03/22/24 10:05 ITCHING codeine AdvReac Unknown Confusion Verified 03/22/24 10:05 Penicillins AdvReac Unknown Confusion Verified 03/22/24 10:05 Review of Systems 2 Review of Systems: All systems reviewed & are unremarkable except as noted in HPI and below PMFSH Past Medical History Medical History (Updated 05/13/25 @ 13:29 by Kat Benton MD) 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 difficile colitis Acute respiratory failure with hypoxia Hypertension H/O compression fracture of spine Osteoporosis Peripheral arterial disease with history of revascularization Hyperlipidemia Pancolitis Surgical History Surgical History History of vascular surgery Right leg bypass surgery 09/12 H/O carpal tunnel repair Right Hand History of open reduction and internal fixation (ORIF) procedure Left Tibia Family History Family History Mother Heart attack Other Family history of cardiovascular disease Social History Social History Years smoked: 55 Smoking status: Current every day smoker Tobacco type: cigarettes Additional smoking assessment comments: smoked 1/2 ppd for over 50 years Alcohol intake: former Alcohol use details: Does not currently drink Substance use: never Substance use type: does not use Lack of Food: Never True Difficulty Paying Gas/Electric Bills: No Difficulty Paying for Meds: No Living arrangements: alone Additional living arrangements comments: who resides in her own home with her cat Occupation/Education: retired Gender identity (if verbalized by the patient): Female Spiritual care concerns: No Exam 2 Narrative: EXAMINATION OF ORGAN SYSTEMS/BODY AREAS: Constitutional: Vital signs per nursing GENERAL: In respiratory distress HEAD: Normal with no signs of head trauma. EYES: EOMI crosses midline, some diminished vision left visual hunter ENT: Facial droop left-sided LUNGS: Diminished lung sounds and wheezing HEART: [Regular rate and rhythm] ABD: [Soft], [nontender to palpation] EXT: No obvious deformity SKIN: [No rashes or lesions.] NEURO: [Alert and oriented x 3. Left arm flaccid paralysis with diminished sensation.] No drift lower extremities or right upper extremity. Left-sided facial droop. PSYCH: Normal affect Course Vital Signs Vital signs: Vital Signs Temperature 97.8 F 05/13/25 10:09 Pulse Rate 92 05/13/25 10:09 Respiratory Rate 23 H 05/13/25 10:09 Blood Pressure 96/58 L 05/13/25 10:09 Pulse Oximetry 75 L 05/13/25 10:09 Oxygen Delivery Room Air 05/13/25 10:09 Temperature 97.8 F 05/13/25 10:09 Pulse Rate 80 05/13/25 17:50 Respiratory Rate 20 05/13/25 17:50 Blood Pressure 105/47 L 05/13/25 17:50 Pulse Oximetry 80 L 05/13/25 17:50 Oxygen Delivery Room Air 05/13/25 10:09 Oxygen Flow Rate 2 05/13/25 14:00 MDM - Neuro Symptoms/Deficit MDM Narrative Medical decision making narrative: Patient presenting with new left-sided arm weakness, on exam she is also wheezing with respiratory distress, low oxygen, she is immediately placed on 15 L non-rebreather to maintain saturations above 92%, stroke protocol and initiated, EKG on my independent interpretation at 10:15 a.m. shows sinus rhythm rate 95, OK 156, QRS 82, QTC 402, there does seem to be some ST elevations in inferior leads without reciprocal changes Thankfully after getting a nebulizer treatment, she is now 97% on 2 L nasal cannula. Chest x-ray on my independent interpretation shows a large consolidation to left upper lung, very concerning for mass. CTA of head/neck thankfully without acute abnormality though it does show lung mass. I did have a long discussion with the patient, she tells me that she does not want any invasive procedures done, though she is agreeable to medications, she does not want to be admitted to the hospital, she did not want any further investigation for the cancer especially because she has been told this before and she does not want anything further done, she wants to go home so that she can at home. I did ask if I can at least put on oxygen, she declines this since she wants to continue smoking. While waiting for her daughter to come pick her up, she miraculously is able to move her left arm again and has regained complete strength. With shared decision making between patient, daughter at bedside, and grandson at bedside, she again reiterates she understands that she can not suffer permanent heart, lung, brain damage or diet, she still wants to go home and does not want anything further done. I did let her know she can always return for any further issues or if she changes her mind. To try to mitigate risk of future stroke he she is already on aspirin and statins and I will start her on Plavix also. Will also give her prescriptions for DuoNebs and steroids. Leaving against medical advice. Lab Data 05/13/25 10:23 05/13/25 10:23 Labs: Lab Results 05/13/25 05/13/25 05/13/25 Range/Units 10:07 10:23 12:07 WBC 11.2 H (4.5-10.0) K/mm3 RBC 4.30 (4.2-5.4) M/mm3 Hgb 9.5 L (12.0-15.0) g/dL Hct 34.1 L (37.0-47.0) % MCV 79.3 L (80-100) fl MCH 22.1 L (26-34) pg MCHC 27.9 L (32-36) g/dl RDW 20.6 H (11.5-14.5) % Plt Count 302 (150-375) k/mm3 MPV 9.2 (7.4-10.4) fl Immature Gran % (Auto) 0.6 H (0-0.5) % Neut % (Auto) 84.8 H (45.5-73.1) % Lymph % (Auto) 6.1 L (18.3-44.2) % [place] % (Auto) 7.7 (2.6-8.5) % Eos % (Auto) 0.4 (0-4.4) % Baso % (Auto) 0.4 (0.2-1.2) % Lymph # (Auto) 0.69 L (0.9-3.2) K/mm3 [place] # (Auto) 0.9 H (0.1-0.6) K/mm3 Eos # (Auto) 0.0 (0-0.3) K/mm3 Baso # (Auto) 0.1 (0.0-0.1) K/mm3 Abs Immat Gran (auto) 0.07 H (0.00-0.031) K/mm3 Absolute Neuts (auto) 9.5 H (1.3-6.7) K/mm3 Absolute Nucleated RBC 0.000 (0.0-0.012) K/mm3 Band Neutrophils % Not Reportable Nucleated RBC % 0.0 (0.0-0.2) % Platelet Estimate Adequate (Adequate) Hypochromasia 1+ Anisocytosis 1+ Ovalocytes 1+ Schistocytes None seen PT 15.2 H (11.1-14.7) Seconds INR 1.2 APTT 30.3 (22.3-36.8) Seconds D-Dimer 5.47 H (<0.48) ug/mL Sodium 142 (137-145) mmol/L Potassium 4.1 (3.4-5.0) mmol/L Chloride 103 (98-107) mmol/L Carbon Dioxide 32 H (22-30) mmol/L Anion Gap 7 (4-12) mmol/L BUN 7 D (7-17) mg/dL Creatinine 0.52 L (0.7-1.0) mg/dL Estim Creat Clear Calc 44 ml/min Estimated GFR > 60 (59 - ) Glucose 120 H (65-110) mg/dL POC Capillary Glucose 110 H (65-105) mg/dl Lactic Acid 1.5 (0.7-2.0) mmol/L Calcium 8.9 (8.4-10.2) mg/dL Total Bilirubin 0.4 (0.2-1.3) mg/dL AST 35 (14-36) U/L ALT 23 (6-35) U/L Alkaline Phosphatase 325 H (38-126) U/L Troponin I 0.052 H* (0.000-0.034) ng/mL Total Protein 7.5 (6.3-8.2) g/dL Albumin 3.5 (3.5-5.1) g/dL Critical Care Time Critical Care Time Critical Care Time: Yes Total Critical Care Time: 50 Discharge Plan Discharge Clinical Impression: Acute hypoxemic respiratory failure, Acute exacerbation of chronic obstructive pulmonary disease, Paralysis of left upper extremity, Acute CVA (cerebrovascular accident) Patient Disposition: Left Against Medical Advice Condition: Serious Instructions: Transient Ischemic Attack (ED), Lung Cancer (DC), COPD (Chronic Obstructive Pulmonary Disease) (ED) Additional Instructions: Please follow up with your doctor; we did discuss keeping you in the hospital for further workup for stroke and lung cancer and for oxygen therapy, you expressed that you understand that you can suffer permanent neurologic or lung damage or but you would like to go home at this time. You can always return to the emergency room if you change your mind or for any further issues. Patient Language: Gibraltarian Prescriptions: New clopidogrel [Plavix] 75 mg tablet 75 mg PO DAILY Qty: 30 0RF prednisone 20 mg tablet 40 mg PO DAILY 4 Days Qty: 8 0RF albuterol sulfate 90 mcg/actuation HFA aerosol inhaler 2 puff inhalation QID PRN (Reason: shortness of breath or wheezing) Qty: 8.5 0RF ipratropium-albuterol 0.5 mg-3 mg(2.5 mg base)/3 mL solution for nebulization 3 ml inhalation Q6H PRN (Reason: shortness of breath or wheezing) Qty: 90 0RF (DME) nebulizers [Compact Compressor Nebulizer] Misc See Rx Instructions .Route Qty: 1 0RF Rx Instructions: As directed No Action magnesium 250 mg tablet 250 mg PO DAILY ascorbic acid (vitamin C) 1,000 mg tablet 1 g PO DAILY Antacid Extra-Strength 168 mg calcium (420 mg) tablet,chewable 168 mg PO TID calcium carbonate [Calcium 600] 600 mg calcium (1,500 mg) tablet 600 mg PO DAILY acetaminophen [Acetaminophen Pain Relief] 500 mg tablet 500 mg PO Q6H PRN (Reason: Pain) Aleve 220 mg PO BID Aspirin Childrens 81 mg PO DAILY cyanocobalamin (vitamin B-12) [Vitamin B-12] 1,000 mcg Tablet 1,000 mcg PO DAILY Glucosamine 2,000 mg PO BID cetirizine 10 mg PO DAILY diphenoxylate-atropine [Lomotil] 2.5-0.025 mg tablet 1 tablet PO QID PRN (Reason: diarrhea) Qty: 20 0RF pantoprazole 40 mg tablet,delayed release (DR/EC) See Rx Instructions .ROUTE .COMPLEX Qty: 180 2RF Dose Instruction: TAKE 1 TABLET BY MOUTH TWICE A DAY Rx Instructions: TAKE 1 TABLET BY MOUTH TWICE A DAY mirtazapine 15 mg tablet 15 mg PO QHS Qty: 90 0RF fluticasone propion-salmeterol 250-50 mcg/dose blister with device 1 inh inhalation BID Qty: 180 2RF rosuvastatin 10 mg tablet 10 mg PO DAILY Qty: 90 0RF amlodipine 10 mg tablet 10 mg PO DAILY Qty: 90 0RF hydrocodone-acetaminophen 5-325 mg tablet 1 tablet PO QID PRN (Reason: pain) Qty: 28 0RF Follow-up/Referrals: Tony Harrison MD [Primary Care Provider] -
--- NOTE | 2025-05-13 15:34 | PC.NURSE ---
Pt states when her daughter returns she will be leaving AMA with her. Pt made aware of risks of leaving hospital. MD discussed with pt. Pt adamant about going home.
[2025-05-13] MEDS: predniSONE 20 MG TABLET 40 MG PO (17:33)
--- NOTE | 2025-05-13 17:51 | PC.NURSE ---
Pt took all tubing, cords, and oxygen off. Pt refusing to put oxygen back on, stating she is going home and does not want any more care. Pt a&ox4, leaves with family.
== END 2025-05-13 17:54 | disposition left against medical advice (07) ==
PROVIDERS: Emergency Provider Emergency Medicine; PCP Family Medicine Adolescent Medicine
DX: J96.01 Acute respiratory failure with hypoxia (principal); J44.1 Chronic obstructive pulmonary disease with (acute) exacerbation; I63.9 Cerebral infarction, unspecified; R29.711 NIHSS score 11; G83.9 Paralytic syndrome, unspecified; E78.5 Hyperlipidemia, unspecified; M81.0 Age-related osteoporosis without current pathological fracture; F17.210 Nicotine dependence, cigarettes, uncomplicated; Z86.0100 Personal history of colon polyps, unspecified; R94.31 Abnormal electrocardiogram [ECG] [EKG]; Z79.82 Long term (current) use of aspirin; Z79.899 Other long term (current) drug therapy
CPT/HCPCS: 36415; 70496; 70498; 71045; 71275; 74177; 80053; 82948; 83605; 84484; 85025; 85380; 85610; 85730; 87040; 92960; 93005; 94640; 96361; 96365; 99284; A9270; J0696; J7030; J7512; Q9967